=== PATIENT | male | born 1950 | race Caucasian/White ===

== ENCOUNTER 2024-05-03 08:54 | Outpatient (OUT) | payer MEDICARE, SELFPAY ==
--- NOTE | 2024-05-03 09:00 | CA_ITS ---
Patient Name: TYLER SANDY MR#: [id number] : 1950 Exam Date: 05/03/2024 Ordering Doctor: DR DONNA HOOKS M.D. ECHOCARDIOGRAM REPORT PROCEDURE: CA ECHO DOPPLER COMPLETE INDICATIONS: Mitral valve regurgitation COMPARISON: None. DESCRIPTION: COMPLETE ECHOCARDIOGRAM Real-time transthoracic echocardiography with 2D, M-mode, spectral and color flow Doppler performed. QUALITY: Technical quality was good. LEFT VENTRICLE: Normal chamber size. Mild concentric left ventricular hypertrophy. LV EF: Global left ventricular systolic function is hyperdynamic. Calculated left ventricular ejection fraction is 68% DIASTOLIC: Normal diastolic function. ATRIAL SEPTUM: Inadequately seen. LEFT ATRIUM: Normal chamber size. RIGHT ATRIUM: Normal chamber size. RIGHT VENTRICLE: Normal chamber size. Normal right ventricular systolic function. TRICUSPID VALVE: Normal mobility and thickness. No stenosis with trivial regurgitation. No evidence of pulmonary hypertension. RVSP 28mmHg MITRAL VALVE: Normal mobility and thickness. No evidence of mitral valve stenosis. There is no mitral annular calcification. Trivial mitral regurgitation. AORTIC VALVE: Normal trileaflet appearance. No visible sclerosis. Normal leaflet mobility. No evidence of aortic valve stenosis. No aortic regurgitation. AORTIC ROOT: Normal diameter and appearance. PULMONIC VALVE: Normal thickness and mobility. No stenosis. Trivial regurgitation. PERICARDIUM: No evidence of pericardial effusion. IVC: Collapses with inspirations. Normal size. CONCLUSION: 1. Global left ventricular systolic function is hyperdynamic; visually estimated ejection fraction 65 to 70% 2. Mildly increased left ventricular wall thickness 3. Normal right ventricular size and systolic function 4. Normal diastolic function 5. No significant valvular abnormalities Adult Echocardiography Procedure Report Left Ventricle LVEDD (3.7 - 5.6 cm): 4.15 cm LVESD (2.2 - 4.0 cm): 2.89 cm LVIVS thickness (0.6 - 1.2 cm): 1.31 cm LVPW thickness (0.5 - 1.0 cm): 1.13 cm e': 0.14 m/s E - e': 4.57 LVOT Max Gradient: 5.41 mm[Hg] LVOT Area (cm2): 1.16 m/s Peak Velocity (LVOT): 1.16 m/s Mean Velocity (LVOT): 0.69 m/s LVOT Diameter 2.03 cm Left Ventricular Ejection Fraction: 68.42 % Left Atrium LA Volume Index (2D A2C): 37.68 ml/m2 Left Atrium Systolic Dimension: 3.90 cm Mitral Valve MV E to A Ratio: 0.85 MV Max Gradient: MV Mean Gradient: Mitral Valve A-Wave Peak Velocity: 0.76 m/s Mitral Valve E-Wave Peak Velocity: 0.65 m/s Cardiovascular Orifice Area: Right Ventricle RV Internal Diastolic Dimension: 3.66 cm Aorta AO Root Diam: 3.31 cm Ascending Ao Diam: 2.71 cm Aortic Valve AoV Area (Peak Joseph): 3.15 cm2, 3.15 cm2 AoV Area (VTI): 3.00 cm2, 3.00 cm2 Deceleration Hernando: Pressure Half-Time: Peak Velocity(Antegrade Flow): 1.19 m/s Peak Gradient(Antegrade Flow): 5.68 mm[Hg] Mean Velocity(Antegrade Flow): 0.79 m/s Mean Gradient(Antegrade Flow): 2.96 mm[Hg] Velocity Time Integral: 29.25 cm Tricuspid Valve Peak Velocity (Regurgitant Flow): 2.26 m/s, 2.49 m/s, 2.41 m/s Peak Velocity: Pulmonic Valve Mean Gradient: 2.65 mm[Hg], 2.58 mm[Hg] Mean Velocity: 0.75 m/s, 0.75 m/s Peak Velocity: 1.14 m/s Peak Gradient: 5.31 mm[Hg], 5.02 mm[Hg] Right Atrium Right Atrium Systolic Pressure: 45.89 ml, 45.89 ml Dictated by: Donna Hooks M.D. on 05/03/2024 at 13:31 Approved by: Donna Hooks M.D. on 05/03/2024 at 13:41
== END 2024-05-03 08:55 | disposition home or self-care (01) ==
LOC: CARD 08:58
PROVIDERS: PCP Internal Medicine; Visit Provider Internal Medicine Interventional Cardiology
DX: I34.0 Nonrheumatic mitral (valve) insufficiency (principal)
CPT/HCPCS: 93306

== ENCOUNTER 2025-04-12 10:30 | Outpatient (OUT) | payer MEDICARE, SELFPAY ==
--- OUTSIDE RECORDS SUMMARY | 2025-04-12 10:37 | XMS_ITS | CCD ---
Author Organization [facility] Care Team Providers Care Pcu Rn Name Role Phone UNKNOWN, PHYSICIAN Referring Unavailable UNKNOWN, PHYSICIAN Primary Care Unavailable TRENA QUINTANA Admitting Unavailable JOSELO RAYMUNDO Attending Unavailable [place] Procedure Practitioner Unavailab nancy HOOKS EHAB A Surgeon Unavailable [place] Procedure Practitioner Unavailab SUMIT [place] Surgeon Unavailable [place] Procedure Practitioner Unavailab nancy RAYMUNDO JOSELO Surgeon Unavailable LAURA, DR CORDOVA Admitting Unavailable LAURA, DR CORDOVA Attending Unavailable LAURA, DR CORDOVA Primary Care Unavailable LAURA, DR CORDOVA Consulting Unavailable BUFFALO, DR JADE Rider Consulting Unavailable Kojo Rodriguez MD Primary Care Provider [phone] Kojo Rodriguez MD Unavailable Kojo Rodriguez MD Primary Care Provider [phone] TRENA HORVATH Admitting Unavailable TRENA HORVATH Attending Unavailable KOJO RODRIGUEZ Primary Care Unavailable TRENA HORVATH Admitting Unavailable TRENA HORVATH Attending Unavailable KOJO RODRIGUEZ Primary Care Unavailable KOJO RODRIGUEZ Attending Unavailable KOJO RODRIGUEZ Attending Unavailable KOJO RODRIGUEZ Attending Unavailable KOJO RODRIGUEZ Attending Unavailable KOJO RODRIGUEZ Attending Unavailable CALVIN ACOSTA Attending Unavailable KOJO RODRIGUEZ Referring Unavailable FLAVIO HOOKS Attending Unavailable Allergies Allergy Classification Reported Allergen(s) Allergy Type Date of Onset Reaction(s) Facility (9 sources) atorvastatin; Translations: [ATORVASTATIN] Drug Allergy 04-06-2024 [facility] Medications Current Medications Medication Drug Class(es) Dates Sig (Normalized) Sig (Original) calcium chloride 0.0014 meq/ml / potassium chloride 0.004 meq/ml / sodium chloride 0.103 meq/ml / sodium lactate 0.028 meq/ml injectable solution (2 sources) Start: 01-30-2025 IntraVENous, at 100 mL/hr, CONTINUOUS, Starting on Thu01/30/25 at 0915, Pre-op (day of surgery) Start: 12-26-2024 IntraVENous, a t 100 mL/hr, CONTINUOUS, Starting on Thu12/26/24 at 0815, Pre-op (day of surgery) empagliflozin 25 mg oral tablet (11 sources) Sodium-Glucose Cotransporter 2 Inhibitor Start: 03-02-2024 End: 03-02-2025 take 1 tablet by mouth once daily empagliflozin (Jardiance) 25 MG Indications: Type 2 diabetes mellitus with other circulatory complications (CMS/HCC) Take 1 tablet (25 mg) by mouth Daily 30 tablet 11 03/02/2024 03/02/2025 Active ezetimibe 10 mg oral tablet (4 sources) Dietary Cholesterol Absorption Inhibitor Start: 12-14-2024 End: 06-12-2025 take 1 tablet by mouth once daily ezetimibe (Zetia) 10 MG tablet Indications: Combined hyperlipidemia (CMS/HCC) , Statin intolerance Take 1 tablet (10 mg) by mouth Daily 30 tablet 5 12/14/2024 06/12/2025 Active lisinopril 20 mg oral tablet (11 sources) Angiotensin Converting Enzyme Inhibitor Start: 10-30-2023 End: 09-13-2025 take 1 tablet by mouth once daily lisinopril 20 MG tablet Indications: Benign essential HTN (CMS/HCC) Take 1 tablet (20 mg) by mouth Daily 30 tablet 11 09/13/2024 09/13/2025 Active metFORMIN hydrochloride 1000 mg oral tablet (13 sources) Biguanide Start: 12-14-2024 take 1 tablet by mouth in the morning metFORMIN (Glucophage) 1000 MG tablet Indications: Type 2 diabetes mellitus with other circulatory complications (CMS/HCC) Take 1 tablet (1,000 mg) by mouth in the morning and 1 tablet (1,000 mg) in the evening. Take with meals. 180 tablet 3 12/14/2024 Active Start: 12-14-2024 take 1 tablet by mirtha th in the morning metFORMIN (Glucophage) 1000 MG tablet Indications: Type 2 diabetes mellitus with other circulatory complications (CMS/HCC) Take 1 tablet (1,000 mg) by mouth in the morning and 1 tablet (1,000 mg) in the evening. Take with meals. 180 tablet 3 12/14/2024 Active Start: 06-13-2024 End: 12-14-2024 take 1 tablet by mouth in the morning metFORMIN (Glucophage) 1000 MG tablet Indications: Type 2 diabetes mellitus with other circulatory complications (CMS/HCC) Take 1 tablet (1,000 mg) by mouth in the morning and 1 tablet (1,000 mg) in the evening. Take with meals. 180 tablet 09/13/2024 12/14/2024 Discontinued (Reorder) 24 hr metoprolol succinate 25 mg extended release oral tablet (11 sources) beta-Adrenergic Carolyn Start: 04-22-2023 take 1 tablet by mouth every twenty-four hours in the morning metoprolol succinate XL (Toprol-XL) 25 MG 24 hr tablet Take 1 tablet by mouth in the morning. 04/22/2023 Active take 1 tablet by mouth once yunior y metoprolol succinate (TOPROL XL) 25 MG extended release tablet Take 1 tablet by mouth daily Suspended naloxone 0.4 mg in 10 mL sodium chloride syringe (2 sources) Start: 01-30-2025 IntraVENous, P RN, Opioid Reversal, Starting on Thu01/30/25 at 1107, PRN if respiratory rate is less than 6/min and patient is difficult to arouse then notify physician STAT. Mix 9 mL of sodium chloride 0.9% with 0.4 mg (1 mL) of naloxone (NARCAN) in 10 mL syringe. (Note: dilution is 0.04 mg/mL) Give 0.08 mg (2 mL of special dilution), slow IV push, repeat up to 0.4 mg (10 mL) or until patient is responsive to physical stimulation and respiratory rate is equal to or greater than 6 breaths/min. Continue to observe, if no response within 3 minutes of administration of 0.4 mg (10 mL) total, repeat dose (0.4 mg as administered previously). Concentration 0.04 mg/mL, PACU only Start: 12-26-2024 IntraVENous, P RN, Opioid Reversal, Starting on Thu12/26/24 at 0935, PRN if respiratory rate is less than 6/min and patient is difficult to arouse then notify physician STAT. Mix 9 mL of sodium chloride 0.9% with 0.4 mg (1 mL) of naloxone (NARCAN) in 10 mL syringe. (Note: dilution is 0.04 mg/mL) Give 0.08 mg (2 mL of special dilution), slow IV push, repeat up to 0.4 mg (10 mL) or until patient is responsive to physical stimulation and respiratory rate is equal to or greater than 6 breaths/min. Continue to observe, if no response within 3 minutes of administration of 0.4 mg (10 mL) total, repeat dose (0.4 mg as administered previously). Concentration 0.04 mg/mL, PACU only Completed/Discontinued Medications Medication Drug Class(es) Dates Sig (Normalized) Sig (Original) aspirin 81 mg delayed release oral tablet (11 sources) Platelet Aggregation Inhibitor, Nonsteroidal Anti-inflammatory Drug take 1 tablet by mouth once daily aspirin 81 MG EC tablet Take 1 tablet by mouth daily Suspended cetirizine hydrochloride 10 mg oral tablet (11 sources) Histamine-1 Receptor Antagonist take 1 tablet by mouth once daily cetirizine (ZYRTEC) 10 MG tablet Take 1 tablet by mouth daily Suspended Misc Natural Products (GLUCOSAMINE CHOND CMP ADVANCED PO) (2 sources) Misc Natural Products (GLUCOSAMINE CHOND CMP ADVANCED PO) Take by mouth Suspended Misc Natural Pro ducts (GLUCOSAMINE CHOND CMP ADVANCED PO) Take by mouth Active Multiple Vitamins-Minerals (THERAPEUTIC MULTIVITAMIN-MINERALS) tablet (2 sources) take 1 tablet by mouth once daily Multiple Vitamins-Minerals (THERAPEUTIC MULTIVITAMIN-MINERALS) tablet Take 1 tablet by mouth daily Suspended take 1 tablet by mouth once yunior y Multiple Vitamins-Minerals (THERAPEUTIC MULTIVITAMIN-MINERALS) tablet Take 1 tablet by mouth daily Active omeprazole 20 mg delayed release oral capsule (11 sources) Proton Pump Inhibitor take 1 capsule by mouth once daily omeprazole (PRILOSEC) 20 MG delayed release capsule Take 1 capsule by mouth daily Suspended take 1 tablet by mouth in the mo rning omeprazole OTC (PriLOSEC OTC) 20 MG EC tablet Take 1 tablet by mouth in the morning. Active phenylephrine hydrochloride 25 mg/ml ophthalmic solution (2 sources) alpha-1 Adrenergic Agonist Start: 01-30-2025 1 drop, Left Eye, SE E ADMIN INSTRUCTIONS, Starting on Thu01/30/25 at 0846, Until Discontinued, To operative eye(s) for 3-5 doses every 5 minutes, starting 30 minutes prior to surgery until dilated, RPh - enter number of doses based on parameters defined by the physician in the admin. comments., Pre-op (day of surgery) Start: 12-26-2024 1 drop, Right Eye, SEE ADMIN INSTRUCTIONS, Starting on Thu12/26/24 at 0747, Until Discontinued, To operative eye(s) for 3-5 doses every 5 minutes, starting 30 minutes prior to surgery, [facility] - enter number of doses based on parameters defined by the physician in the admin. comments., Pre-op (day of surgery) proparacaine hydrochloride 5 mg/ml ophthalmic solution (2 sources) Local Anesthetic Start: 01-30-2025 1 drop, Left Eye, SEE ADMIN INSTRUCTIONS, Starting on Thu01/30/25 at 0846, Until Discontinued, Into the operative eye(s) every 5 minutes for PRN doses starting 30 minutes prior to surgery., Pre-op (day of surgery) Start: 12-26-2024 1 drop, Right Eye, SEE ADMIN INSTRUCTIONS, Starting on Thu12/26/24 at 0747, Until Discontinued, Into the operative eye(s) every 5 minutes for PRN doses starting 30 minutes prior to surgery., Pre-op (day of surgery) rosuvastatin calcium 20 mg oral tablet (6 sources) HMG-CoA Reductase Inhibitor Start: 10-30-2023 End: 10-29-2024 take 1 tablet by mouth in the morning rosuvastatin (Crestor) 20 MG tablet Indications: Coronary artery disease involving iliamna coronary artery of iliamna heart without angina pectoris (CMS/HCC) Take 1 tablet (20 mg) by mouth in the morning. 30 tablet 11 10/30/2023 10/18/2024 Discontinued Saw Tunas, Serenoa repens, (SAW PALMETTO PO) (2 sources) Saw Tunas, Serenoa repens, (SAW PALMETTO PO) Take by mouth Suspended Saw Tunas, Se renoa repens, (SAW PALMETTO PO) Take by mouth Active 5 ml sodium chloride 9 mg/ml injection (20 sources) Start: 01-30-2025 Start: 01-30-2025 Start: 01-30-2025 IntraVENous, a t 5-250 mL/hr, PRN, if patient receiving piggyback infusions and maintenance fluids are not ordered, Starting on Thu01/30/25 at 1107, For piggyback infusion, administer at same rate as piggyback for a total of 25 mL. Enter 25 mL into dose field and piggyback rate into rate field of order. If piggyback is infusing at a rate less than 100 mL/hr, enter 25 mL into dose field and 100 mL/hr into rate field of order., PACU only Start: 01-30-2025 5-40 mL, Intra VENous, EVERY 12 HOURS SCHEDULED (2 times per day), First dose on Thu01/30/25 at 1130, Until Discontinued, For Line Patency: Peripheral IV = 5 mL; Midline or Central Line = 10 mL/lumen. If following IV push medication, administer flush at same rate as the IV push. Flush volume is determined by type of infusion therapy being given. For non-viscous solutions use: Peripheral IV = 5 mL Midline or Central Line = 10 mL/lumen For viscous solutions (i.e. blood components, parenteral nutrition, contrast media, or after obtaining blood sample) use: Peripheral IV = 10 mL Midline or Central Line = 20 mL/lumen, PACU only Start: 01-30-2025 5-40 mL, Intra VENous, PRN, Starting on Thu01/30/25 at 1107, Until Discontinued, Line Care, After every IV line use, For Line Patency: Peripheral IV = 5 mL; Midline or Central Line = 10 mL/lumen. If following IV push medication, administer flush at same rate as the IV push. Flush volume is determined by type of infusion therapy being given. For non-viscous solutions use: Peripheral IV = 5 mL Midline or Central Line = 10 mL/lumen For viscous solutions (i.e. blood components, parenteral nutrition, contrast media, or after obtaining blood sample) use: Peripheral IV = 10 mL Midline or Central Line = 20 mL/lumen, PACU only Start: 12-26-2024 5-40 mL, Intra VENous, EVERY 12 HOURS SCHEDULED (2 times per day), First dose on Thu12/26/24 at 1000, Until Discontinued, For Line Patency: Peripheral IV = 5 mL; Midline or Central Line = 10 mL/lumen. If following IV push medication, administer flush at same rate as the IV push. Flush volume is determined by type of infusion therapy being given. For non-viscous solutions use: Peripheral IV = 5 mL Midline or Central Line = 10 mL/lumen For viscous solutions (i.e. blood components, parenteral nutrition, contrast media, or after obtaining blood sample) use: Peripheral IV = 10 mL Midline or Central Line = 20 mL/lumen, PACU only Start: 12-26-2024 Start: 12-26-2024 Start: 12-26-2024 Start: 12-26-2024 5-40 mL, Intra VENous, EVERY 12 HOURS SCHEDULED (2 times per day), First dose on Thu12/26/24 at 0900, Until Discontinued, For Line Patency: Peripheral IV = 5 mL; Midline or Central Line = 10 mL/lumen. If following IV push medication, administer flush at same rate as the IV push. Flush volume is determined by type of infusion therapy being given. For non-viscous solutions use: Peripheral IV = 5 mL Midline or Central Line = 10 mL/lumen For viscous solutions (i.e. blood components, parenteral nutrition, contrast media, or after obtaining blood sample) use: Peripheral IV = 10 mL Midline or Central Line = 20 mL/lumen, Pre-op (day of surgery) Start: 12-26-2024 IntraVENous, a t 5-250 mL/hr, PRN, if patient receiving piggyback infusions and maintenance fluids are not ordered, Starting on Thu12/26/24 at 0935, For piggyback infusion, administer at same rate as piggyback for a total of 25 mL. Enter 25 mL into dose field and piggyback rate into rate field of order. If piggyback is infusing at a rate less than 100 mL/hr, enter 25 mL into dose field and 100 mL/hr into rate field of order., PACU only Start: 12-26-2024 5-40 mL, Intra VENous, PRN, Starting on Thu12/26/24 at 0935, Until Discontinued, Line Care, After every IV line use, For Line Patency: Peripheral IV = 5 mL; Midline or Central Line = 10 mL/lumen. If following IV push medication, administer flush at same rate as the IV push. Flush volume is determined by type of infusion therapy being given. For non-viscous solutions use: Peripheral IV = 5 mL Midline or Central Line = 10 mL/lumen For viscous solutions (i.e. blood components, parenteral nutrition, contrast media, or after obtaining blood sample) use: Peripheral IV = 10 mL Midline or Central Line = 20 mL/lumen, PACU only tetracaine hydrochloride 5 mg/ml ophthalmic solution (2 sources) Lissa Local Anesthetic Start: 01-30-2025 1 drop, Left Eye, SE E ADMIN INSTRUCTIONS, Starting on Thu01/30/25 at 0846, Until Discontinued, Into the operative eye(s) every 5 minutes for PRN doses starting 30 minutes prior to surgery., Pre-op (day of surgery) Start: 12-26-2024 1 drop, Right Eye, SEE ADMIN INSTRUCTIONS, Starting on Thu12/26/24 at 0747, Until Discontinued, Into the operative eye(s) every 5 minutes for PRN doses starting 30 minutes prior to surgery., Pre-op (day of surgery) tropicamide 10 mg/ml ophthalmic solution (2 sources) Anticholinergic Start: 01-30-2025 1 drop, Left E ye, SEE ADMIN INSTRUCTIONS, Starting on Thu01/30/25 at 0846, Until Discontinued, To operative eye(s) for 3-5 doses every 5 minutes, starting 30 minutes prior to surgery until dilated, RPh - enter number of doses based on parameters defined by the physician in the admin. comments., Pre-op (day of surgery) Start: 12-26-2024 1 drop, Right Eye, SEE ADMIN INSTRUCTIONS, Starting on Thu12/26/24 at 0747, Until Discontinued, To operative eye(s) for 3-5 doses every 5 minutes, starting 30 minutes prior to surgery, RPh - enter number of doses based on parameters defined by the physician in the admin. comments., Pre-op (day of surgery) Problems Active Problems Problem Classification Problem Date Documented Date Episodic/Chronic Cardiac dysrhythmias (2 sources) Paroxysmal atrial fibrillation; Translations: [Paroxysmal atrial fibrillation] 12-14-2024 Chronic Cataract (7 sources) Senile combined form cataract of right eye; Translations: [Combined forms of age-related cataract, right eye] Onset: 12-25-2024 Resolved: 01-30-2025 12-26-2024 Chronic Coronary atherosclerosis and other heart disease (20 sources) Coronary arteriosclerosis; Translations: [Atherosclerotic heart disease of iliam[place] coronary artery without angina pectoris] Onset: 04-12-2021 Resolved: 12-02-2023 10-30-2023 Chronic Diabetes mellitus with complications (15 sources) Type 2 diabetes mellitus; Translations: [Type 2 diabetes mellitus with other circulatory complications] Onset: 10-30-2023 10-30-2023 Chronic Diabetes mellitus without complication (11 sources) Type 2 diabetes mellitus without complication; Translations: [Type 2 diabetes mellitus without complications] Onset: 04-22-2023 Resolved: 12-02-2023 12-02-2023 Chronic Disorders of lipid metabolism (14 sources) Mixed hyperlipidemia; Translations: [Mixed hyperlipidemia] Onset: 10-30-2023 09-01-2024 Chronic Diverticulosis and diverticulitis (9 sources) Diverticula of intestine; Translations: [Diverticulosis of large intestine without perforation or abscess without bleeding] Onset: 10-30-2023 10-30-2023 Chronic Esophageal disorders (9 sources) Gastroesophageal reflux disease without esophagitis; Translations: [Gastro-esophageal reflux disease without esophagitis] Onset: 10-30-2023 10-30-2023 Chronic Essential hypertension (11 sources) Benign essential hypertension; Translations: [Essential (primary) hypertension] Onset: 04-22-2023 10-30-2023 Chronic Heart valve disorders (2 sources) Nonrheumatic mitral (valve) insufficiency; Translations: [Nonrheumatic mitral (valve) insufficiency] Onset: 04-05-2025 Chronic Osteoarthritis (18 sources) Osteoarthritis of right hip joint; Translations: [Unilateral primary osteoarthritis, right hip] Onset: 10-30-2023 10-30-2023 Chronic Other connective tissue disease (2 sources) Muscle pain; Translations: [Myalgia, unspecified site] 09-01-2024 Episodic Other male genital disorders (9 sources) Secondary erectile dysfunction; Translations: [Male erectile dysfunction, unspecified] Onset: 10-30-2023 10-30-2023 Chronic Other male genital disorders (2 sources) Male erectile dysfunction, unspecified; Translations: [Impotence of organic origin] 12-14-2024 Chronic Other nutritional; endocrine; and metabolic disorders (1 source) Cholesterol level - finding; Translations: [Lipoprotein deficiency] Onset: 10-30-2023 10-30-2023 Chronic Other nutritional; endocrine; and metabolic disorders (9 sources) Obese class I; Translations: [Obesity (BMI 30.0-34.9)] Onset: 10-30-2023 10-30-2023 Chronic Other screening for suspected conditions (not mental disorders or infectious disease) (4 sources) Encounter for screening for cardiovascular disorders; Translations: [ENC FOR SCREENING FOR CV DISORDERS] Onset: 01-07-2023 Episodic Other skin disorders (2 sources) Open comedone; Translations: [Acne vulgaris] 10-18-2024 Episodic Other upper respiratory disease (9 sources) Seasonal allergic rhinitis; Translations: [Other seasonal allergic rhinitis] Onset: 10-30-2023 10-30-2023 Chronic Residual codes; unclassified (1 source) Personal history of other specified conditions; Translations: [PERSONAL HISTORY OTH SPEC CONDITION] Onset: 01-12-2023 Episodic Residual codes; unclassified (4 sources) Other specified health status; Translations: [Other drug allergy] Onset: 12-14-2024 12-14-2024 Episodic Spondylosis; intervertebral disc disorders; other back problems (9 sources) Lumbosacral spondylosis without myelopathy; Translations: [Spondylosis without myelopathy or radiculopathy, lumbosacral region] Onset: 10-30-2023 10-30-2023 Chronic Past or Other Problems Problem Classification Problem Date Documented Da te Episodic/Chronic Cardiac dysrhythmias (9 sources) ECG: sinus bradycardia; Translations: [Bradycardia, unspecified] Onset: 04-22-2023 10-30-2023 Episodic Neoplasms of unspecified nature or uncertain behavior (9 sources) Neoplasm of uncertain behavior of skin; Translations: [Neoplasm of uncertain behavior of skin] Onset: 10-30-2023 10-30-2023 Episodic Other non-epithelial cancer of skin (11 sources) Squamous cell carcinoma of scalp; Translations: [Squamous cell carcinoma of skin of scalp and neck] Onset: 10-30-2023 10-30-2023 Episodic Results Test Name Value Interpretation Reference Range Facility Office Visiton 04-05-2025 Follow-up visit [id number] Ama Villegas 1950 M Date Provider Department Center 04/05/2025 [id number], EHAB CARD [facility] Family History Family history unknown: Yes Family Status - Relation Status Age at Mother Father Level of Service:30[address] [place] OFFICE/OUTPATIENT ESTABLISHED MOD MDM 30 MIN Normal [facility] ALBUMIN, RANDOM URINE W/CREA Deana 02-14-2025 ALBUMIN, URINE 0.4 mg/dL Normal See Note: [facility] Comment on above: Result Comment: Refe rence Range: Reference Range Not established Performed By: #### [id number], [id number] #### [facility] [address], [address] [place] [address] Engineering Team Supervisor: Scout Boudreaux MD ALBUMIN/CREATININE RATIO, RANDOM URINE 8 mg/g creat Normal <30 [facility] Comment on above: Result Comment: The ADA defines abnormalities in albumin excretion as follows: Albuminuria Category Result (mg/g creatinine) Normal to Mildly increased <30 Moderately increased 30-299 Severely increased > OR = 300 The ADA recommends that at least two of three specimens collected within a 3-6 month period be abnormal before considering a patient to be within a diagnostic category. Performed By: #### [id number], [id number] #### [facility] [address], [address] [place] [address] Engineering Team Supervisor: Scout Boudreaux MD Creatinine (U) [Mass/Vol] 53 mg/dL Normal 20-320 [facility] Comment on above: Performed By: #### [id number], [id number] #### [facility] [address], [address] [place] [address] Engineering Team Supervisor: Scout Boudreaux MD PSA, TOTALon 02-14-2025 PSA, TOTAL 0.30 ng/mL Normal < OR = 4.00 [facility] Comment on above: Result Comment: The total PSA value from this assay system is standardized against the WHO standard. The test result will be approximately 20% lower when compared to the equimolar-standardized total PSA ([place]). Comparison of serial PSA results should be interpreted with this fact in mind. This test was performed using the Siemens chemiluminescent method. Values obtained from different assay methods cannot be used interchangeably. PSA levels, regardless of value, should not be interpreted as absolute evidence of the presence or absence of disease. Performed By: #### [id number], [id number] #### [facility] [address], [address] [place] [address] Engineering Team Supervisor: Scout Boudreaux MD LIPID PANEL, STANDARDon 01-21 Cholesterol [Mass/Vol] 138 mg/dL Normal <200 [facility] Comment on above: Order Comment: FASTI NG:YES FASTING: YES Performed By: #### [id number] #### [facility] [address], [address] [place] [address] Engineering Team Supervisor: Scout Boudreaux MD Cholesterol in HDL [Mass/Vol] 45 mg/dL Normal > OR = 40 [facility] Comment on above: Order Comment: FASTI NG:YES FASTING: YES Performed By: #### [id number] #### [facility] [address], [address] [place] [address] Engineering Team Supervisor: Scout Boudreaux MD Cholesterol in LDL [Mass/Vol] 60 mg/dL Normal [facility] Comment on above: Order Comment: FASTI NG:YES FASTING: YES Result Comment: Refe rence range: <100 Desirable range <100 mg/dL for primary prevention; <70 mg/dL for patients with CHD or diabetic patients with > or = 2 CHD risk factors. LDL-C is now calculated using the Nimisha calculation, which is a validated novel method providing better accuracy than the Friedewald equation in the estimation of LDL-C. Alcides SS et al. HELLEN. 2013;310(19): 4469-5823 (http://education.ConceptoMed/faq/URR907) Performed By: #### 7 [id number] #### [facility] [address], [address] [place] [address] Engineering Team Supervisor: Scout Boudreaux MD Cholesterol.total/C holesterol in HDL [Mass ratio] 3.1 {ratio} Normal <5.0 [facility] Comment on above: Order Comment: FASTI NG:YES FASTING: YES Performed By: #### 7 [id number] #### [facility] [address], [address] [place] [address] Engineering Team Supervisor: Scout Boudreaux MD NON HDL CHOLESTEROL 93 mg/dL (calc) Normal <130 [facility] Comment on above: Order Comment: FASTI NG:YES FASTING: YES Result Comment: For patients with diabetes plus 1 major ASCVD risk factor, treating to a non-HDL-C goal of <100 mg/dL (LDL-C of <70 mg/dL) is considered a therapeutic option. Performed By: #### 7 [id number] #### [facility] [address], [address] [place] [address] Engineering Team Supervisor: Scout Boudreaux MD Triglyceride [Mass/Vol] 278 mg/dL High <150 [facility] Comment on above: Order Comment: FASTI NG:YES FASTING: YES Result Comment: If a non-fasting specimen was collected, consider repeat triglyceride testing on a fasting specimen if clinically indicated. Arnie et al. J. of Clin. Lipidol. 2015;9:129-169. Performed By: #### 7 600 #### [facility] [place] [address] Engineering Team Supervisor: Scout Boudreaux MD [facility] METABOLIC [facility] 12-15-2024 Albumin [Mass/Vol] 4.7 g/dL Normal 3.6-5.1 [facility] Comment on above: Order Comment: FASTI NG:NO FASTING: NO Performed By: #### 4 96, 67095 #### [facility] [place] [address] Engineering Team Supervisor: Scout Boudreaux MD Albumin/Globulin [Mass ratio] 1.6 {ratio} Normal 1.0-2.5 [facility] Comment on above: Order Comment: FASTI NG:NO FASTING: NO Performed By: #### 4 96, 66756 #### [facility] [place] [address] Engineering Team Supervisor: Scout Boudreaux MD ALP [Catalytic activity/Vol] 90 U/L Normal 35-144 [facility] Comment on above: Order Comment: FASTI NG:NO FASTING: NO Performed By: #### 4 96, [id number] #### [facility] [place] [address] Engineering Team Supervisor: Scout Boudreaux MD ALT [Catalytic activity/Vol] 22 U/L Normal 9-46 [facility] Comment on above: Order Comment: FASTI NG:NO FASTING: NO Performed By: #### 4 96, 79893 #### [facility] [place] [address] Engineering Team Supervisor: Scout Boudreaux MD AST [Catalytic activity/Vol] 22 U/L Normal 10-35 [facility] Comment on above: Order Comment: FASTI NG:NO FASTING: NO Performed By: #### 4 96, 03679 #### [facility] [address], [address] [place] [address] Engineering Team Supervisor: Scout Boudreaux MD Bilirubin [Mass/Vol] 0.5 mg/dL Normal 0.2-1.2 [facility] Comment on above: Order Comment: FASTI NG:NO FASTING: NO Performed By: #### 4 96, 14475 #### [facility] [address], [address] [place] [address] Engineering Team Supervisor: Scout Boudreaux MD BUN/CREATININE RATIO SEE NOTE: Normal 6- [facility] Comment on above: Order Comment: FASTI NG:NO FASTING: NO Result Comment: Not Reported: BUN and Creatinine are within reference range. Performed By: #### 4 96, 41635 #### [facility] [address], [address] [place] [address] Engineering Team Supervisor: Scout Boudreaux MD Calcium [Mass/Vol] 9.7 mg/dL Normal 8.6-10.3 [facility] Comment on above: Order Comment: FASTI NG:NO FASTING: NO Performed By: #### 4 96, 39122 #### [facility] [address], [address] [place] [address] Engineering Team Supervisor: Scout Boudreaux MD Chloride [Moles/Vol] 104 mmol/L Normal 98-110 [facility] Comment on above: Order Comment: FASTI NG:NO FASTING: NO Performed By: #### 4 96, 18438 #### [facility] [address], [address] [place] [address] Engineering Team Supervisor: Scout Boudreaux MD CO2 [Moles/Vol] 28 mmol/L Normal 20-32 [facility] Comment on above: Order Comment: FASTI NG:NO FASTING: NO Performed By: #### 4 96, 96143 #### [facility] [address], [address] [place] [address] Engineering Team Supervisor: Scout Boudreaux MD Creatinine [Mass/Vol] 0.75 mg/dL Normal 0.70-1.28 [facility] Comment on above: Order Comment: FASTI NG:NO FASTING: NO Performed By: #### 4 96, 52488 #### [facility] [address], [address] [place] [address] Engineering Team Supervisor: Scout Boudreaux MD GFR/1.73 sq M.predicted among non-blacks MDRD (S/P/Bld) [Vol rate/Area] 95 mL/min/{1.73_m2} Normal > OR = 60 [facility] Comment on above: Order Comment: FASTI NG:NO FASTING: NO Performed By: #### 4 96, 79880 #### [facility] [place] [address] Engineering Team Supervisor: Scout Boudreaux MD Globulin (S) [Mass/Vol] 3.0 g/dL Normal 1.9-3.7 [facility] Comment on above: Order Comment: FASTI NG:NO FASTING: NO Performed By: #### 4 96, 42777 #### [facility] [place] [address] Engineering Team Supervisor: Scout Boudreaux MD Glucose [Mass/Vol] 140 mg/dL High 65-139 [facility] Comment on above: Order Comment: FASTI NG:NO FASTING: NO Result Comment: Non-fasting reference interval For someone without known diabetes, a glucose value >125 mg/dL indicates that they may have diabetes and this should be confirmed with a follow-up test. Performed By: #### 4 , 01321 #### [facility] [address], [address] [place] [address] Engineering Team Supervisor: Scout Boudreaux MD Potassium [Moles/Vol] 4.4 mmol/L Normal 3.5-5.3 [facility] Comment on above: Order Comment: FASTI NG:NO FASTING: NO Performed By: #### 4 , 43710 #### [facility] [place] [address] Engineering Team Supervisor: Scout Boudreaux MD Protein [Mass/Vol] 7.7 g/dL Normal 6.1-8.1 [facility] Comment on above: Order Comment: FASTI NG:NO FASTING: NO Performed By: #### 4 96, 76126 #### [facility] [address], [address] [place] [address] Engineering Team Supervisor: Scout Boudreaux MD Sodium [Moles/Vol] 141 mmol/L Normal 135-146 [facility] Comment on above: Order Comment: FASTI NG:NO FASTING: NO Performed By: #### 4 96, 42829 #### [facility] [address], [address] [place] [address] Engineering Team Supervisor: Scout Boudreaux MD Urea nitrogen [Mass/Vol] 17 mg/dL Normal 7-25 [facility] Comment on above: Order Comment: FASTI NG:NO FASTING: NO Performed By: #### 4 96, 38458 #### [facility] [address], [address] [place] [address] Engineering Team Supervisor: Scout Boudreaux MD HEMOGLOBIN A1con 12-15-2024 HEMOGLOBIN A1c 6.8 % of total Hgb High <5.7 [facility] Comment on above: Result Comment: For someone without known diabetes, a hemoglobin A1c value of 6.5% or greater indicates that they may have diabetes and this should be confirmed with a follow-up test. For someone with known diabetes, a value <7% indicates that their diabetes is well controlled and a value greater than or equal to 7% indicates suboptimal control. A1c targets should be individualized based on duration of diabetes, age, comorbid conditions, and other considerations. Currently, no consensus exists regarding use of hemoglobin A1c for diagnosis of diabetes for children. Performed By: #### 4 96, 41593 #### [facility] [address], [address] [place] [address] Engineering Team Supervisor: Scout Boudreaux MD Laboratory - Hematology and Cell countson 12-14-2024 HbA1c (Bld) [Mass fraction] 6.7 % [facility] [employer] No Panel Informationon 12-14 [facility] [employer] e Laboratory - Hematology and Cell countson 09-01-2024 HbA1c (Bld) [Mass fraction] 7.0 % [employer] No Panel Informationon 09-01 [employer] US ABD AORTA SCREENINGon US ABD AORTA SCREENING EXAMINATION: US ABD AORTA SCREENING HISTORY: Screening for cardiovascular system disease COMPARISON: No relevant comparison available. TECHNIQUE: Ultrasound examination of the retroperitoneal area was performed, with a focused evaluation of the abdominal aorta. FINDINGS: Proximal aorta: 2.8 x 2.4 cm Mid aorta: 2.3 x 2.3 cm Distal aorta: 2.3 x 2.2 cm Right common iliac artery: 1.4 x 1.5 cm Left common iliac artery: 1.5 x 1.3 cm Normal color and Doppler flow. Mild to moderate atherosclerosis IMPRESSION: No abdominal aortic aneurysm Electronically authenticated by: JADE CASTANON Date: 2023-01-07 09:26 Normal [facility] BASIC METABOLIC PANELon - Calcium [Mass/Vol] 10.3 mg/dL Normal 8.6-10.[address] [facility] Comment on above: Order Comment: No: D o not add to previous draw Performed By: #### 0 0071 #### [facility] [address] [place] [address], [facility] Chloride [Moles/Vol] 96 mmol/L Low 98-107 [facility] Comment on above: Order Comment: No: D o not add to previous draw Performed By: #### 0 0071 #### [facility] [address] [place] [address], [place] CO2 [Moles/Vol] 26 mmol/L Normal 21-31 [facility] Comment on above: Order Comment: No: D o not add to previous draw Performed By: #### 0 0071 #### [facility] [address] [place] [address], [place] Creatinine [Mass/Vol] 0.95 mg/dL Normal 0.70-1.30 [facility] Comment on above: Order Comment: No: D o not add to previous draw Performed By: #### 0 0071 #### [facility] [address] [place] [address], [place] GFR/1.73 sq M predicted among blacks MDRD (S/P/Bld) [Vol rate/Area] mL/min/{1.73_m2} Normal >60 [facility] Comment on above: Order Comment: No: D o not add to previous draw Performed By: #### 0 0071 #### [facility] [address] [place] [address], [place] GFR/1.73 sq M predicted among non-blacks MDRD (S/P/Bld) [Vol rate/Area] mL/min/{1.73_m2} Normal >60 [facility] Comment on above: Order Comment: No: D o not add to previous draw Performed By: #### 0 0071 #### [facility] [address] [place] [address], [place] Glucose [Mass/Vol] 213 mg/dL High 70-100 [facility] Comment on above: Order Comment: No: D o not add to previous draw Performed By: #### 0 0071 #### [facility] [address] [place] [address], [place] Potassium [Moles/Vol] 4.1 mmol/L Normal 3.5-5.1 [facility] Comment on above: Order Comment: No: D o not add to previous draw Performed By: #### 0 0071 #### [facility] [address] [place] [address], [place] Sodium [Moles/Vol] 133 mmol/L Low 136-145 [facility] Comment on above: Order Comment: No: D o not add to previous draw Performed By: #### 0 0071 #### [facility] [address] [place] [address], [place] Urea nitrogen [Mass/Vol] 28 mg/dL High 7-25 [facility] Comment on above: Order Comment: No: D o not add to previous draw Performed By: #### 0 0071 #### [facility] [address] [place] [address], [facility] CBC COMPLETE BLOOD COUNTon 12-12-2018 Erythrocyte distribution width (RBC) [Ratio] 12.1 % Normal 11.5-15.0 [facility] Comment on above: Order Comment: No: D o not add to previous draw Performed By: #### 0 0071 #### [facility] [address] [place] [id number], [facility] Hematocrit (Bld) [Volume fraction] 37.1 % Low 39.0-50.0 The [facility] Comment on above: Order Comment: No: D o not add to previous draw Performed By: #### 0 0071 #### [facility] [address] [place] [address], [facility] Hemoglobin (Bld) [Mass/Vol] 12.7 g/dL Low 13.0-17.0 [facility] Comment on above: Order Comment: No: D o not add to previous draw Performed By: #### 0 0071 #### [facility] [address] [place] [address], [facility] MCH (RBC) [Entitic mass] 30.6 pg Normal 27.0-33.0 The [facility] Comment on above: Order Comment: No: D o not add to previous draw Performed By: #### 0 0071 #### [facility] [address] [place] [address], [facility] MCHC (RBC) [Mass/Vol] 34.2 g/dL Normal 32.0-35.0 The [facility] Comment on above: Order Comment: No: D o not add to previous draw Performed By: #### 0 0071 #### [facility] [address] [place] [id number], [facility] MCV (RBC) [Entitic vol] 89.4 fL Normal 82.0-98.0 The [facility] Comment on above: Order Comment: No: D o not add to previous draw Performed By: #### 0 0071 #### [facility] [address] [facility] [place] [address], [facility] Nucleated RBC/100 WBC (Bld) [Ratio] 0 % Normal 0-0 [facility] Comment on above: Order Comment: No: D o not add to previous draw Performed By: #### 0 0071 #### [facility] [address] [place] [address], [facility] PLAT CNT 362 10*3/uL Normal 150-400 The [facility] Comment on above: Order Comment: No: D o not add to previous draw Performed By: #### 0 0071 #### [facility] [address] [place] [address], [facility] RBC (Bld) [#/Vol] 4.15 10*6/uL Low 4.20-5.70 The [facility] Comment on above: Order Comment: No: D o not add to previous draw Performed By: #### 0 0071 #### [facility] [address] [place] [address], [facility] WBC (Bld) [#/Vol] 13.09 10*3/uL High 4.00-10.60 The [facility] Comment on above: Order Comment: No: D o not add to previous draw Performed By: #### 0 0071 #### [facility] [address] [place] [address], [facility] MAGNESIUM BLOODon 10-12-2019 Magnesium [Mass/Vol] 2.0 mg/dL Normal 1.9-2.7 The [facility] Comment on above: Order Comment: No: D o not add to previous draw Performed By: #### 0 0071 #### [facility] [address] [place] [address], [facility] MODIFIED BARIUM SWALLOWon MODIFIED BARIUM SWALLOW [facility] Department of Radiology [address] [place] [address] [phone] ======== Patient Name: TYLER VILLEGAS : 1950 Sex: M Age: Race: White Pt. Location: [id number] Patient Status: I Ordered Date: 10/12/2019 7:55:00 AM Completed Date: 10/12/2019 11:01 AM Requesting Provider: EMMA GABRIEL Attending Provider: TRENA QUINTANA Report Copy To: Signs & Symptoms: Dysphagia History: See Comments Comments: R/O Aspiration, NO:Pt. less than 19 Exam: MODIFIED BARIUM SWALLOW ======== MODIFIED BARIUM SWALLOW 10/12/2019 11:01 AM EST SIGNS AND SYMPTOMS: Dysphagia TECHNOLOGIST COMMENTS: Modified barium swallow - 1.03 minutes of fluoro time. Dysphagia QUESTION FOR THE RADIOLOGIST: R/O Aspiration, NO:Pt. less than 19 CONTRAST: Contrast: UGI (thin) Barium Sulfate Powder for suspension, 6 ounce, Oral COMPARISON: none FINDINGS: Modified barium swallow was performed in conjunction with speech pathology utilizing puree, honey, nectar and thin liquids. The oral and pharyngeal phases of swallowing were delayed. Aspiration occurred with nectar thick and thin liquids. IMPRESSION: Aspiration with nectar thick and thin liquids. The patient should be able to tolerate a regular diet with nectar thick liquids in small amounts. Electronically signed by:Leonel Daigle. Transcribed by: [email or web address], User Resident: Electronically Signed by: LEONEL DAIGLE @ 10/12/2019 11:40 AM Normal [facility] Comment on above: Order Comment: R/O A spiration, NO:Pt. less than 19 POC GLUCOSE LABon 10-12-2019 Glucose [Mass/Vol] 204 mg/dL High 70-100 The [facility] Comment on above: Performed By: #### 0 0071 #### [facility] [address] [facility] [place] [address], [facility] Glucose [Mass/Vol] 282 mg/dL High 70-100 The [facility] Comment on above: Performed By: #### 0 0071 #### [facility] [address] [facility] [place] [address], [facility] Glucose [Mass/Vol] 254 mg/dL High 70-100 [facility] Comment on above: Performed By: #### 0 0071 #### [address] [address], [facility] PORTABLE CHEST 1 VIEWon 09-24 PORTABLE CHEST 1 VIEW [facility] Department of Radiology [address] [place] [phone] ======== Patient Name: TYLER VILLEGAS : 1950 Sex: M Age: Race: White Pt. Location: [id number] Patient Status: I Ordered Date: 10/12/2019 5:00:00 AM Completed Date: 10/12/2019 06:51 AM Requesting Provider: EMMA GABRIEL Attending Provider: TRENA QUINTANA Report Copy To: Signs & Symptoms: Post CABG History: See Comments Comments: R/O Pneumothorax Exam: PORTABLE CHEST 1 VIEW ======== PORTABLE CHEST 1 VIEW 10/12/2019 6:51 AM EST SIGNS AND SYMPTOMS: Post CABG TECHNOLOGIST COMMENTS: R/o pneumothorax per ordering physician. Chest tube removed. QUESTION FOR THE RADIOLOGIST: R/O Pneumothorax PROTOCOL: AP(PA) view was obtained. COMPARISON: October 11 FINDINGS: No pneumothorax. Heart is not enlarged. Appendage clip again noted. Sternal wires are intact. Cannot exclude small left effusion. Minor atelectasis left base unchanged. IMPRESSION: No evidence of pneumothorax. Persistent atelectasis and postoperative change left lung base. Electronically signed by:Jamie Marshall. Transcribed by: [email or web address], User Resident: Electronically Signed by: JAMIE MARSHALL @ 10/12/2019 09:35 AM Normal [facility] Comment on above: Order Comment: R/O P neumothorax BASIC METABOLIC PANELon - Calcium [Mass/Vol] 9.8 mg/dL Normal 8.6-10.[address] [facility] Comment on above: Order Comment: No: D o not add to previous draw Performed By: #### 0 0071 #### [facility] [address] [facility] [place] [address], [facility] Chloride [Moles/Vol] 96 mmol/L Low 98-107 [facility] Comment on above: Order Comment: No: D o not add to previous draw Performed By: #### 0 0071 #### [facility] [address] [place] [id number], [place] CO2 [Moles/Vol] 30 mmol/L Normal 21-31 The [facility] Comment on above: Order Comment: No: D o not add to previous draw Performed By: #### 0 0071 #### [facility] [address] [place] [id number], [place] Creatinine [Mass/Vol] 0.83 mg/dL Normal 0.70-1.30 The [facility] Comment on above: Order Comment: No: D o not add to previous draw Performed By: #### 0 0071 #### [facility] [address] [place] [address], [place] GFR/1.73 sq M predicted among blacks MDRD (S/P/Bld) [Vol rate/Area] mL/min/{1.73_m2} Normal >60 The [facility] Comment on above: Order Comment: No: D o not add to previous draw Performed By: #### 0 0071 #### [facility] [address] [place] [address], [place] GFR/1.73 sq M predicted among non-blacks MDRD (S/P/Bld) [Vol rate/Area] mL/min/{1.73_m2} Normal >60 The [facility] Comment on above: Order Comment: No: D o not add to previous draw Performed By: #### 0 0071 #### [facility] [address] [place] [address], [place] Glucose [Mass/Vol] 176 mg/dL High 70-100 The [facility] Comment on above: Order Comment: No: D o not add to previous draw Performed By: #### 0 0071 #### [facility] [address] [place] [address], [place] Potassium [Moles/Vol] 3.8 mmol/L Normal 3.5-5.1 The [facility] Comment on above: Order Comment: No: D o not add to previous draw Performed By: #### 0 0071 #### [facility] [address] [place] [address], [place] Sodium [Moles/Vol] 135 mmol/L Low 136-145 The [facility] Comment on above: Order Comment: No: D o not add to previous draw Performed By: #### 0 0071 #### [facility] [address] [place] [address], [place] Urea nitrogen [Mass/Vol] 20 mg/dL Normal 7-25 The [facility] Comment on above: Order Comment: No: D o not add to previous draw Performed By: #### 0 0071 #### [facility] [address] [place] [address], [facility] CBC COMPLETE BLOOD COUNTon 12-11-2018 Erythrocyte distribution width (RBC) [Ratio] 11.9 % Normal 11.5-15.0 The [facility] Comment on above: Order Comment: No: D o not add to previous draw Performed By: #### 0 0071 #### [facility] [address] [place] [id number], [facility] Hematocrit (Bld) [Volume fraction] 33.3 % Low 39.0-50.0 The [facility] Comment on above: Order Comment: No: D o not add to previous draw Performed By: #### 0 0071 #### [facility] [address] [place] [address], [facility] Hemoglobin (Bld) [Mass/Vol] 11.4 g/dL Low 13.0-17.0 The [facility] Comment on above: Order Comment: No: D o not add to previous draw Performed By: #### 0 0071 #### [facility] [address] [place] [address], [facility] MCH (RBC) [Entitic mass] 30.6 pg Normal 27.0-33.0 The [facility] Comment on above: Order Comment: No: D o not add to previous draw Performed By: #### 0 0071 #### [facility] [address] [place] [address], [facility] MCHC (RBC) [Mass/Vol] 34.2 g/dL Normal 32.0-35.0 [facility] Comment on above: Order Comment: No: D o not add to previous draw Performed By: #### 0 0071 #### [facility] [address] [place] [id number], [facility] MCV (RBC) [Entitic vol] 89.3 fL Normal 82.0-98.0 [facility] Comment on above: Order Comment: No: D o not add to previous draw Performed By: #### 0 0071 #### [facility] [address] [place] [address], [facility] Nucleated RBC/100 WBC (Bld) [Ratio] 0 % Normal 0-0 [facility] Comment on above: Order Comment: No: D o not add to previous draw Performed By: #### 0 0071 #### [facility] [address] [place] [address], [facility] PLAT CNT 261 10*3/uL Normal 150-400 The [facility] Comment on above: Order Comment: No: D o not add to previous draw Performed By: #### 0 0071 #### [facility] [address] [place] [address], [facility] RBC (Bld) [#/Vol] 3.73 10*6/uL Low 4.20-5.70 The [facility] Comment on above: Order Comment: No: D o not add to previous draw Performed By: #### 0 0071 #### [facility] [address] [facility] [place] [address], [facility] WBC (Bld) [#/Vol] 9.35 10*3/uL Normal 4.00-10.60 The [facility] Comment on above: Order Comment: No: D o not add to previous draw Performed By: #### 0 0071 #### [facility] [address] [place] [address], [facility] LIVER BATTERYon 10-11-2019 Albumin [Mass/Vol] 4.1 g/dL Normal 3.5-5.7 The [facility] Comment on above: Performed By: #### 0 0071 #### [facility] [address] [place] [id number], [facility] ALKALINE PHOSPH 61 IU/L Normal 34-104 [facility] Comment on above: Performed By: #### 0 0071 #### [facility] [address] [place] [address], [facility] ALT [Catalytic activity/Vol] 22 U/L Normal 7-52 The [facility] Comment on above: Performed By: #### 0 0071 #### [facility] [address] [place] [address], [place] AST [Catalytic activity/Vol] 24 U/L Normal 13-39 [facility] Comment on above: Performed By: #### 0 0071 #### [facility] [address] [place] [address], [facility] Bilirubin [Mass/Vol] 0.8 mg/dL Normal 0.3-1.0 [facility] Comment on above: Performed By: #### 0 0071 #### [facility] [address] [place] [id number], [facility] Bilirubin.direct [Mass/Vol] 0.2 mg/dL Normal 0.0-0.2 [facility] Comment on above: Performed By: #### 0 0071 #### [facility] [address] [place] [id number], [facility] Protein [Mass/Vol] 6.9 g/dL Normal 6.0-8.3 [facility] Comment on above: Performed By: #### 0 0071 #### [facility] [address] [place] [address], [facility] POC GLUCOSE LABon 10-11-2019 Glucose [Mass/Vol] 161 mg/dL High 70-100 [facility] Comment on above: Performed By: #### 0 0071 #### [facility] [address] [place] [address], [place] Glucose [Mass/Vol] 148 mg/dL High 70-100 [facility] Comment on above: Performed By: #### 0 0071 #### [facility] [address] [facility] [address], [facility] Glucose [Mass/Vol] 204 mg/dL High 70-100 [facility] Comment on above: Performed By: #### 0 0071 #### [facility] [address] [facility] [place] [address], [facility] Glucose [Mass/Vol] 216 mg/dL High 70-100 [facility] Comment on above: Performed By: #### 0 0071 #### [facility] [address] [facility] [place] [address], [facility] PORTABLE CHEST 1 VIEWon 09-23 PORTABLE CHEST 1 VIEW [facility] Department of Radiology [address] [place] [phone] ======== Patient Name: TYLER VILLEGAS : 1950 Sex: M Age: Race: White Pt. Location: [id number] Patient Status: I Ordered Date: 10/11/2019 7:50:00 AM Completed Date: 10/11/2019 08:07 AM Requesting Provider: EMMA GABRIEL Attending Provider: TRENA QUINTANA Report Copy To: Signs & Symptoms: Post CABG History: See Comments Comments: R/O Pneumothorax Exam: PORTABLE CHEST 1 VIEW ======== PORTABLE CHEST 1 VIEW 10/11/2019 8:07 AM EST SIGNS AND SYMPTOMS: Post CABG TECHNOLOGIST COMMENTS: s/p CABG 10/06/19 check progress QUESTION FOR THE RADIOLOGIST: R/O Pneumothorax PROTOCOL: AP(PA) view was obtained. COMPARISON: Prior study from the day before. FINDINGS: Frontal view of the chest again revealed mild cardiomegaly with prominent aortic knob similar to prior study. There is prominent left cardiophrenic fat pad and improvement in left retrocardiac atelectasis. Lungs and right costophrenic recess are clear. There is blunting of the left costophrenic recess suggesting small effusion which appears decreased since prior study. Left atrial appendage metallic clip in place as well as sternotomy wires, unchanged. Azygous lobe and fissure are again seen. Bony skeleton appears unchanged. IMPRESSION: No evidence of pneumothorax. Postoperative changes similar to prior study with improvement in bilateral atelectatic changes and possible small left pleural effusion. Electronically signed by:Elissa Solis. Transcribed by: [email or web address], User Resident: Electronically Signed by: ELISSA SOLIS @ 10/11/2019 08:49 AM Normal [facility] Comment on above: Order Comment: R/O P neumothorax BASIC METABOLIC PANELon 11- Calcium [Mass/Vol] 9.0 mg/dL Normal 8.6-10.[address] [facility] Comment on above: Order Comment: No: D o not add to previous draw Performed By: #### 0 0071 #### [facility] [address] [place] [address], [facility] Chloride [Moles/Vol] 100 mmol/L Normal 98-107 [facility] Comment on above: Order Comment: No: D o not add to previous draw Performed By: #### 0 0071 #### [facility] [address] [place] [address], [place] CO2 [Moles/Vol] 28 mmol/L Normal 21-31 The [facility] Comment on above: Order Comment: No: D o not add to previous draw Performed By: #### 0 0071 #### [facility] [address] [place] [id number], [facility] Creatinine [Mass/Vol] 0.73 mg/dL Normal 0.70-1.30 [facility] Comment on above: Order Comment: No: D o not add to previous draw Performed By: #### 0 0071 #### [facility] [address] [place] [address], [place] GFR/1.73 sq M predicted among blacks MDRD (S/P/Bld) [Vol rate/Area] mL/min/{1.73_m2} Normal >60 [facility] Comment on above: Order Comment: No: D o not add to previous draw Performed By: #### 0 0071 #### [facility] [address] [place] [id number], [facility] GFR/1.73 sq M predicted among non-blacks MDRD (S/P/Bld) [Vol rate/Area] mL/min/{1.73_m2} Normal >60 [facility] Comment on above: Order Comment: No: D o not add to previous draw Performed By: #### 0 0071 #### [facility] [address] [place] [address], [facility] Glucose [Mass/Vol] 177 mg/dL High 70-100 [facility] Comment on above: Order Comment: No: D o not add to previous draw Performed By: #### 0 0071 #### [facility] [address] [place] [address], [place] Potassium [Moles/Vol] 3.5 mmol/L Normal 3.5-5.1 [facility] Comment on above: Order Comment: No: D o not add to previous draw Performed By: #### 0 0071 #### [facility] [address] [place] [address], [place] Sodium [Moles/Vol] 135 mmol/L Low 136-145 [facility] Comment on above: Order Comment: No: D o not add to previous draw Performed By: #### 0 0071 #### [facility] [address] [place] [address], [facility] Urea nitrogen [Mass/Vol] 17 mg/dL Normal 7-25 [facility] Comment on above: Order Comment: No: D o not add to previous draw Performed By: #### 0 0071 #### [facility] [address] [place] [address], [facility] CBC COMPLETE BLOOD COUNTon 12-10-2018 Erythrocyte distribution width (RBC) [Ratio] 12.1 % Normal 11.5-15.0 [facility] Comment on above: Order Comment: No: D o not add to previous draw Performed By: #### 0 0071 #### [facility] [address] [place] [address], [facility] Hematocrit (Bld) [Volume fraction] 31.4 % Low 39.0-50.0 [facility] Comment on above: Order Comment: No: D o not add to previous draw Performed By: #### 0 0071 #### [facility] [address] [place] [address], [facility] Hemoglobin (Bld) [Mass/Vol] 10.6 g/dL Low 13.0-17.0 [facility] Comment on above: Order Comment: No: D o not add to previous draw Performed By: #### 0 0071 #### [facility] [address] [place] [address], [facility] MCH (RBC) [Entitic mass] 30.5 pg Normal 27.0-33.0 [facility] Comment on above: Order Comment: No: D o not add to previous draw Performed By: #### 0 0071 #### [facility] [address] [place] [address], [facility] MCHC (RBC) [Mass/Vol] 33.8 g/dL Normal 32.0-35.0 [facility] Comment on above: Order Comment: No: D o not add to previous draw Performed By: #### 0 0071 #### [facility] [address] [facility] [place] [address], [facility] MCV (RBC) [Entitic vol] 90.2 fL Normal 82.0-98.0 [facility] Comment on above: Order Comment: No: D o not add to previous draw Performed By: #### 0 0071 #### [facility] [address] [place] [address], [facility] Nucleated RBC/100 WBC (Bld) [Ratio] 0 % Normal 0-0 [facility] Comment on above: Order Comment: No: D o not add to previous draw Performed By: #### 0 0071 #### [facility] [address] [place] [address], [facility] PLAT CNT 200 10*3/uL Normal 150-400 [facility] Comment on above: Order Comment: No: D o not add to previous draw Performed By: #### 0 0071 #### [facility] [address] [place] [address], [facility] RBC (Bld) [#/Vol] 3.48 10*6/uL Low 4.20-5.70 The [facility] Comment on above: Order Comment: No: D o not add to previous draw Performed By: #### 0 0071 #### [facility] [address] [facility] [place] [address], [facility] WBC (Bld) [#/Vol] 8.81 10*3/uL Normal 4.00-10.60 [facility] Comment on above: Order Comment: No: D o not add to previous draw Performed By: #### 0 0071 #### [facility] [address] [place] [address], [facility] MAGNESIUM BLOODon 10-10-2019 Magnesium [Mass/Vol] 1.7 mg/dL Low 1.9-2.7 [facility] Comment on above: Order Comment: No: D o not add to previous draw Performed By: #### 0 0071 #### [facility] [address] [place] [address], [facility] POC GLUCOSE LABon 10-10-2019 Glucose [Mass/Vol] 200 mg/dL High 70-100 [facility] Comment on above: Performed By: #### 0 0071 #### [facility] [address] [facility] [place] [address], [place] Glucose [Mass/Vol] 158 mg/dL High 70-100 [facility] Comment on above: Performed By: #### 0 0071 #### [facility] [address] [facility] [place] [address], [place] Glucose [Mass/Vol] 228 mg/dL High 70-100 [facility] Comment on above: Performed By: #### 0 0071 #### [facility] [address] [facility] [place] [address], [place] Glucose [Mass/Vol] 208 mg/dL High 70-100 [facility] Comment on above: Performed By: #### 0 0071 #### [facility] [address] [facility] [place] [address], [facility] PORTABLE CHEST 1 VIEWon 09-23 PORTABLE CHEST 1 VIEW [facility] Department of Radiology [address] [place] [phone] ======== Patient Name: TYLER VILLEGAS : 1950 Sex: M Age: Race: White Pt. Location: [id number] Patient Status: I Ordered Date: 10/10/2019 5:00:00 AM Completed Date: 10/10/2019 05:58 AM Requesting Provider: DWAYNE MURRY Attending Provider: TRENA QUINTANA Report Copy To: Signs & Symptoms: Pneumo Thorax History: See Comments Comments: R/O Pneumothorax Exam: PORTABLE CHEST 1 VIEW ======== PORTABLE CHEST 1 VIEW 10/10/2019 5:58 AM EST SIGNS AND SYMPTOMS: Pneumo Thorax TECHNOLOGIST COMMENTS: CABG QUESTION FOR THE RADIOLOGIST: R/O Pneumothorax PROTOCOL: AP(PA) view was obtained. COMPARISON: October 09 FINDINGS: Heart remains enlarged sternal wires intact. Atrial clip is unchanged in position. No vascular congestion. Persistent minor atelectasis right and left midlung. Left lingular atelectasis. Tiny left apical pneumothorax. IMPRESSION: Tiny left apical pneumothorax has developed since the previous study. Persistent lingular atelectasis. Chronic cardiomegaly. Electronically signed by:Jamie Marshall. Transcribed by: [email or web address], User Resident: Electronically Signed by: JAMIE MARSHALL @ 10/10/2019 07:33 AM Normal [facility] Comment on above: Order Comment: R/O P neumothorax BASIC METABOLIC PANELon 09-23 Calcium [Mass/Vol] 8.9 mg/dL Normal 8.6-10.[address] [facility] Comment on above: Order Comment: No: D o not add to previous draw Performed By: #### 0 0071 #### [facility] [address] [place] [address], [place] Chloride [Moles/Vol] 100 mmol/L Normal 98-107 [facility] Comment on above: Order Comment: No: D o not add to previous draw Performed By: #### 0 0071 #### [facility] [address] [place] [address], [place] CO2 [Moles/Vol] 27 mmol/L Normal 21-31 The [facility] Comment on above: Order Comment: No: D o not add to previous draw Performed By: #### 0 0071 #### [facility] [address] [place] [address], [facility] Creatinine [Mass/Vol] 0.70 mg/dL Normal 0.70-1.30 [facility] Comment on above: Order Comment: No: D o not add to previous draw Performed By: #### 0 0071 #### [facility] [address] [place] [address], [facility] GFR/1.73 sq M predicted among blacks MDRD (S/P/Bld) [Vol rate/Area] mL/min/{1.73_m2} Normal >60 [facility] Comment on above: Order Comment: No: D o not add to previous draw Performed By: #### 0 0071 #### [facility] [address] [place] [address], [facility] GFR/1.73 sq M predicted among non-blacks MDRD (S/P/Bld) [Vol rate/Area] mL/min/{1.73_m2} Normal >60 [facility] Comment on above: Order Comment: No: D o not add to previous draw Performed By: #### 0 0071 #### [facility] [address] [place] [address], [place] Glucose [Mass/Vol] 201 mg/dL High 70-[address] [facility] Comment on above: Order Comment: No: D o not add to previous draw Performed By: #### 0 0071 #### [facility] [address] [place] [address], [place] Potassium [Moles/Vol] 3.9 mmol/L Normal 3.5-5.1 [facility] Comment on above: Order Comment: No: D o not add to previous draw Performed By: #### 0 0071 #### [facility] [address] Sodium [Moles/Vol] 134 mmol/L Low 136-145 The [facility] Comment on above: Order Comment: No: D o not add to previous draw Performed By: #### 0 0071 #### [facility] [address] [facility]. [address] Urea nitrogen [Mass/Vol] 15 mg/dL Normal 7-25 [facility] Comment on above: Order Comment: No: D o not add to previous draw Performed By: #### 0 0071 #### [facility] [address] CBC W/DIFFon 10-09-2019 ABS BASOPHILS 0.0 10*3/uL Normal 0.0-0.2 The [facility] Comment on above: Order Comment: No: D o not add to previous draw Performed By: #### 5 6101, [id number] #### [facility] [address] ABS IMM GRANS 0.1 10*3/uL Normal 0.0-0.2 The [facility] Comment on above: Order Comment: No: D o not add to previous draw Performed By: #### 5 610, 10053 #### [facility] [address] [facility]. [address] ABS NEUTROPHILS 7.3 10*3/uL Normal 1.6-7.6 The [facility] Comment on above: Order Comment: No: D o not add to previous draw Performed By: #### 5 610, 91244 #### [facility] [address] [facility] [place] [address], [facility] Basophils/100 WBC (Bld) 0.4 % Normal 0.0-1.0 [facility] Comment on above: Order Comment: No: D o not add to previous draw Performed By: #### 5 610, 87622 #### [facility] [address] Eosinophils (Bld) [#/Vol] 0.1 10*3/uL Normal 0.0-0.5 [facility] Comment on above: Order Comment: No: D o not add to previous draw Performed By: #### 5 6100, 54307 #### [facility] [address] [place] [address], [facility] Eosinophils/100 WBC (Bld) 0.8 % Normal 0.0-6.0 [facility] Comment on above: Order Comment: No: D o not add to previous draw Performed By: #### 5 6100, [id number] #### [facility] [address] [facility] Erythrocyte distribution width (RBC) [Ratio] 12.1 % Normal 11.5-15.0 [facility] Comment on above: Order Comment: No: D o not add to previous draw Performed By: #### 5 6100, 83051 #### [facility] [address] [facility] [address], [facility] Hematocrit (Bld) [Volume fraction] 29.7 % Low 39.0-50.0 [facility] Comment on above: Order Comment: No: D o not add to previous draw Performed By: #### 5 6100, 58719 #### [facility] [address] [place] [address], [facility] Hemoglobin (Bld) [Mass/Vol] 10.0 g/dL Low 13.0-17.0 [facility] Comment on above: Order Comment: No: D o not add to previous draw Performed By: #### 5 6100, 64464 #### [facility] [address] [place] [address], [facility] IMMATURE GRANS 0.5 % Normal 0.0-1.0 The [facility] Comment on above: Order Comment: No: D o not add to previous draw Performed By: #### 5 6100, 53952 #### [facility] [address] [place] [id number], [facility] Lymphocytes (Bld) [#/Vol] 1.2 10*3/uL Normal 1.2-4.0 [facility] Comment on above: Order Comment: No: D o not add to previous draw Performed By: #### 5 6100, 40930 #### [facility] [address] [place] [id number], [facility] Lymphocytes/100 WBC (Bld) 12.7 % Low 20.0-45.0 [facility] Comment on above: Order Comment: No: D o not add to previous draw Performed By: #### 5 6100, 14605 #### [facility] [address] [place] [address], [facility] MCH (RBC) [Entitic mass] 30.9 pg Normal 27.0-33.0 [facility] Comment on above: Order Comment: No: D o not add to previous draw Performed By: #### 5 6100, 02636 #### [facility] [address] [place] [address], [facility] MCHC (RBC) [Mass/Vol] 33.7 g/dL Normal 32.0-35.0 [facility] Comment on above: Order Comment: No: D o not add to previous draw Performed By: #### 5 6100, 30149 #### [facility] [address] [place] [address], [facility] MCV (RBC) [Entitic vol] 91.7 fL Normal 82.0-98.0 [facility] Comment on above: Order Comment: No: D o not add to previous draw Performed By: #### 5 610, 89440 #### [facility] [address] [place] [id number], [facility] Monocytes (Bld) [#/Vol] 0.9 10*3/uL Normal 0.1-1.0 [facility] Comment on above: Order Comment: No: D o not add to previous draw Performed By: #### 5 6100, 59992 #### [facility] [address] [place] [address], [place] MONOS 9.4 % Normal 5.0-12.0 [facility] Comment on above: Order Comment: No: D o not add to previous draw Performed By: #### 5 6100, 45822 #### [facility] [address] [place] [id number], [place] Neutrophils/100 WBC (Bld) 76.2 % High 40.0-72.0 [facility] Comment on above: Order Comment: No: D o not add to previous draw Performed By: #### 5 6100, 02010 #### [facility] [address] [place] [address], [place] Nucleated RBC/100 WBC (Bld) [Ratio] 0 % Normal 0-0 [facility] Comment on above: Order Comment: No: D o not add to previous draw Performed By: #### 5 6100, 54169 #### [facility] [address] [place] [id number], [place] PLAT CNT 140 10*3/uL Low 150-400 The [facility] Comment on above: Order Comment: No: D o not add to previous draw Performed By: #### 5 6100, 86790 #### [facility] [address] [place] [id number], [place] RBC (Bld) [#/Vol] 3.24 10*6/uL Low 4.20-5.70 The [facility] Comment on above: Order Comment: No: D o not add to previous draw Performed By: #### 5 610, 72331 #### [facility] [address] [place] [address], [place] WBC (Bld) [#/Vol] 9.63 10*3/uL Normal 4.00-10.60 The [facility] Comment on above: Order Comment: No: D o not add to previous draw Performed By: #### 5 6101, 56811 #### [facility] [address] [place] [address], [place] MAGNESIUM BLOODon 10-09-2019 Magnesium [Mass/Vol] 1.7 mg/dL Low 1.9-2.7 [facility] Comment on above: Order Comment: No: D o not add to previous draw Performed By: #### 5 6101, 22403 #### [facility] [address] [place] [address], [place] POC GLUCOSE LABon 10-09-2019 Glucose [Mass/Vol] 203 mg/dL High 70-100 The [facility] Comment on above: Performed By: #### 0 0071 #### [facility] [address] [place] [address], [place] Glucose [Mass/Vol] 132 mg/dL High 70-100 The [facility] Comment on above: Performed By: #### 0 0071 #### [facility] [address] [place] [address], [place] Glucose [Mass/Vol] 193 mg/dL High 70-100 [facility] Comment on above: Performed By: #### 0 0071 #### [facility] [address] [place] [address], [place] Glucose [Mass/Vol] 202 mg/dL High 70-100 [facility] Comment on above: Performed By: #### 0 0071 #### [facility] [address] [place] [address], [place] Glucose [Mass/Vol] 204 mg/dL High 70-100 [facility] Comment on above: Performed By: #### 0 0071 #### [facility] [address] [place] [address], [place] PORTABLE CHEST 1 VIEWon 09-23 PORTABLE CHEST 1 VIEW [facility] Department of Radiology [address] [place] [phone] ======== Patient Name: TYLER VILLEGAS : 1950 Sex: M Age: Race: White Pt. 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 QUESTION FOR THE RADIOLOGIST: R/O Pneumothorax PROTOCOL: AP(PA) view was obtained. COMPARISON: October 08, 2019 FINDINGS: Trachea is midline. Cardiac mediastinal silhouette is within normal limits. Postoperative changes mediastinum and sternotomy wires and left atrial appendage clip. Removal of mediastinal drain. Left basilar chest tube is in place. Redemonstration of bilateral midlung atelectasis. Fluid in the azygos fissure. IMPRESSION: Unchanged postoperative appearance of the chest. Left basilar chest tube in place with left basilar atelectasis versus trace pleural effusion. Bilateral midlung atelectasis. Approved by:Elzbieta Rbuy on 10/09/2019 7:05 AM EST. Maurice Rosenthal, have reviewed the images and report and concur with these findings. Electronically signed by:Maurice Leung. Transcribed by: [email or web address], User Resident: ELZBIETA MOLINA Electronically Signed by: MAURICE LEUNG @ 10/09/2019 02:24 PM I personally read this/these film(s) with this resident Normal [facility] Comment on above: Order Comment: R/O P neumothorax BASIC METABOLIC PANELon 09-23 Calcium [Mass/Vol] 8.6 mg/dL Normal 8.6-10.[address] [facility] Comment on above: Order Comment: No: D o not add to previous draw Performed By: #### 5 6101, [id number] #### [facility] [address] [place] [id number], [facility] Chloride [Moles/Vol] 102 mmol/L Normal 98-107 [facility] Comment on above: Order Comment: No: D o not add to previous draw Performed By: #### 5 6101, 35911 #### [facility] [address] [place] [address], [place] CO2 [Moles/Vol] 28 mmol/L Normal 21-31 The [facility] [place] Comment on above: Order Comment: No: D o not add to previous draw Performed By: #### 5 6101, 91137 #### [facility] [address] [place] [address], [place] Creatinine [Mass/Vol] 0.60 mg/dL Low 0.70-1.30 [facility] Comment on above: Order Comment: No: D o not add to previous draw Performed By: #### 5 6101, 96025 #### [facility] [address] [place] [address], [place] GFR/1.73 sq M predicted among blacks MDRD (S/P/Bld) [Vol rate/Area] mL/min/{1.73_m2} Normal >60 [facility] Comment on above: Order Comment: No: D o not add to previous draw Performed By: #### 5 610, 09633 #### [facility] [address] [place] [address], [facility] GFR/1.73 sq M predicted among non-blacks MDRD (S/P/Bld) [Vol rate/Area] mL/min/{1.73_m2} Normal >60 [facility] Comment on above: Order Comment: No: D o not add to previous draw Performed By: #### 5 610, 72892 #### [facility] [address] [place] [address], [facility] Glucose [Mass/Vol] 101 mg/dL High 70-100 The [facility] Comment on above: Order Comment: No: D o not add to previous draw Performed By: #### 5 610, 96478 #### [facility] [address] [place] [address], [facility] Potassium [Moles/Vol] 3.7 mmol/L Normal 3.5-5.1 [facility] Comment on above: Order Comment: No: D o not add to previous draw Performed By: #### 5 610, 84453 #### [facility] [address] [place] [address], [facility] Sodium [Moles/Vol] 135 mmol/L Low 136-145 The [facility] Comment on above: Order Comment: No: D o not add to previous draw Performed By: #### 5 610, 66545 #### [facility] [address] [place] [address], [place] Urea nitrogen [Mass/Vol] 9 mg/dL Normal 7-25 [facility] Comment on above: Order Comment: No: D o not add to previous draw Performed By: #### 5 610, 99733 #### [facility] [address] [place] [address], [place] CBC W/DIFFon 10-08-2019 ABS BASOPHILS 0.0 10*3/uL Normal 0.0-0.2 The [facility] Comment on above: Order Comment: No: D o not add to previous draw Performed By: #### 5 610, 95008 #### [facility] [address] [place] [address], [facility] ABS IMM GRANS 0.1 10*3/uL Normal 0.0-0.2 The [facility] Comment on above: Order Comment: No: D o not add to previous draw Performed By: #### 5 610, 75396 #### [facility] [address] [place] [address], [facility] ABS NEUTROPHILS 8.2 10*3/uL High 1.6-7.6 The [facility] Comment on above: Order Comment: No: D o not add to previous draw Performed By: #### 5 6100, 33183 #### [facility] [address] [place] [address], [facility] Basophils/100 WBC (Bld) 0.3 % Normal 0.0-1.0 [facility] Comment on above: Order Comment: No: D o not add to previous draw Performed By: #### 5 6100, 75339 #### [facility] [address] [facility] [facility] [address], [facility] Eosinophils (Bld) [#/Vol] 0.1 10*3/uL Normal 0.0-0.5 [facility] Comment on above: Order Comment: No: D o not add to previous draw Performed By: #### 5 610, 85768 #### [facility] [address] [place] [address], [facility] Eosinophils/100 WBC (Bld) 0.6 % Normal 0.0-6.0 [facility] Comment on above: Order Comment: No: D o not add to previous draw Performed By: #### 5 610, 16535 #### [facility] [address] [place] [id number] [place] [address] Erythrocyte distribution width (RBC) [Ratio] 12.3 % Normal 11.5-15.0 [facility] Comment on above: Order Comment: No: D o not add to previous draw Performed By: #### 5 6100, 85689 #### [facility] [address] [place] [address], [facility] Hematocrit (Bld) [Volume fraction] 29.1 % Low 39.0-50.0 [facility] Comment on above: Order Comment: No: D o not add to previous draw Performed By: #### 5 6100, 27591 #### [facility] [address] [place] [address], [facility] Hemoglobin (Bld) [Mass/Vol] 9.7 g/dL Low 13.0-17.0 [facility] Comment on above: Order Comment: No: D o not add to previous draw Performed By: #### 5 6100, 05506 #### [facility] [address] [place] [address], [place] IMM PLATELET FRAC 4.6 % Normal 0.8-6.3 The [facility] Comment on above: Order Comment: No: D o not add to previous draw Performed By: #### 5 6100, 91167 #### [facility] [address] [place] [address], [facility] IMMATURE GRANS 0.5 % Normal 0.0-1.0 The [facility] Comment on above: Order Comment: No: D o not add to previous draw Performed By: #### 5 6100, 27303 #### [facility] [address] [place] [id number], [facility] Lymphocytes (Bld) [#/Vol] 1.8 10*3/uL Normal 1.2-4.0 [facility] Comment on above: Order Comment: No: D o not add to previous draw Performed By: #### 5 6100, 24547 #### [facility] [address] Lymphocytes/100 WBC (Bld) 16.1 % Low 20.0-45.0 [facility] Comment on above: Order Comment: No: D o not add to previous draw Performed By: #### 5 6100, 55920 #### [facility] [address] [place] [id number], [facility] MCH (RBC) [Entitic mass] 31.1 pg Normal 27.0-33.0 [facility] Comment on above: Order Comment: No: D o not add to previous draw Performed By: #### 5 6100, 10493 #### [facility] [address] [place] [address], [facility] MCHC (RBC) [Mass/Vol] 33.3 g/dL Normal 32.0-35.0 [facility] Comment on above: Order Comment: No: D o not add to previous draw Performed By: #### 5 6100, 82846 #### [facility] [address] [place] [address], [facility] MCV (RBC) [Entitic vol] 93.3 fL Normal 82.0-98.0 [facility] Comment on above: Order Comment: No: D o not add to previous draw Performed By: #### 5 6100, 98568 #### [facility] [address] [place] [address], [facility] Monocytes (Bld) [#/Vol] 1.2 10*3/uL High 0.1-1.0 [facility] Comment on above: Order Comment: No: D o not add to previous draw Performed By: #### 5 6100, 21609 #### [facility] [address] [place] [id number], [facility] MONOS 10.4 % Normal 5.0-12.0 [facility] Comment on above: Order Comment: No: D o not add to previous draw Performed By: #### 5 6100, 28552 #### [facility] [address] [place] [address], [facility] Neutrophils/100 WBC (Bld) 72.1 % High 40.0-72.0 [facility] Comment on above: Order Comment: No: D o not add to previous draw Performed By: #### 5 610, 99837 #### [facility] [address] [place] [address], [facility] Nucleated RBC/100 WBC (Bld) [Ratio] 0 % Normal 0-0 [facility] Comment on above: Order Comment: No: D o not add to previous draw Performed By: #### 5 610, 25763 #### [facility] [address] [place] [id number], [facility] PLAT CNT 119 10*3/uL Low 150-400 The [facility] Comment on above: Order Comment: No: D o not add to previous draw Performed By: #### 5 6100, 39764 #### [facility] [address] [place] [address], [facility] RBC (Bld) [#/Vol] 3.12 10*6/uL Low 4.20-5.70 The [facility] Comment on above: Order Comment: No: D o not add to previous draw Performed By: #### 5 610, 85269 #### [facility] [address] [place] [id number], [facility] WBC (Bld) [#/Vol] 11.40 10*3/uL High 4.00-10.60 [facility] Comment on above: Order Comment: No: D o not add to previous draw Performed By: #### 5 6101, 61763 #### [facility] [address] [place] [id number], [place] MAGNESIUM BLOODon 10-08-2019 Magnesium [Mass/Vol] 1.6 mg/dL Low 1.9-2.7 [facility] Comment on above: Order Comment: No: D o not add to previous draw Performed By: #### 5 610, 15365 #### [facility] [address] [place] [address], [place] POC GLUCOSE LABon 10-08-2019 Glucose [Mass/Vol] 165 mg/dL High 70-100 [facility] Comment on above: Performed By: #### 5 610, 56499 #### [facility] [address] [place] [address], [place] Glucose [Mass/Vol] 186 mg/dL High 70-100 [facility] Comment on above: Performed By: #### 5 610, 80347 #### [facility] [address] [place] [address], [place] Glucose [Mass/Vol] 144 mg/dL High 70-100 [facility] Comment on above: Performed By: #### 5 610, 52049 #### [facility] [address] [place] [address], [place] Glucose [Mass/Vol] 102 mg/dL High 70-100 [facility] Comment on above: Performed By: #### 5 610, 81453 #### [facility] [address] [place] [address], [place] Glucose [Mass/Vol] 107 mg/dL High 70-100 [facility] Comment on above: Performed By: #### 8 6002 #### [facility] [address] [place] [address], [place] Glucose [Mass/Vol] 99 mg/dL Normal 70-100 [facility] Comment on above: Performed By: #### 8 6002 #### [facility] [address] [place] [address], [place] Glucose [Mass/Vol] 94 mg/dL Normal 70-100 [facility] Comment on above: Performed By: #### 8 6002 #### [address] [place], [place] [address] [place] [address] PORTABLE CHEST 1 VIEWon 09-23 PORTABLE CHEST 1 VIEW [facility] Department of Radiology [address] [place] [id number] ======== Patient Name: TYLER VILLEGAS : 1950 Sex: M Age: Race: White Pt. Location: [id number] Patient Status: I Ordered Date: 10/08/2019 5:00:00 AM Completed Date: 10/08/2019 07:15 AM Requesting Provider: DWAYNE MURRY Attending Provider: TRENA QUINTANA Report Copy To: Signs & Symptoms: Post OP History: See Comments Comments: R/O Pneumothorax Exam: PORTABLE CHEST 1 VIEW ======== PORTABLE CHEST 1 VIEW 10/08/2019 7:15 AM EST SIGNS AND SYMPTOMS: Post OP TECHNOLOGIST COMMENTS: R/O pneumothorax per ordering physician. 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 QUESTION FOR THE RADIOLOGIST: R/O Pneumothorax PROTOCOL: AP(PA) view was obtained. COMPARISON: October 07, 2019. FINDINGS: Interval removal of the [place]-Cy catheter. The mediastinal drains are unchanged in position. The cardiomediastinal silhouette is unchanged. Trachea is midline. There is central pulmonary vascular congestion. There is left basilar airspace opacity and small pleural effusion, slightly increased. No pneumothorax. Atriclip and sternotomy wires are unchanged. Incidental note of a azygos fissure and lobe. IMPRESSION: 1. Stable pulmonary vascular congestion. 2. Slightly increased left basilar airspace disease likely atelectasis and small pleural effusion. 3. No pneumothorax. Approved by:Beau Lara on 10/08/2019 7:38 AM EST. I, Maurice Leung, have reviewed the images and report and concur with these findings. Electronically signed by:Maurice Leung. Transcribed by: [email or web address], User Resident: BEAU LARA Electronically Signed by: MAURICE LEUNG @ 10/08/2019 11:17 AM I personally read this/these film(s) with this resident Normal The [facility] Comment on above: Order Comment: R/O P neumothorax APTTon 10-07-2019 aPTT Coag (Bld) [Time] 28.5 s Normal 25.0-35.0 [facility] Comment on above: Order Comment: post op day 1No: Do not add to previous draw Result Comment: ALL RESULTS MUST BE INTERPRETED WITH RESPECT TO BLOOD DRAWING ARTIFACT OR DILUTION ERROR OF ANTICOAGULANT AT THE TIME OF SAMPLING. THE APTT SHOULD NOT BE USED TO MONITOR UNFRACTIONATED HEPARIN THERAPY, THIS LABORATORY NO LONGER HAS AN ESTABLISHED THERAPEUTIC RANGE BASED ON THE APTT. IT IS RECOMMENDED THAT THE [facility] - HEPARIN ASSAY (ANTI-XA ACTIVITY) BE USED FOR THIS PURPOSE. Performed By: #### 6 2586 #### [facility] [address] ARTERIAL BLOOD GAS WITH ICAo n 10-07-2019 BASE EXCESS 1 mmol/L Normal -2-3 The [facility] Comment on above: Performed By: #### 3 0477 #### [facility] [address] [place] [address], [facility] [employer] NASAL CANNULA Normal The [facility] Comment on above: Performed By: #### 3 0477 #### [facility] [address] [place] [address], [facility] HCO3 (Bld) [Moles/Vol] 25 mmol/L Normal 21-28 The [facility] Comment on above: Performed By: #### 3 0477 #### [facility] [address] [place] [address], [place] IONIZED CALCIUM 1.14 mmol/L Normal 1.13-1.[address] [facility] Comment on above: Performed By: #### 3 0477 #### [facility] [address] [place] [address], [place] LPM 4.0 LPM Normal [facility] Comment on above: Performed By: #### 3 0477 #### [facility] [address] [place] [address], [place] Oxygen (Bld) [Partial pressure] 80 mm[Hg] Low 83-108 The [facility] Comment on above: Performed By: #### 3 0477 #### [facility] [address] [place] [address], [place] Oxygen saturation in Blood 96.0 % Normal 94.0-97.0 [facility] Comment on above: Performed By: #### 3 0477 #### [facility] [address] [place] [address], [place] PCO2 40 mmHg Normal 35-45 [facility] Comment on above: Performed By: #### 3 0477 #### [facility] [address] [place] [address], [place] pH (Bld) 7.41 [pH] Normal 7.35-7.45 [facility] Comment on above: Performed By: #### 3 0477 #### [facility] [address] [place] [address], [place] BASIC METABOLIC PANELon 11 Calcium [Mass/Vol] 8.2 mg/dL Low 8.6-10.[address] [facility] Comment on above: Order Comment: post op day 1No: Do not add to previous draw Performed By: #### 6 2586 #### [facility] [address] [place] [address], [place] Chloride [Moles/Vol] 107 mmol/L Normal 98-107 [facility] Comment on above: Order Comment: post op day 1No: Do not add to previous draw Performed By: #### 6 2586 #### [facility] [address] [place] [address], [place] CO2 [Moles/Vol] 24 mmol/L Normal 21-31 The [facility] Comment on above: Order Comment: post op day 1No: Do not add to previous draw Performed By: #### 6 2586 #### [facility] [address] [place] [address], [place] Creatinine [Mass/Vol] 0.61 mg/dL Low 0.70-1.30 [facility] Comment on above: Order Comment: post op day 1No: Do not add to previous draw Performed By: #### 6 2586 #### [facility] [address] [place] [address], [place] GFR/1.73 sq M predicted among blacks MDRD (S/P/Bld) [Vol rate/Area] mL/min/{1.73_m2} Normal >60 [facility] Comment on above: Order Comment: post op day 1No: Do not add to previous draw Performed By: #### 6 2586 #### [facility] [address] [place] [address], [place] GFR/1.73 sq M predicted among non-blacks MDRD (S/P/Bld) [Vol rate/Area] mL/min/{1.73_m2} Normal >60 [facility] Comment on above: Order Comment: post op day 1No: Do not add to previous draw Performed By: #### 6 2586 #### [facility] [address] [place] [address], [place] Glucose [Mass/Vol] 125 mg/dL High 70-[address] [facility] Comment on above: Order Comment: post op day 1No: Do not add to previous draw Performed By: #### 6 2586 #### [facility] [address] [place] [address], [place] Potassium [Moles/Vol] 4.1 mmol/L Normal 3.5-5.1 [facility] Comment on above: Order Comment: post op day 1No: Do not add to previous draw Performed By: #### 6 2586 #### [facility] [address] [place] [address], [place] Sodium [Moles/Vol] 137 mmol/L Normal 136-145 The [facility] Comment on above: Order Comment: post op day 1No: Do not add to previous draw Performed By: #### 6 2586 #### [facility] [address] [place] [address], [place] Urea nitrogen [Mass/Vol] 11 mg/dL Normal 7-25 [facility] Comment on above: Order Comment: post op day 1No: Do not add to previous draw Performed By: #### 6 2586 #### [facility] [address] [place] [address], [place] CBC COMPLETE BLOOD COUNTon 12-07-2018 Erythrocyte distribution width (RBC) [Ratio] 12.3 % Normal 11.5-15.0 [facility] Comment on above: Order Comment: post op day 1No: Do not add to previous draw Performed By: #### 6 2586 #### [facility] [address] [place] [address], [place] Hematocrit (Bld) [Volume fraction] 27.3 % Low 39.0-50.0 [facility] Comment on above: Order Comment: post op day 1No: Do not add to previous draw Performed By: #### 6 2586 #### [facility] [address] [place] [address], [place] Hemoglobin (Bld) [Mass/Vol] 9.2 g/dL Low 13.0-17.0 [facility] Comment on above: Order Comment: post op day 1No: Do not add to previous draw Performed By: #### 6 2586 #### [facility] [address] [place] [address], [facility] IMM PLATELET FRAC 5.0 % Normal 0.8-6.3 The [facility] Comment on above: Order Comment: post op day 1No: Do not add to previous draw Performed By: #### 6 2586 #### [facility] [address] [place] [address], [facility] MCH (RBC) [Entitic mass] 30.8 pg Normal 27.0-33.0 [facility] Comment on above: Order Comment: post op day 1No: Do not add to previous draw Performed By: #### 6 2586 #### [facility] [address] [place] [id number], [facility] MCHC (RBC) [Mass/Vol] 33.7 g/dL Normal 32.0-35.0 [facility] Comment on above: Order Comment: post op day 1No: Do not add to previous draw Performed By: #### 6 2586 #### [facility] [address] [place] [id number], [facility] MCV (RBC) [Entitic vol] 91.3 fL Normal 82.0-98.0 [facility] Comment on above: Order Comment: post op day 1No: Do not add to previous draw Performed By: #### 6 2586 #### [facility] [address] [address], [facility] Nucleated RBC/100 WBC (Bld) [Ratio] 0 % Normal 0-0 [facility] Comment on above: Order Comment: post op day 1No: Do not add to previous draw Performed By: #### 6 2586 #### [facility] [address] [place] [id number], [facility] PLAT CNT 116 10*3/uL Low 150-400 The [facility] Comment on above: Order Comment: post op day 1No: Do not add to previous draw Performed By: #### 6 2586 #### [facility] [address] [place] [address], [facility] RBC (Bld) [#/Vol] 2.99 10*6/uL Low 4.20-5.70 The [facility] Comment on above: Order Comment: post op day 1No: Do not add to previous draw Performed By: #### 6 2586 #### [facility] [address] [place] [address], [facility] WBC (Bld) [#/Vol] 9.93 10*3/uL Normal 4.00-10.60 [facility] Comment on above: Order Comment: post op day 1No: Do not add to previous draw Performed By: #### 6 2586 #### [facility] [address] [place] [address], [facility] COOXIMETRYon 10-07-2019 COHB 2 % Normal [facility] Comment on above: Performed By: #### 3 0477 #### [facility] [address] [place] [address], [facility] METHB 1 % Normal [facility] Comment on above: Performed By: #### 3 0477 #### [facility] [address] [place] [address], [facility] Oxygen saturation in Blood 63.8 % Low 65.0-75.0 [facility] Comment on above: Performed By: #### 3 0477 #### [facility] [address] [place] [address], [facility] THB 9.2 g/dL Normal [facility] Comment on above: Performed By: #### 3 0477 #### [facility] [address] [place] [address], [facility] MAGNESIUM BLOODon 10-07-2019 Magnesium [Mass/Vol] 1.8 mg/dL Low 1.9-2.7 [facility] Comment on above: Order Comment: post op day 1No: Do not add to previous draw Performed By: #### 6 2586 #### [facility] [address] Operative Reporton 9 Operative Report MR#: [id number] I [facility] Pt. Name: Tyler Villegas Room #: [id number] Discharge Date: Birthdate: 1950 OPERATIVE REPORT DATE OF SURGERY: 10/06/2019 SURGEON: Joselo Raymundo MD PREOPERATIVE DIAGNOSIS: Left main coronary artery disease. POSTOPERATIVE DIAGNOSIS: Left main coronary artery disease. OPERATION: 1. Coronary artery bypass grafting x2 LOPEZ to LAD, saphenous vein graft to obtuse marginal 1 branch. 2. Exclusion of left atrial appendage with 35 mm AtriClip device. 3. Endoscopic vein harvesting of the left greater saphenous vein. 4. Extra complexity because of the addition of left atrial appendage exclusion because of episodic atrial fibrillation. ASSISTANTS: 1. Emma Gabriel PA-C. 2. Jono. ANESTHESIA: General with endotracheal intubation. ANESTHESIOLOGIST: Dr. Lara. CPB TIME: 78 min XCL TIME: 60 min INDICATIONS: This is a 69-year-old male, who was admitted yesterday after having failed a stress test and found to have a very tight left main coronary artery disease and aortic balloon pump was placed and the patient was urgently taken to the operating room. Intraoperative, the patient was noted to have an episode of atrial fibrillation. Therefore, exclusion of left atrial appendage was performed to decrease the risk of stroke. PROCEDURE IN DETAIL: The patient brought to the operating room and prepped and draped in the routine fashion. ANA LILIA was done, showed ventricular function about 50%. There was a little sluggishness of the anteroseptal wall. No significant valvular lesions were noted. Left greater saphenous vein was harvested endoscopically. The chest was entered through median sternotomy. Left internal mammary artery was harvested under direct vision using pedicle technique. The patient was heparinized. The internal mammary artery was divided and prepared for later use. Pericardium was opened and ascending aorta and right atrium were cannulated in the usual fashion. Antegrade cardioplegia catheter was placed in the ascending aorta. Cardiopulmonary bypass was initiated and cross-clamp was applied. Cold blood antegrade cardioplegia was given every 15-20 minutes or whenever myocardial temperature was 20 degrees. Lateral surface of the heart was exposed. Obtuse marginal 1 branch was identified. No other branches could be found and on the lateral wall, all the inferior wall, the posterior descending artery was miniscule even on cardiac catheterization. An arteriotomy was made and this was a 2.5 mm vessel. Vein graft anastomosed in end-to-side fashion using 7-0 Prolene running stitch. Upon completion of this anastomosis, the vein graft was anastomosed to the ascending aorta using 6-0 Prolene running stitch. Upon completion of this anastomosis, there was excellent flow through the graft. Then, attention was focused to the LAD. It was severely calcified in its entire portion except for a very small segment and the very distal 1/3 of the of its course where an arteriotomy was made. The LOPEZ was anastomosed in end-to-side fashion using 8-0 Prolene running stitch. Because of the atrial fibrillation, there was noted at the start of the case, left atrial appendage was excluded with a 35 mm AtriClip device deployed to the base of the appendage. Finally, the LOPEZ was anastomosed and down the LAD. Bulldog clamp was released. Blood flow was resumed through the graft. Cross-clamp was released. Aortic root vent was turned on. The patient was placed in a Trendelenburg position before removing the cross-clamp. Ventricular and atrial pacing wires were placed. AV pacing was begun at 60 beats per minute very soon thereafter. The patient's sinus rhythm was adequate and pacemaker was stopped. Ventilation was begun. Hemostasis was secured. Transit time flow measurements were done, which showed a pulsatility index of 2 to 3, and blood flow measuring 98 to 100 mL/minute in the vein graft and about 25 mL/minute in the LOPEZ to LAD. Intra-aortic balloon pump, which had been stopped after initiation of cardiopulmonary bypass was resumed. The patient was weaned off cardiopulmonary bypass. Venous cannula was removed. Protamine was given. Transit time flow measurements were repeated to confirm the patency of the graft after completion of protamine administration, aortic cannula was removed. Hemostasis was secured. Two chest tubes were placed in mediastinum and left chest. The right chest had also been opened and the tip of the mediastinal chest tube was positioned in the right chest. The chest was closed with the sternal cable, #1 Vicryl, 2-0 Vicryl and 4-0 Monocryl stitches. The patient tolerated the procedure well, was taken to the ICU in a stable, but critical condition. Electronically Signed by: Joselo Raymundo MD 10/17/2019 08:56 A Joselo Raymundo MD Date Dict: 10/06/2019/01:51 P/Joselo Raymundo MD Date Trans: 10/06/2019 11:42 P/jarrett [id number] Normal [facility] POC GLUCOSE LABon 10-07-2019 Glucose [Mass/Vol] 122 mg/dL High 70-100 The [facility] Comment on above: Performed By: #### 8 6002 #### [facility] [address] [place] [address], [place] Glucose [Mass/Vol] 120 mg/dL High 70-100 [facility] Comment on above: Performed By: #### 8 6002 #### [facility] [address] [place] [address], [place] Glucose [Mass/Vol] 129 mg/dL High 70-100 [facility] Comment on above: Performed By: #### 8 6002 #### [facility] [address] [place] [address], [place] Glucose [Mass/Vol] 80 mg/dL Normal 70-100 [facility] Comment on above: Performed By: #### 8 6002 #### [facility] [address] [place] [address], [place] Glucose [Mass/Vol] 105 mg/dL High 70-100 [facility] Comment on above: Performed By: #### 8 6002 #### [facility] [address] [place] [address], [place] Glucose [Mass/Vol] 102 mg/dL High 70-100 [facility] Comment on above: Performed By: #### 3 0477 #### [facility] [address] [place] [address], [place] Glucose [Mass/Vol] 125 mg/dL High 70-100 [facility] Comment on above: Performed By: #### 3 0477 #### [facility] [address] [place] [address], [place] Glucose [Mass/Vol] 124 mg/dL High 70-100 [facility] Comment on above: Performed By: #### 3 0477 #### [facility] [address] [place] [address], [place] Glucose [Mass/Vol] 137 mg/dL High 70-100 [facility] Comment on above: Performed By: #### 3 0477 #### [facility] [address] [place] [address], [place] Glucose [Mass/Vol] 130 mg/dL High 70-100 [facility] Comment on above: Performed By: #### 3 0477 #### [facility] [address] [place] [address], [place] Glucose [Mass/Vol] 136 mg/dL High 70-100 [facility] Comment on above: Performed By: #### 3 0477 #### [facility] [address] [place] [address], [place] Glucose [Mass/Vol] 115 mg/dL High 70-100 [facility] Comment on above: Performed By: #### 3 0477 #### [facility] [address] [place] [address], [place] Glucose [Mass/Vol] 116 mg/dL High 70-100 [facility] [place] [facility] Comment on above: Performed By: #### 3 0477 #### [facility] [address] [facility] [place] [address], [place] Glucose [Mass/Vol] 113 mg/dL High 70-100 [facility] Comment on above: Performed By: #### 6 2586 #### [facility] [address] [facility] [place] [address], [place] Glucose [Mass/Vol] 110 mg/dL High 70-100 [facility] Comment on above: Performed By: #### 6 2586 #### [facility] [address] [facility] [place] [address], [place] Glucose [Mass/Vol] 95 mg/dL Normal 70-100 [facility] Comment on above: Performed By: #### 6 2586 #### [facility] [address] [facility] [place] [address], [place] Glucose [Mass/Vol] 103 mg/dL High 70-100 [facility] Comment on above: Performed By: #### 6 2586 #### [facility] [address] [facility] [place] [address], [place] Glucose [Mass/Vol] 123 mg/dL High 70-100 [facility] Comment on above: Performed By: #### 6 2586 #### [facility] [address] [facility] [place] [address], [place] Glucose [Mass/Vol] 132 mg/dL High 70-100 [facility] Comment on above: Performed By: #### 4 6413, 80750, 03554, 32178 #### [facility] [address] [facility] [place] [address], [place] PORTABLE CHEST 1 VIEWon 09-23 PORTABLE CHEST 1 VIEW [facility] Department of Radiology [address] [place] [address] [id number] ======== Patient Name: TYLER VILLEGAS : 1950 Sex: M Age: Race: White Pt. Location: [id number] Patient Status: I Ordered Date: 10/07/2019 7:00:00 AM Completed Date: 10/07/2019 06:34 AM Requesting Provider: EMMA GABRIEL Attending Provider: TRENA QUINTANA Report Copy To: Signs & Symptoms: Post CABG History: See Comments Comments: Check Chest Tube Position Exam: PORTABLE CHEST 1 VIEW ======== PORTABLE CHEST 1 VIEW 10/07/2019 6:34 AM EST SIGNS AND SYMPTOMS: Post CABG TECHNOLOGIST COMMENTS: Post op CABG 10/06/19. Check chest tube positions per ordering physician. QUESTION FOR THE RADIOLOGIST: Check Chest Tube Position PROTOCOL: AP(PA) view was obtained. COMPARISON: 10/06/2019 FINDINGS: Trachea is midline cardiomediastinal silhouette is unchanged. Right [place]-Cy catheter in unchanged position. Pulmonary vascular congestion. No focal consolidation. Mediastinal chest tube in unchanged position. Left chest tube slightly repositioned at the left costophrenic sulcus. No pneumothorax or subdiaphragmatic free air. Atrial clip and sternotomy wires intact. IMPRESSION: * Left chest tube slightly repositioned at the left costophrenic sulcus. * Bibasilar airspace disease likely atelectasis versus pneumonia. * Pulmonary venous congestion and small left effusion. Approved by:Vikki Shepard on 10/07/2019 8:05 AM EST. I, Elissa Solis, have reviewed the images and report and concur with these findings. Electronically signed by:Elissa Solis. Transcribed by: [email or web address], User Resident: [email or web address] Electronically Signed by: ELISSA SOLIS @ 10/07/2019 09:43 PM I personally read this/these film(s) with this resident Normal [facility] Comment on above: Order Comment: Check Chest Tube Position PROTHROMBIN TIMEon 9 INR Coag (PPP) [Relative time] 1.31 {INR} High 0.91-1.16 [facility] Comment on above: Order Comment: post op day 1No: Do not add to previous draw Result Comment: ACCC P RECOMMENDED INR FOR WARFARIN THERAPY ------ ------- CONDITION INR PROPHYLAXIS OF VENOUS THROMBOSIS 2-3 (HIGH-RISK SURGERY) TREATMENT OF VENOUS THROMBOSIS 2-3 TREATMENT OF PULMONARY EMBOLISM 2-3 PREVENTION OF SYSTEMIC EMBOLISM: 2-3 ACUTE MYOCARDIAL INFARCTION TISSUE HEART VALVES VALVULAR HEART DISEASE ATRIAL FIBRILLATION RECURRENT SYSTEMIC EMBOLISM MECHANICAL HEART VALVE 2.5-3.5 FROM: ORAL ANTICOAGULANTS. MECHANISM OF ACTION, CLINICAL EFFECTIVENESS, AND OPTIMAL THERAPEUTIC RANGE. CHEST 1995;108:231S-246S. Performed By: #### 6 2586 #### [facility] [address] [facility]. [address] PT Coag (PPP) [Time] 16.4 s High 12.3-14.8 [facility] Comment on above: Order Comment: post op day 1No: Do not add to previous draw Result Comment: ALL RESULTS MUST BE INTERPRETED WITH RESPECT TO BLOOD DRAWING ARTIFACT OR DILUTION ERROR OF ANTICOAGULANT AT THE TIME OF SAMPLING. Performed By: #### 6 2586 #### [facility] [address] [place] [address], [place] ACTIVATED CLOTTING TIMEon ACTIVATED CLOTTING TIME 121 sec Normal 82-152 [facility] Comment on above: Performed By: #### 4 6413, 55993, 37367, 84640 #### [facility] [address] [place] [address], [place] ACTIVATED CLOTTING TIME 104 sec Normal 82-152 [facility] Comment on above: Performed By: #### 4 6413, 05501, 07482, 19254 #### [facility] [address] [place] [address], [place] ACTIVATED CLOTTING TIME 449 sec High 82-152 [facility] Comment on above: Performed By: #### 4 6413, 59487, 00109, 77149 #### [facility] [address] [place] [address], [place] ACTIVATED CLOTTING TIME 560 sec High 82-152 [facility] Comment on above: Performed By: #### 4 6413, 71228, 86394, 47095 #### [facility] [address] [place] [address], [place] ACTIVATED CLOTTING TIME 479 sec High 82-152 [facility] Comment on above: Performed By: #### 4 6413, 09535, 51496, 27012 #### [facility] [address] [place] [address], [place] ACTIVATED CLOTTING TIME 508 sec High 82-152 [facility] Comment on above: Performed By: #### 4 6413, 33111, 75141, 54961 #### [facility] [address] [place] [address], [place] ACTIVATED CLOTTING TIME 138 sec Normal 82-152 [facility] Comment on above: Performed By: #### 4 6413, 09454, 64019, 03575 #### [facility] [address] [place] APTTon 10-06-2019 aPTT Coag (Bld) [Time] 31.8 s Normal 25.0-35.0 [facility] Comment on above: Order Comment: Yes: Add to Previous draw if able Result Comment: ALL RESULTS MUST BE INTERPRETED WITH RESPECT TO BLOOD DRAWING ARTIFACT OR DILUTION ERROR OF ANTICOAGULANT AT THE TIME OF SAMPLING. THE APTT SHOULD NOT BE USED TO MONITOR UNFRACTIONATED HEPARIN THERAPY, THIS LABORATORY NO LONGER HAS AN ESTABLISHED THERAPEUTIC RANGE BASED ON THE APTT. IT IS RECOMMENDED THAT THE UFH - HEPARIN ASSAY (ANTI-XA ACTIVITY) BE USED FOR THIS PURPOSE. Performed By: #### 4 6413, 63258, 62299, 60517 #### [facility] [address] aPTT Coag (Bld) [Time] 28.8 s Normal 25.0-35.0 [facility] Comment on above: Result Comment: ALL RESULTS MUST BE INTERPRETED WITH RESPECT TO BLOOD DRAWING ARTIFACT OR DILUTION ERROR OF ANTICOAGULANT AT THE TIME OF SAMPLING. THE APTT SHOULD NOT BE USED TO MONITOR UNFRACTIONATED HEPARIN THERAPY, THIS LABORATORY NO LONGER HAS AN ESTABLISHED THERAPEUTIC RANGE BASED ON THE APTT. IT IS RECOMMENDED THAT THE UFH - HEPARIN ASSAY (ANTI-XA ACTIVITY) BE USED FOR THIS PURPOSE. Performed By: #### 4 6413, 73255, 52568, 28301 #### [facility] [address] [place] [address], [facility] ARTERIAL BLOOD GAS WITH ICAo n 10-06-2019 BASE EXCESS 0 mmol/L Normal -2-3 [facility] Comment on above: Performed By: #### 4 6413, 84782, 40030, 59013 #### [facility] [address] [place] [address], [facility] DELIVERY SYSTEMS MV Normal [facility] Comment on above: Performed By: #### 4 6413, 85369, 72628, 30137 #### [facility] [address] [place] [address], [facility] FIO2 40 % Normal [facility] Comment on above: Performed By: #### 4 6413, 03444, 54629, 42764 #### [facility] [address] [place] [address], [place] HCO3 (Bld) [Moles/Vol] 25 mmol/L Normal 21-28 [facility] Comment on above: Performed By: #### 4 6413, 98134, 40555, 45614 #### [facility] [address] [place] [address], [place] IONIZED CALCIUM 1.15 mmol/L Normal 1.13-1.32 The [facility] Comment on above: Performed By: #### 4 6413, 99150, 17253, 81090 #### [facility] [address] [place] [address], [place] MIN VOLUME 7.6 Normal [facility] Comment on above: Performed By: #### 4 6413, 77267, 60895, 95100 #### [facility] [address] [place] [address], [place] MODALITY CPAP Normal [facility] Comment on above: Performed By: #### 4 6413, 70477, 77327, 83817 #### [facility] [address] [place] [address], [place] Oxygen (Bld) [Partial pressure] 126 mm[Hg] Critically high 83-108 [facility] Comment on above: Performed By: #### 4 6413, 92069, 00937, 37624 #### [facility] [address] [place] [address], [place] Oxygen saturation in Blood 97.1 % High 94.0-97.0 [facility] Comment on above: Performed By: #### 4 6413, 94871, 70676, 28140 #### [facility] [address] [place] [address], [place] PCO2 42 mmHg Normal 35-45 [facility] Comment on above: Performed By: #### 4 6413, 90086, 90236, 78809 #### [facility] [address] [place] [address], [facility] PEEP 8.0 CMH20 Normal [facility] Comment on above: Performed By: #### 4 6413, 14590, 86809, 34586 #### [facility] [address] [place] [address], [facility] pH (Bld) 7.38 [pH] Normal 7.35-7.45 [facility] Comment on above: Performed By: #### 4 6413, 95443, 91132, 80827 #### [facility] [address] [place] [address], [facility] PRESSURE SUPPORT 5 Normal [facility] Comment on above: Performed By: #### 4 6413, 35816, 51128, 06653 #### [facility] [address] [place], [place] [address] [place] [address] BASE EXCESS -5 mmol/L Low -2-3 The [facility] Comment on above: Order Comment: No: D o not add to previous draw Performed By: #### 4 6413, 21913, 29619, 61198 #### [facility] [address] [place] [address], [facility] DELIVERY SYSTEMS MV Normal [facility] Comment on above: Order Comment: No: D o not add to previous draw Performed By: #### 4 6413, 75523, 70228, 40126 #### [facility] [address] [place] [address], [facility] FIO2 60 % Normal [facility] Comment on above: Order Comment: No: D o not add to previous draw Performed By: #### 4 6413, 13350, 94761, 99735 #### [facility] [address] [place] [address], [facility] HCO3 (Bld) [Moles/Vol] 23 mmol/L Normal 21-28 [facility] Comment on above: Order Comment: No: D o not add to previous draw Performed By: #### 4 6413, 51112, 15606, 66157 #### [facility] [address] [place] [address], [place] IONIZED CALCIUM 1.19 mmol/L Normal 1.13-1.32 [facility] Comment on above: Order Comment: No: D o not add to previous draw Performed By: #### 4 6413, 05687, 24728, 08940 #### [facility] [address] [place] [address], [place] MIN VOLUME 8.5 Normal [facility] Comment on above: Order Comment: No: D o not add to previous draw Performed By: #### 4 6413, 34768, 53157, 37570 #### [facility] [address] [place] [address], [place] MODALITY SIMV Normal [facility] Comment on above: Order Comment: No: D o not add to previous draw Performed By: #### 4 6413, 67786, 17964, 18606 #### [facility] [address] [place] [address], [place] Oxygen (Bld) [Partial pressure] 163 mm[Hg] Critically high 83-108 The [facility] Comment on above: Order Comment: No: D o not add to previous draw Performed By: #### 4 6413, 85136, 41942, 19157 #### [facility] [address] [place] [address], [place] Oxygen saturation in Blood 97.1 % High 94.0-97.0 [facility] Comment on above: Order Comment: No: D o not add to previous draw Performed By: #### 4 6413, 65397, 24798, 98380 #### [facility] [address] [place] [address], [place] PCO2 54 mmHg High 35-45 [facility] Comment on above: Order Comment: No: D o not add to previous draw Performed By: #### 4 6413, 20314, 77943, 18403 #### [facility] [address] [place] [address], [facility] PEEP 8.0 CMH20 Normal [facility] Comment on above: Order Comment: No: D o not add to previous draw Performed By: #### 4 6413, 76944, 53827, 63625 #### [facility] [address] [place] [address], [place] PF RATIO 271 mmHg Normal [facility] Comment on above: Order Comment: No: D o not add to previous draw Performed By: #### 4 6413, 35496, 70875, 16794 #### [facility] [address] [place] [address], [place] pH (Bld) 7.23 [pH] Critically low 7.35-7.45 The [facility] Comment on above: Order Comment: No: D o not add to previous draw Performed By: #### 4 6413, 77845, 44852, 44549 #### [facility] [address] [place] [address], [facility] PRESSURE SUPPORT 10 Normal [facility] Comment on above: Order Comment: No: D o not add to previous draw Performed By: #### 4 6413, 19512, 77040, 36156 #### [facility] [address] [place] [address], [place] TIDAL VOLUME (VT) CC 600 cc Normal [facility] Comment on above: Order Comment: No: D o not add to previous draw Performed By: #### 4 6413, 12275, 02140, 28871 #### [facility] [address] [place] [address], [place] BASIC METABOLIC PANELon 11-1 Calcium [Mass/Vol] 8.4 mg/dL Low 8.6-10.[address] [facility] Comment on above: Order Comment: Yes: Add to Previous draw if able Performed By: #### 4 6413, 78569, 91646, 81459 #### [facility] [address] [place] [address], [place] Chloride [Moles/Vol] 109 mmol/L High 98-107 [facility] Comment on above: Order Comment: Yes: Add to Previous draw if able Performed By: #### 4 6413, 82467, 60578, 85504 #### [facility] [facility] [address] [place] [address], [place] CO2 [Moles/Vol] 24 mmol/L Normal 21-31 The [facility] [place] Comment on above: Order Comment: Yes: Add to Previous draw if able Performed By: #### 4 6413, 72829, 57220, 17675 #### [facility] [address] [place] [address], [place] Creatinine [Mass/Vol] 0.72 mg/dL Normal 0.70-1.30 The [facility] Comment on above: Order Comment: Yes: Add to Previous draw if able Performed By: #### 4 6413, 22245, 50290, 93803 #### [facility] [address] [place] [address], [place] GFR/1.73 sq M predicted among blacks MDRD (S/P/Bld) [Vol rate/Area] mL/min/{1.73_m2} Normal >60 The [facility] Comment on above: Order Comment: Yes: Add to Previous draw if able Performed By: #### 4 6413, 57430, 53891, 89374 #### [facility] [address] [place] [address], [place] GFR/1.73 sq M predicted among non-blacks MDRD (S/P/Bld) [Vol rate/Area] mL/min/{1.73_m2} Normal >60 The [facility] Comment on above: Order Comment: Yes: Add to Previous draw if able Performed By: #### 4 6413, 56929, 73267, 69002 #### [facility] [address] [place] [address], [place] Glucose [Mass/Vol] 129 mg/dL High 70-100 The [facility] Comment on above: Order Comment: Yes: Add to Previous draw if able Performed By: #### 4 6413, 67963, 99344, 40001 #### [facility] [address] [place] [address], [place] Potassium [Moles/Vol] 4.2 mmol/L Normal 3.5-5.1 [facility] Comment on above: Order Comment: Yes: Add to Previous draw if able Performed By: #### 4 6413, 21199, 45566, 65313 #### [facility] [address] [place] [address], [place] Sodium [Moles/Vol] 140 mmol/L Normal 136-145 The [facility] Comment on above: Order Comment: Yes: Add to Previous draw if able Performed By: #### 4 6413, 18601, 97389, 45403 #### [facility] [address] [place] [address], [place] Urea nitrogen [Mass/Vol] 13 mg/dL Normal 7-25 The [facility] Comment on above: Order Comment: Yes: Add to Previous draw if able Performed By: #### 4 6413, 49613, 49242, 22426 #### [facility] [address] [place] [address], [place] Calcium [Mass/Vol] 8.5 mg/dL Low 8.6-10.3 The [facility] Comment on above: Performed By: #### 4 6413, 67190, 14873, 80372 #### [facility] [address] [place] [address], [place] Chloride [Moles/Vol] 110 mmol/L High 98-107 The [facility] Comment on above: Performed By: #### 4 6413, 77913, 61638, 09073 #### [facility] [address] [place] [address], [place] CO2 [Moles/Vol] 23 mmol/L Normal 21-31 [facility] Comment on above: Performed By: #### 4 6413, 56565, 93020, 50049 #### [facility] [address] [place] [address], [place] Creatinine [Mass/Vol] 0.83 mg/dL Normal 0.70-1.30 The [facility] Comment on above: Performed By: #### 4 6413, 62969, 54822, 73504 #### [facility] [address] [place] [address], [place] GFR/1.73 sq M predicted among blacks MDRD (S/P/Bld) [Vol rate/Area] mL/min/{1.73_m2} Normal >60 The [facility] Comment on above: Performed By: #### 4 6413, 45258, 87629, 13711 #### [facility] [address] [place] [address], [place] GFR/1.73 sq M predicted among non-blacks MDRD (S/P/Bld) [Vol rate/Area] mL/min/{1.73_m2} Normal >60 The [facility] Comment on above: Performed By: #### 4 6413, 11735, 39305, 29247 #### [facility] [address] [place] [address], [place] Glucose [Mass/Vol] 150 mg/dL High 70-[address] [facility] Comment on above: Performed By: #### 4 6413, 45434, 61343, 19742 #### [facility] [address] [place] [address], [place] Potassium [Moles/Vol] 4.7 mmol/L Normal 3.5-5.1 The [facility] Comment on above: Performed By: #### 4 6413, 96931, 99461, 08476 #### [facility] [address] [place] [address], [place] Sodium [Moles/Vol] 139 mmol/L Normal 136-145 The [facility] Comment on above: Performed By: #### 4 6413, 59810, 92056, 71263 #### [facility] [address] [place] [address], [place] Urea nitrogen [Mass/Vol] 16 mg/dL Normal 7-25 [facility] Comment on above: Performed By: #### 4 6413, 63211, 48939, 11840 #### [facility] [address] [place] [address], [place] CARDIAC MAGNESIUM BLOODon Magnesium [Mass/Vol] 2.0 mg/dL Normal 1.9-2.7 The [facility] Comment on above: Performed By: #### 4 6413, 77119, 09508, 94324 #### [facility] [address] [place] [address], [place] CBC COMPLETE BLOOD COUNTon 1 12-06-2018 Erythrocyte distribution width (RBC) [Ratio] 12.3 % Normal 11.5-15.0 The [facility] Comment on above: Order Comment: Yes: Add to Previous draw if able Performed By: #### 4 6413, 18605, 32277, 05070 #### [facility] [address] [place] [address], [place] Hematocrit (Bld) [Volume fraction] 28.2 % Low 39.0-50.0 The [facility] Comment on above: Order Comment: Yes: Add to Previous draw if able Performed By: #### 4 6413, 46051, 05777, 24439 #### [facility] [address] [place] [address], [place] Hemoglobin (Bld) [Mass/Vol] 9.6 g/dL Low 13.0-17.0 [facility] Comment on above: Order Comment: Yes: Add to Previous draw if able Performed By: #### 4 6413, 23771, 97930, 01188 #### [facility] [address] [place] [address], [facility] IMM PLATELET FRAC 4.9 % Normal 0.8-6.3 The [facility] Comment on above: Order Comment: Yes: Add to Previous draw if able Performed By: #### 4 6413, 90303, 04222, 06770 #### [facility] [address] [place] [id number], [facility] MCH (RBC) [Entitic mass] 30.9 pg Normal 27.0-33.0 The [facility] Comment on above: Order Comment: Yes: Add to Previous draw if able Performed By: #### 4 6413, 65232, 76820, 24647 #### [facility] [address] [place] [address], [facility] MCHC (RBC) [Mass/Vol] 34.0 g/dL Normal 32.0-35.0 The [facility] Comment on above: Order Comment: Yes: Add to Previous draw if able Performed By: #### 4 6413, 75833, 10790, 59180 #### [facility] [address] [place] [address], [facility] MCV (RBC) [Entitic vol] 90.7 fL Normal 82.0-98.0 The [facility] Comment on above: Order Comment: Yes: Add to Previous draw if able Performed By: #### 4 6413, 28004, 62737, 64414 #### [facility] [address] [place] [id number], [facility] Nucleated RBC/100 WBC (Bld) [Ratio] 0 % Normal 0-0 The [facility] Comment on above: Order Comment: Yes: Add to Previous draw if able Performed By: #### 4 6413, 01819, 98712, 85506 #### [facility] [address] [place] [address], [facility] PLAT CNT 124 10*3/uL Low 150-400 The [facility] Comment on above: Order Comment: Yes: Add to Previous draw if able Performed By: #### 4 6413, 02332, 96136, 26067 #### [facility] [address] [place] [address], [facility] RBC (Bld) [#/Vol] 3.11 10*6/uL Low 4.20-5.70 [facility] Comment on above: Order Comment: Yes: Add to Previous draw if able Performed By: #### 4 6413, 02279, 68127, 89826 #### [facility] [address] [place] [address], [facility] WBC (Bld) [#/Vol] 13.90 10*3/uL High 4.00-10.60 [facility] Comment on above: Order Comment: Yes: Add to Previous draw if able Performed By: #### 4 6413, 84594, 02793, 82952 #### [facility] [address] [place] [id number], [facility] Erythrocyte distribution width (RBC) [Ratio] 12.2 % Normal 11.5-15.0 [facility] Comment on above: Performed By: #### 4 6413, 49647, 20222, 96587 #### [facility] [address] [place] [address], [facility] Hematocrit (Bld) [Volume fraction] 31.3 % Low 39.0-50.0 The [facility] Comment on above: Performed By: #### 4 6413, 67519, 65979, 99061 #### [facility] [address] [place] [address], [facility] Hemoglobin (Bld) [Mass/Vol] 10.6 g/dL Low 13.0-17.0 The [facility] Comment on above: Performed By: #### 4 6413, 91744, 75245, 65067 #### [facility] [address] [place] [address], [facility] IMM PLATELET FRAC 5.2 % Normal 0.8-6.3 [facility] Comment on above: Performed By: #### 4 6413, 63971, 51983, 71258 #### [facility] [address] [place] [address], [facility] MCH (RBC) [Entitic mass] 30.7 pg Normal 27.0-33.0 The [facility] Comment on above: Performed By: #### 4 6413, 24211, 16448, 19645 #### [facility] [address] [facility]. [address] MCHC (RBC) [Mass/Vol] 33.9 g/dL Normal 32.0-35.0 [facility] Comment on above: Performed By: #### 4 6413, 36261, 23035, 71070 #### [facility] [address] [facility] [address], [facility] MCV (RBC) [Entitic vol] 90.7 fL Normal 82.0-98.0 [facility] Comment on above: Performed By: #### 4 6413, 38018, 41152, 25878 #### [facility] [address] [facility]. [address] Nucleated RBC/100 WBC (Bld) [Ratio] 0 % Normal 0-0 The [facility] Comment on above: Performed By: #### 4 6413, 53975, 57736, 22101 #### [facility] [address] [facility] [address], [facility] PLAT CNT 136 10*3/uL Low 150-400 The [facility] Comment on above: Performed By: #### 4 6413, 35272, 07758, 05771 #### [facility] [address] [facility] [address], [facility] RBC (Bld) [#/Vol] 3.45 10*6/uL Low 4.20-5.70 The [facility] Comment on above: Performed By: #### 4 6413, 01602, 31032, 22350 #### [facility] [address] [facility] [address], [facility] WBC (Bld) [#/Vol] 18.44 10*3/uL High 4.00-10.60 The [facility] Comment on above: Performed By: #### 4 6413, 89420, 26345, 00419 #### [facility] [address] [facility] [address], [facility] CBC W/DIFFon 10-06-2019 ABS BASOPHILS 0.0 10*3/uL Normal 0.0-0.2 The [facility] Comment on above: Order Comment: No: D o not add to previous draw Performed By: #### 0 0071 #### [facility] [address] [facility] [address] ABS IMM GRANS 0.1 10*3/uL Normal 0.0-0.2 The [facility] Comment on above: Order Comment: No: D o not add to previous draw Performed By: #### 0 0071 #### [facility] [address] [facility]. [address] ABS NEUTROPHILS 9.5 10*3/uL High 1.6-7.6 The [facility] Comment on above: Order Comment: No: D o not add to previous draw Performed By: #### 0 0071 #### [facility] [address] [facility] [place] [address], [facility] Basophils/100 WBC (Bld) 0.3 % Normal 0.0-1.0 The [facility] Comment on above: Order Comment: No: D o not add to previous draw Performed By: #### 0 0071 #### [facility] [address] [place] [address], [facility] Eosinophils (Bld) [#/Vol] 0.0 10*3/uL Normal 0.0-0.5 The [facility] Comment on above: Order Comment: No: D o not add to previous draw Performed By: #### 0 0071 #### [facility] [address] [place] [address], [facility] Eosinophils/100 WBC (Bld) 0.1 % Normal 0.0-6.0 The [facility] Comment on above: Order Comment: No: D o not add to previous draw Performed By: #### 0 0071 #### [facility] [address] [facility] [address], [facility] Erythrocyte distribution width (RBC) [Ratio] 12.1 % Normal 11.5-15.0 The [facility] Comment on above: Order Comment: No: D o not add to previous draw Performed By: #### 0 0071 #### [facility] [address] [place] [place] [address], [facility] Hematocrit (Bld) [Volume fraction] 40.9 % Normal 39.0-50.0 The [facility] Comment on above: Order Comment: No: D o not add to previous draw Performed By: #### 0 0071 #### [facility] [address] [facility] [address], [facility] Hemoglobin (Bld) [Mass/Vol] 13.9 g/dL Normal 13.0-17.0 The [facility] Comment on above: Order Comment: No: D o not add to previous draw Performed By: #### 0 0071 #### [facility] [address] [facility] [place] [address], [facility] IMMATURE GRANS 0.4 % Normal 0.0-1.0 The [facility] Comment on above: Order Comment: No: D o not add to previous draw Performed By: #### 0 0071 #### [facility] [address] Lymphocytes (Bld) [#/Vol] 1.3 10*3/uL Normal 1.2-4.0 The [facility] Comment on above: Order Comment: No: D o not add to previous draw Performed By: #### 0 0071 #### [facility] [address] [place] [address], [facility] Lymphocytes/100 WBC (Bld) 11.1 % Low 20.0-45.0 The [facility] Comment on above: Order Comment: No: D o not add to previous draw Performed By: #### 0 0071 #### [facility] [address] [place] [address], [facility] MCH (RBC) [Entitic mass] 30.4 pg Normal 27.0-33.0 The [facility] Comment on above: Order Comment: No: D o not add to previous draw Performed By: #### 0 0071 #### [facility] [address] [place] [address], [facility] MCHC (RBC) [Mass/Vol] 34.0 g/dL Normal 32.0-35.0 The [facility] Comment on above: Order Comment: No: D o not add to previous draw Performed By: #### 0 0071 #### [facility] [address] [place] [address], [facility] MCV (RBC) [Entitic vol] 89.5 fL Normal 82.0-98.0 The [facility] Comment on above: Order Comment: No: D o not add to previous draw Performed By: #### 0 0071 #### [facility] [address] [place] [address], [facility] Monocytes (Bld) [#/Vol] 0.6 10*3/uL Normal 0.1-1.0 The [facility] Comment on above: Order Comment: No: D o not add to previous draw Performed By: #### 0 0071 #### [facility] [address] [place] [address], [facility] MONOS 5.3 % Normal 5.0-12.0 The [facility] Comment on above: Order Comment: No: D o not add to previous draw Performed By: #### 0 0071 #### [facility] [address] [place] [address], [place] Neutrophils/100 WBC (Bld) 82.8 % High 40.0-72.0 The [facility] Comment on above: Order Comment: No: D o not add to previous draw Performed By: #### 0 0071 #### [facility] [address] [place] [address], [facility] Nucleated RBC/100 WBC (Bld) [Ratio] 0 % Normal 0-0 The [facility] Comment on above: Order Comment: No: D o not add to previous draw Performed By: #### 0 0071 #### [facility] [address] [place] [address], [place] PLAT CNT 187 10*3/uL Normal 150-400 The [facility] Comment on above: Order Comment: No: D o not add to previous draw Performed By: #### 0 0071 #### [facility] [address] [place] [id number], [facility] RBC (Bld) [#/Vol] 4.57 10*6/uL Normal 4.20-5.70 The [facility] Comment on above: Order Comment: No: D o not add to previous draw Performed By: #### 0 0071 #### [facility] [address] [place] [address], [place] WBC (Bld) [#/Vol] 11.50 10*3/uL High 4.00-10.60 The [facility] Comment on above: Order Comment: No: D o not add to previous draw Performed By: #### 0 0071 #### [facility] [address] [place] [address], [place] COMP METABOLIC PANELon 10-06 Albumin [Mass/Vol] 4.2 g/dL Normal 3.5-5.7 The [facility] Comment on above: Order Comment: No: D o not add to previous draw Performed By: #### 0 0071 #### [facility] [address] [place] [address], [place] ALKALINE PHOSPH 60 IU/L Normal 34-104 The [facility] [place] Comment on above: Order Comment: No: D o not add to previous draw Performed By: #### 0 0071 #### [facility] [address] [place] [address], [place] ALT [Catalytic activity/Vol] 22 U/L Normal 7-52 The [facility] Comment on above: Order Comment: No: D o not add to previous draw Performed By: #### 0 0071 #### [facility] [address] [place] [address], [place] AST [Catalytic activity/Vol] 19 U/L Normal 13-39 The [facility] Comment on above: Order Comment: No: D o not add to previous draw Performed By: #### 0 0071 #### [facility] [address] [place] [address], [place] Bilirubin [Mass/Vol] 0.6 mg/dL Normal 0.3-1.0 The [facility] Comment on above: Order Comment: No: D o not add to previous draw Performed By: #### 0 0071 #### [facility] [address] [place] [address], [place] Calcium [Mass/Vol] 9.4 mg/dL Normal 8.6-10.3 The [facility] Comment on above: Order Comment: No: D o not add to previous draw Performed By: #### 0 0071 #### [facility] [address] [place] [address], [place] Chloride [Moles/Vol] 101 mmol/L Normal 98-107 The [facility] Comment on above: Order Comment: No: D o not add to previous draw Performed By: #### 0 0071 #### [facility] [address] [place] [address], [place] CO2 [Moles/Vol] 25 mmol/L Normal 21-31 The [facility] [place] Comment on above: Order Comment: No: D o not add to previous draw Performed By: #### 0 0071 #### [facility] [address] [place] [address], [place] Creatinine [Mass/Vol] 0.92 mg/dL Normal 0.70-1.30 The [facility] Comment on above: Order Comment: No: D o not add to previous draw Performed By: #### 0 0071 #### [facility] [address] [place] [address], [place] GFR/1.73 sq M predicted among blacks MDRD (S/P/Bld) [Vol rate/Area] mL/min/{1.73_m2} Normal >60 The [facility] Comment on above: Order Comment: No: D o not add to previous draw Performed By: #### 0 0071 #### [facility] [address] [place] [address], [place] GFR/1.73 sq M predicted among non-blacks MDRD (S/P/Bld) [Vol rate/Area] mL/min/{1.73_m2} Normal >60 The [facility] Comment on above: Order Comment: No: D o not add to previous draw Performed By: #### 0 0071 #### [facility] [address] [place] [address], [place] Glucose [Mass/Vol] 192 mg/dL High 70-[address] [facility] Comment on above: Order Comment: No: D o not add to previous draw Performed By: #### 0 0071 #### [facility] [address] [place] [address], [place] Potassium [Moles/Vol] 4.2 mmol/L Normal 3.5-5.1 The [facility] Comment on above: Order Comment: No: D o not add to previous draw Performed By: #### 0 0071 #### [facility] [address] [place] [address], [place] Protein [Mass/Vol] 7.0 g/dL Normal 6.0-8.3 The [facility] Comment on above: Order Comment: No: D o not add to previous draw Performed By: #### 0 0071 #### [facility] [address] [place] [address], [place] Sodium [Moles/Vol] 136 mmol/L Normal 136-145 The [facility] Comment on above: Order Comment: No: D o not add to previous draw Performed By: #### 0 0071 #### [facility] [address] [place] [address], [facility] Urea nitrogen [Mass/Vol] 16 mg/dL Normal 7-25 The [facility] Comment on above: Order Comment: No: D o not add to previous draw Performed By: #### 0 0071 #### [facility] [address] [place] [id number], [facility] CPK-MB PROFILEon 10-06-2019 CK [Catalytic activity/Vol] 88 U/L Normal 30-223 The [facility] Comment on above: Performed By: #### 4 1313, 37455, 35594, 93614 #### [facility] [address] [place] [address], [place] CK.MB [Mass/Vol] 3.5 ng/mL Critically high 0.0-1.9 The [facility] Comment on above: Performed By: #### 4 8913, 96705, 47603, 41588 #### [facility] [address] [place] [address], [place] CK.MB [Mass/Vol] 3.1 ng/mL Normal 0.0-5.0 The [facility] Comment on above: Result Comment: IF T OTAL CK <200 U/L AND: 1. CKMB IS 5-10 NG/ML----BORDERLINE 2. CKMB IS >10 NG/ML----INDIC[place]IVE OF [place] OR IF TOTAL CK >200 U/L AND CKMB INDEX >1.9----[place] Performed By: #### 4 6413, 90856, 27450, 81136 #### [facility] [address] Cardiovascular Lab Reporton 10-06-2019 Cardiovascular Lab Report [facility] Patient Name: Bak[facility] MR #: [id number] Physician: Flavio Hooks, Department of M.D. Medicine Service Date: 10/05/2019 Division of Birthdate: 1950 Cardiology Room #: [id number] Adult Cardiovascular Services [facility] [facility] [address] [address] Cardiovascular Laboratory Report FINAL IMPRESSION: 1. Severe, calcific stenosis of the ostial and proximal left main coronary artery. 2. Severe disease of the left anterior descending coronary artery. 3. Severe disease of an obtuse marginal branch of the dominant left circumflex coronary artery. 4. Normal global left ventricular systolic function by noninvasive imaging. 5. Successful percutaneous placement of an intra-aortic balloon pump. RECOMMENDATIONS: 1. Routine precautions and management for intra-aortic balloon pump. 2. Consult Cardiothoracic Surgery for coronary artery bypass graft surgery. 3. Aggressive cardiovascular risk factor modification. 4. Optimization of medical management; aspirin, high-intensity statin therapy, beta-carolyn, +/- an angiotensin-converting enzyme inhibitor indicated. 5. The patient will be admitted to the Cardiology Service; further recommendations deferred to the inpatient services. PROCEDURES: Limited femoral angiography, bilateral selective coronary angiography, catheter placement in the abdominal aorta, abdominal aortography, percutaneous placement of an intra-aortic balloon pump. METHODS: After risks, benefits, and alternatives were explained, written informed consent was obtained. The patient was prepped and draped in usual sterile fashion over both groins. Using 1% lidocaine solution, local infiltration anesthesia was achieved. Using the modified Seldinger technique, access to the right common femoral artery was obtained utilizing the micropuncture kit. A 6-Czech 11 cm sheath was exchanged in without difficulty. Baseline femoral angiography was performed. Bilateral selective coronary angiography was performed using JL4 and JR4 catheters. After reviewing the images, it was elected to proceed with placement of an intra-aortic balloon pump given significant left main disease. A 6-Czech pigtail catheter was advanced and then positioned in the abdominal aorta. Abdominal aortography was performed using digital subtraction. After showing absence of aneurysmal or stenotic disease, the pigtail catheter was removed. The 6-Czech sheath was exchanged out for the balloon pump sheath. A 50 mL fiberoptic balloon pump was advanced in and positioned distal to the left subclavian and cranial to the renal arteries. The balloon pump was set on a one-to-one setting. It was secured in place. At this point, it was elected to conclude the procedure. Overall, the patient tolerated the procedure well. There were no overt complications. He was to be transferred to his hospital room in stable condition. FINDINGS: Hemodynamics: AO 138/84. LEFT VENTRICULOGRAPHY: This was not performed. Ejection fraction is normal by stress testing. CORONARY ARTERIES: Left main coronary artery. This arises from the left coronary cusp. It bifurcates into the left anterior descending and left circumflex coronary artery and shows an 85% to 90% ostial and proximal stenosis that is heavily calcified and eccentric in nature. There was pressure dampening on engagement. Left anterior descending coronary artery. This shows a 50% ostial stenosis, a mid segment 50% stenosis and a zus-ca-opzbrm 70% discrete stenosis. It is a wrap-around vessel supplying the inferoapex. There is diffuse plaque disease in the diagonal branches. Left circumflex coronary artery. This is a large dominant vessel giving rise to posterior descending and posterolateral branches. It gives rise to a large branching first obtuse marginal. The ostium of the upper branch shows a 60% to 70% stenosis. There is diffuse plaque distally. Right coronary artery. This is a small nondominant vessel. Abdominal aortography: This shows a single left renal artery and dual right renal arteries. There are brisk nephrograms bilaterally. There is no evidence of significant aneurysmal or stenotic segments. There is calcific plaque throughout the abdominal wall. Anatomy is suitable for a balloon pump. INDICATIONS: Angina, abnormal stress test. Electronically Signed by: Flavio Hooks M.D. 10/07/2019 02:50 P Flavio Hooks M.D. Date Dict: 10/05/2019/10:50 Elizabeth/Flavio Hooks M.D. Date Trans: 10/06/2019 09:07 A/jarrett [id number] Normal [facility] FIBRINOGENon 10-06-2019 FIBRINOGEN 199 mg/dL Normal 150-425 [facility] Comment on above: Performed By: #### 4 6413, 88920, 17216, 16802 #### [facility] [address] [place] [address], [facility] LACTATE BLOODon 10-06-2019 Lactate [Moles/Vol] 0.9 mmol/L Normal 0.5-2.2 [facility] Comment on above: Order Comment: Yes: Add to Previous draw if able Performed By: #### 4 6413, 35639, 21645, 83148 #### [facility] [address] [place] [address], [place] Lactate [Moles/Vol] 2.1 mmol/L Normal 0.5-2.2 [facility] Comment on above: Performed By: #### 4 6413, 23833, 08250, 88970 #### [facility] [address] [place] [address], [place] MAGNESIUM BLOODon 10-06-2019 Magnesium [Mass/Vol] 2.6 mg/dL Normal 1.9-2.7 [facility] Comment on above: Performed By: #### 4 6413, 94583, 49324, 95400 #### [facility] [address] [place] [address], [place] Magnesium [Mass/Vol] 1.6 mg/dL Low 1.9-2.7 [facility] Comment on above: Order Comment: No: D o not add to previous draw Performed By: #### 0 0071 #### [facility] [address] [place] [id number], [facility] MYOGLOBINon 10-06-2019 Myoglobin [Mass/Vol] 27 ng/mL Normal 0-90 [facility] Comment on above: Result Comment: A DO UBLING OF VALUES FROM SERIAL BLOOD COLLECTIONS (1 - 2 HOURS APART) IS MORE INDICATIVE OF A M.I. THAN THE ABSOLUTE VALUE. Performed By: #### 4 6413, 65947, 50279, 57717 #### [facility] [address] [place] [address], [facility] PERFUSION BLOOD PANELon 09-23 BASE EXCESS -4.0 mmol/L Low -2.0-3.0 [facility] Comment on above: Performed By: #### 4 6413, 81353, 05758, 07244 #### [facility] [address] [place] [address], [place] Glucose [Mass/Vol] 141 mg/dL High 70-[address] [facility] Comment on above: Performed By: #### 4 6413, 85822, 44774, 54555 #### [facility] [address] [place] [address], [place] Hematocrit (Bld) [Volume fraction] 30 % Low 38-51 [facility] Comment on above: Performed By: #### 4 6413, 69102, 45087, 78699 #### [facility] [address] [place] [address], [place] Hemoglobin (Bld) [Mass/Vol] 10.2 g/dL Low 12.0-17.0 [facility] Comment on above: Performed By: #### 4 6413, 06957, 30583, 98533 #### [facility] [address] [place] [address], [place] IONIZED CALCIUM 1.24 mmol/L Normal 1.12-1.[address] [facility] Comment on above: Performed By: #### 4 6413, 37534, 55918, 06886 #### [facility] [address] [place] [address], [place] Oxygen (Bld) [Partial pressure] 74.0 mm[Hg] Low 80.0-105.0 [facility] Comment on above: Performed By: #### 4 6413, 73951, 62676, 78250 #### [facility] [address] [place] [address], [place] PCO2 43.4 mmHg Normal 35.0-45.0 [facility] Comment on above: Performed By: #### 4 6413, 15739, 15829, 45869 #### [facility] [address] [place] [address], [place] pH (Bld) 7.31 [pH] Low 7.35-7.45 [facility] Comment on above: Performed By: #### 4 6413, 88602, 21456, 44778 #### [facility] [address] [place] [address], [place] Potassium [Moles/Vol] 4.1 mmol/L Normal 3.5-4.9 [facility] Comment on above: Performed By: #### 4 6413, 00696, 50023, 62994 #### [facility] [address] [place] [address], [place] Sodium [Moles/Vol] 143 mmol/L Normal 138-[address] [facility] Comment on above: Performed By: #### 4 6413, 48539, 06139, 84081 #### [facility] [address] [place] [address], [place] BASE EXCESS -1.0 mmol/L Normal -2.0-3.0 [facility] Comment on above: Performed By: #### 4 6413, 83454, 80581, 14120 #### [facility] [address] [place] [address], [place] Glucose [Mass/Vol] 157 mg/dL High 70-[address] [facility] Comment on above: Performed By: #### 4 6413, 37460, 37686, 83425 #### [facility] [address] [place] [address], [place] Hematocrit (Bld) [Volume fraction] 29 % Low 38-51 [facility] Comment on above: Performed By: #### 4 6413, 30279, 80965, 91358 #### [facility] [address] [place] [address], [facility] Hemoglobin (Bld) [Mass/Vol] 9.9 g/dL Low 12.0-17.0 [facility] Comment on above: Performed By: #### 4 6413, 67436, 94217, 18021 #### [facility] [address] [place] [address], [place] IONIZED CALCIUM 1.37 mmol/L High 1.12-1.[address] [facility] Comment on above: Performed By: #### 4 6413, 70798, 08302, 53774 #### [facility] [address] [place] [address], [place] Oxygen (Bld) [Partial pressure] 329.0 mm[Hg] High 80.0-105.0 [facility] Comment on above: Performed By: #### 4 6413, 67423, 51855, 03989 #### [facility] [address] [place] [address], [place] PCO2 45.4 mmHg High 35.0-45.0 [facility] Comment on above: Performed By: #### 4 6413, 10818, 00056, 17340 #### [facility] [address] [place] [address], [place] pH (Bld) 7.35 [pH] Normal 7.35-7.45 [facility] Comment on above: Performed By: #### 4 6413, 80556, 34645, 46239 #### [facility] [address] [place] [address], [place] Potassium [Moles/Vol] 4.8 mmol/L Normal 3.5-4.9 [facility] Comment on above: Performed By: #### 4 6413, 86224, 61255, 25577 #### [facility] [address] [place] [address], [place] Sodium [Moles/Vol] 140 mmol/L Normal 138-146 [facility] Comment on above: Performed By: #### 4 6413, 08741, 27264, 48379 #### [facility] [address] [place] [address], [place] BASE EXCESS -1.0 mmol/L Normal -2.0-3.0 [facility] Comment on above: Performed By: #### 4 6413, 33323, 78074, 37006 #### [facility] [address] [place] [address], [place] Glucose [Mass/Vol] 165 mg/dL High 70-105 [facility] Comment on above: Performed By: #### 4 6413, 46343, 21459, 61255 #### [facility] [address] [place] [address], [place] Hematocrit (Bld) [Volume fraction] 32 % Low 38-51 [facility] Comment on above: Performed By: #### 4 6413, 05594, 50942, 59377 #### [facility] [address] [place] [address], [place] Hemoglobin (Bld) [Mass/Vol] 10.9 g/dL Low 12.0-17.0 [facility] Comment on above: Performed By: #### 4 6413, 92045, 96616, 31393 #### [facility] [address] [place] [address], [place] IONIZED CALCIUM 1.14 mmol/L Normal 1.12-1.[address] [facility] Comment on above: Performed By: #### 4 6413, 45071, 74385, 45275 #### [facility] [address] [place] [address], [place] Oxygen (Bld) [Partial pressure] 165.0 mm[Hg] High 80.0-105.0 [facility] Comment on above: Performed By: #### 4 6413, 21542, 73152, 33279 #### [facility] [address] [place] [address], [place] PCO2 41.2 mmHg Normal 35.0-45.0 [facility] Comment on above: Performed By: #### 4 6413, 58536, 73000, 36050 #### [facility] [address] [place] [address], [place] pH (Bld) 7.38 [pH] Normal 7.35-7.45 [facility] Comment on above: Performed By: #### 4 6413, 56478, 64301, 68988 #### [facility] [address] [place] [address], [place] Potassium [Moles/Vol] 5.1 mmol/L High 3.5-4.9 [facility] Comment on above: Performed By: #### 4 6413, 47906, 42833, 26557 #### [facility] [address] [place] [address], [place] Sodium [Moles/Vol] 138 mmol/L Normal 138-[address] [facility] Comment on above: Performed By: #### 4 6413, 93106, 18837, 63648 #### [facility] [address] [place] [address], [place] BASE EXCESS 0.0 mmol/L Normal -2.0-3.0 [facility] Comment on above: Performed By: #### 4 6413, 00802, 22289, 30513 #### [facility] [address] [place] [address], [place] Glucose [Mass/Vol] 170 mg/dL High 70-[address] [facility] Comment on above: Performed By: #### 4 6413, 55487, 29589, 59836 #### [facility] [address] [place] [address], [place] Hematocrit (Bld) [Volume fraction] 31 % Low 38-51 [facility] Comment on above: Performed By: #### 4 6413, 55966, 86123, 18711 #### [facility] [address] [place] [address], [place] Hemoglobin (Bld) [Mass/Vol] 10.5 g/dL Low 12.0-17.0 [facility] Comment on above: Performed By: #### 4 6413, 81831, 32548, 82740 #### [facility] [address] [place] [address], [place] IONIZED CALCIUM 1.09 mmol/L Low 1.12-1.[address] [facility] Comment on above: Performed By: #### 4 6413, 61993, 02970, 71315 #### [facility] [address] [place] [address], [place] Oxygen (Bld) [Partial pressure] 231.0 mm[Hg] High 80.0-105.0 [facility] Comment on above: Performed By: #### 4 6413, 07777, 70717, 68836 #### [facility] [address] [place] [address], [place] PCO2 42.8 mmHg Normal 35.0-45.0 [facility] Comment on above: Performed By: #### 4 6413, 92315, 53894, 64735 #### [facility] [address] [place] [address], [facility] pH (Bld) 7.38 [pH] Normal 7.35-7.45 [facility] Comment on above: Performed By: #### 4 6413, 89439, 81895, 28352 #### [facility] [address] [place] [address], [place] Potassium [Moles/Vol] 4.9 mmol/L Normal 3.5-4.9 [facility] Comment on above: Performed By: #### 4 6413, 25121, 60066, 47485 #### [facility] [address] [place] [address], [place] Sodium [Moles/Vol] 137 mmol/L Low 138-146 [facility] Comment on above: Performed By: #### 4 6413, 32011, 64279, 76840 #### [facility] [address] [place] [address], [place] BASE EXCESS -2.0 mmol/L Normal -2.0-3.0 [facility] Comment on above: Performed By: #### 4 6413, 15969, 64037, 47864 #### [facility] [address] [place] [address], [place] Glucose [Mass/Vol] 189 mg/dL High 70-105 [facility] Comment on above: Performed By: #### 4 6413, 97325, 81429, 18879 #### [facility] [address] [place] [address], [place] Hematocrit (Bld) [Volume fraction] 36 % Low 38-51 [facility] Comment on above: Performed By: #### 4 6413, 58704, 26985, 98640 #### [facility] [address] [place] [address], [place] Hemoglobin (Bld) [Mass/Vol] 12.2 g/dL Normal 12.0-17.0 [facility] Comment on above: Performed By: #### 4 6413, 66236, 74426, 80171 #### [facility] [address] [place] [address], [place] IONIZED CALCIUM 1.20 mmol/L Normal 1.12-1.[address] [facility] Comment on above: Performed By: #### 4 6413, 72072, 00162, 25258 #### [facility] [address] [place] [address], [place] Oxygen (Bld) [Partial pressure] 107.0 mm[Hg] High 80.0-105.0 [facility] Comment on above: Performed By: #### 4 6413, 36099, 86185, 53841 #### [facility] [address] [place] [address], [place] PCO2 40.8 mmHg Normal 35.0-45.0 [facility] Comment on above: Performed By: #### 4 6413, 56791, 24174, 64259 #### [facility] [address] [place] [address], [place] pH (Bld) 7.37 [pH] Normal 7.35-7.45 [facility] Comment on above: Performed By: #### 4 6413, 00817, 85120, 98845 #### [facility] [address] [place] [address], [place] Potassium [Moles/Vol] 4.1 mmol/L Normal 3.5-4.9 [facility] Comment on above: Performed By: #### 4 6413, 12897, 40899, 64733 #### [facility] [address] [place] [address], [place] Sodium [Moles/Vol] 139 mmol/L Normal 138-[address] [facility] Comment on above: Performed By: #### 4 6413, 12518, 68016, 90235 #### [facility] [address] [place] [address], [facility] BASE EXCESS 1.0 mmol/L Normal -2.0-3.0 [facility] Comment on above: Performed By: #### 4 6413, 87088, 54559, 36779 #### [facility] [address] [place] [address], [place] Glucose [Mass/Vol] 227 mg/dL High 70-[address] [facility] Comment on above: Performed By: #### 4 6413, 89010, 66598, 28611 #### [facility] [address] [place] [address], [place] Hematocrit (Bld) [Volume fraction] 42 % Normal 38-51 [facility] Comment on above: Performed By: #### 4 6413, 79213, 00755, 46127 #### [facility] [address] [place] [address], [place] Hemoglobin (Bld) [Mass/Vol] 14.3 g/dL Normal 12.0-17.0 [facility] Comment on above: Performed By: #### 4 6413, 00641, 80279, 86448 #### [facility] [address] [place] [address], [place] IONIZED CALCIUM 1.22 mmol/L Normal 1.12-1.[address] [facility] Comment on above: Performed By: #### 4 6413, 11765, 34878, 97339 #### [facility] [address] [place] [address], [place] Oxygen (Bld) [Partial pressure] 453.0 mm[Hg] High 80.0-105.0 [facility] Comment on above: Performed By: #### 4 6413, 52811, 46947, 82774 #### [facility] [address] [place] [address], [place] PCO2 42.8 mmHg Normal 35.0-45.0 [facility] Comment on above: Performed By: #### 4 6413, 51602, 74925, 38764 #### [facility] [address] [place] [address], [place] pH (Bld) 7.40 [pH] Normal 7.35-7.45 [facility] Comment on above: Performed By: #### 4 6413, 81223, 18129, 94438 #### [facility] [address] [place] [address], [place] Potassium [Moles/Vol] 3.9 mmol/L Normal 3.5-4.9 [facility] Comment on above: Performed By: #### 4 6413, 69707, 00591, 61850 #### [facility] [address] [place] [address], [place] Sodium [Moles/Vol] 137 mmol/L Low 138-146 [facility] Comment on above: Performed By: #### 4 6413, 51114, 31518, 57924 #### [facility] [address] [place] [address], [place] PHOSPHORUS BLOODon 9 Phosphate [Mass/Vol] 3.6 mg/dL Normal 2.5-5.0 [facility] Comment on above: Order Comment: No: D o not add to previous draw Performed By: #### 0 0071 #### [facility] [address] [place] [address], [place] POC GLUCOSE LABon 10-06-2019 Glucose [Mass/Vol] 129 mg/dL High 70-100 [facility] Comment on above: Performed By: #### 4 6413, 03806, 95201, 34258 #### [facility] [address] [place] [address], [place] Glucose [Mass/Vol] 125 mg/dL High 70-100 [facility] Comment on above: Performed By: #### 4 6413, 37194, 79762, 10498 #### [facility] [address] [place] [address], [place] Glucose [Mass/Vol] 113 mg/dL High 70-100 [facility] Comment on above: Performed By: #### 4 6413, 49138, 07171, 30460 #### [facility] [address] [place] [address], [place] Glucose [Mass/Vol] 109 mg/dL High 70-100 [facility] Comment on above: Performed By: #### 4 6413, 53233, 70908, 06998 #### [facility] [address] [place] [address], [place] Glucose [Mass/Vol] 159 mg/dL High 70-100 [facility] Comment on above: Performed By: #### 4 6413, 31556, 93848, 30104 #### [facility] [address] [facility] [place] [address], [place] Glucose [Mass/Vol] 199 mg/dL High 70-100 [facility] Comment on above: Performed By: #### 4 6413, 13726, 36461, 79154 #### [facility] [address] [facility] [place] [address], [facility] PORTABLE CHEST 1 VIEWon 09-23 PORTABLE CHEST 1 VIEW [facility] Department of Radiology [address] [place] [address] ======== Patient Name: TYLER VILLEGAS : 1950 Sex: M Age: Race: White Pt. Location: [id number] Patient Status: I Ordered Date: 10/06/2019 1:35:00 PM Completed Date: 10/06/2019 02:22 PM Requesting Provider: EMMA GABRIEL Attending Provider: TRENA QUINTANA Report Copy To: Signs & Symptoms: Post CABG History: See Comments Comments: Check Chest Tube Position, ON ARRIVAL TO CVU Exam: PORTABLE CHEST 1 VIEW ======== PORTABLE CHEST 1 VIEW 10/06/2019 2:22 PM EST SIGNS AND SYMPTOMS: Post CABG TECHNOLOGIST COMMENTS: post cabg check chest tube position QUESTION FOR THE RADIOLOGIST: Check Chest Tube Position, ON ARRIVAL TO CVU PROTOCOL: AP(PA) view was obtained. COMPARISON: 10/06/2019 FINDINGS: ET tube and right IJ Redlake-Cy catheter in satisfactory position. Chest tube overlies mediastinum and left lung base. Left atrial appendage clip is identified. Cardiomediastinal silhouette is within normal limits. The lungs and costophrenic sulci are clear. No pneumothorax.Sternotom y wires are identified. IMPRESSION: Right-sided Redlake-Cy catheter, ET tube are in satisfactory position. Left atrial appendage clip is identified. Mediastinal and left lung base chest tubes. No acute process. Intra-aortic balloon pump is no longer identified. Approved by:Silas Bundy on 10/06/2019 2:31 PM EST. I, Elissa Solis, have reviewed the images and report and concur with these findings. Electronically signed by:Elissa Solis. Transcribed by: [email or web address], User Resident: SILAS [email or web address] Electronically Signed by: ELISSA SOLIS @ 10/06/2019 10:48 PM I personally read this/these film(s) with this resident Normal [facility] Comment on above: Order Comment: Yes: Add to Previous draw if able PORTABLE CHEST 1 VIEW [facility] Department of Radiology [address] [place] [address] ======== Patient Name: TYLER VILLEGAS : 1950 Sex: M Age: Race: White Pt. Location: [place] [address] Patient Status: I Ordered Date: 10/06/2019 5:40:00 AM Completed Date: 10/06/2019 06:26 AM Requesting Provider: SANDOR VEGA Attending Provider: TRENA QUINTANA Report Copy To: Signs & Symptoms: CABG History: See Comments Comments: R/O Lesion Exam: PORTABLE CHEST 1 VIEW ======== PORTABLE CHEST 1 VIEW 10/06/2019 6:26 AM EST SIGNS AND SYMPTOMS: CABG TECHNOLOGIST COMMENTS: pre-op CABG hx diabetic, balloon pump QUESTION FOR THE RADIOLOGIST: R/O Lesion PROTOCOL: AP(PA) view was obtained. COMPARISON: None FINDINGS: The trachea is midline. Cardiac mediastinal silhouette is within normal limits. No pleural effusion, pneumothorax or subdiaphragmatic free air. Right hilar fullness may represent overlapping pulmonary vasculature. Marker for aortic balloon pump projects just inferior to the aortic arch. IMPRESSION: No acute cardiopulmonary abnormality. Aortic balloon pump in position. Approved by:Elzbieta Ruby on 10/06/2019 6:30 AM EST. I, Leonel Daigle, have reviewed the images and report and concur with these findings. Electronically signed by:Leonel Daigle. Transcribed by: [email or web address], User Resident: ELZBIETA MOLINA Electronically Signed by: LEONEL DAIGLE @ 10/06/2019 07:04 AM I personally read this/these film(s) with this resident Normal [facility] Comment on above: Order Comment: R/O L esion PROTHROMBIN TIMEon 9 INR Coag (PPP) [Relative time] 1.33 {INR} High 0.91-1.16 [facility] Comment on above: Order Comment: Yes: Add to Previous draw if able Result Comment: [facility] P RECOMMENDED INR FOR WARFARIN THERAPY ------ ------- CONDITION INR PROPHYLAXIS OF VENOUS THROMBOSIS 2-3 (HIGH-RISK SURGERY) TREATMENT OF VENOUS THROMBOSIS 2-3 TREATMENT OF PULMONARY EMBOLISM 2-3 PREVENTION OF SYSTEMIC EMBOLISM: 2-3 ACUTE MYOCARDIAL INFARCTION TISSUE HEART VALVES VALVULAR HEART DISEASE ATRIAL FIBRILLATION RECURRENT SYSTEMIC EMBOLISM MECHANICAL HEART VALVE 2.5-3.5 FROM: ORAL ANTICOAGULANTS. MECHANISM OF ACTION, CLINICAL EFFECTIVENESS, AND OPTIMAL THERAPEUTIC RANGE. CHEST 1995;108:231S-246S. Performed By: #### 4 6413, 08379, 80316, 49592 #### [facility] [address] PT Coag (PPP) [Time] 16.6 s High 12.3-14.8 [facility] Comment on above: Order Comment: Yes: Add to Previous draw if able Result Comment: ALL RESULTS MUST BE INTERPRETED WITH RESPECT TO BLOOD DRAWING ARTIFACT OR DILUTION ERROR OF ANTICOAGULANT AT THE TIME OF SAMPLING. Performed By: #### 4 6413, 57962, 62403, 60805 #### [facility] [address] [place] [address], [facility] INR Coag (PPP) [Relative time] 1.30 {INR} High 0.91-1.16 [facility] Comment on above: Result Comment: [facility] P RECOMMENDED INR FOR WARFARIN THERAPY ------ ------- CONDITION INR PROPHYLAXIS OF VENOUS THROMBOSIS 2-3 (HIGH-RISK SURGERY) TREATMENT OF VENOUS THROMBOSIS 2-3 TREATMENT OF PULMONARY EMBOLISM 2-3 PREVENTION OF SYSTEMIC EMBOLISM: 2-3 ACUTE MYOCARDIAL INFARCTION TISSUE HEART VALVES VALVULAR HEART DISEASE ATRIAL FIBRILLATION RECURRENT SYSTEMIC EMBOLISM MECHANICAL HEART VALVE 2.5-3.5 FROM: ORAL ANTICOAGULANTS. MECHANISM OF ACTION, CLINICAL EFFECTIVENESS, AND OPTIMAL THERAPEUTIC RANGE. CHEST 1995;108:231S-246S. Performed By: #### 4 8313, 87434, 98945, 08324 #### [facility] [address] [facility] [place] [address], [facility] PT Coag (PPP) [Time] 16.3 s High 12.3-14.8 [facility] Comment on above: Result Comment: ALL RESULTS MUST BE INTERPRETED WITH RESPECT TO BLOOD DRAWING ARTIFACT OR DILUTION ERROR OF ANTICOAGULANT AT THE TIME OF SAMPLING. Performed By: #### 4 6913, 70615, 49595, 76419 #### [facility] [address] [place] [address], [facility] INR Coag (PPP) [Relative time] 1.11 {INR} Normal 0.91-1.16 [facility] Comment on above: Result Comment: [facility] P RECOMMENDED INR FOR WARFARIN THERAPY ------ ------- CONDITION INR PROPHYLAXIS OF VENOUS THROMBOSIS 2-3 (HIGH-RISK SURGERY) TREATMENT OF VENOUS THROMBOSIS 2-3 TREATMENT OF PULMONARY EMBOLISM 2-3 PREVENTION OF SYSTEMIC EMBOLISM: 2-3 ACUTE MYOCARDIAL INFARCTION TISSUE HEART VALVES VALVULAR HEART DISEASE ATRIAL FIBRILLATION RECURRENT SYSTEMIC EMBOLISM MECHANICAL HEART VALVE 2.5-3.5 FROM: ORAL ANTICOAGULANTS. MECHANISM OF ACTION, CLINICAL EFFECTIVENESS, AND OPTIMAL THERAPEUTIC RANGE. CHEST 1995;108:231S-246S. Performed By: #### 0 0071 #### [facility] [address] [facility]. [address] PT Coag (PPP) [Time] 14.3 s Normal 12.3-14.8 [facility] Comment on above: Result Comment: ALL RESULTS MUST BE INTERPRETED WITH RESPECT TO BLOOD DRAWING ARTIFACT OR DILUTION ERROR OF ANTICOAGULANT AT THE TIME OF SAMPLING. Performed By: #### 0 0071 #### [facility] [address] TROPONIN-Ion 10-06-2019 Troponin I.cardiac [Mass/Vol] 0.00 ng/mL Normal 0.00-0.04 [facility] Comment on above: Result Comment: REFE RENCE RANGES: 0.00 - 0.14 ng/ml NEGATIVE 0.15 - 0.25 ng/ml INDETERMINATE > 0.25 ng/ml INDICATIVE OF AN M.I. Performed By: #### 4 9613, 50733, 92472, 47248 #### [facility] [address] UFH HEPARIN ASSAYon 10-06-20 19 UNFRACTIONATED HEPARIN 0.33 IU/mL Normal 0.30-0.70 [facility] Comment on above: Result Comment: Chioma roxaban and Apixaban will interfere with the anti Xa assay used to monitor UFH and LMWH. Performed By: #### 0 0071 #### [facility] [address] UNFRACTIONATED HEPARIN 0.23 IU/mL Low 0.30-0.70 [facility] Comment on above: Result Comment: Chioma roxaban and Apixaban will interfere with the anti Xa assay used to monitor UFH and LMWH. Performed By: #### 0 0071 #### [facility] [address] [facility]. [address] APTTon 10-05-2019 aPTT Coag (Bld) [Time] 41.6 s High 25.0-35.0 [facility] Comment on above: Result Comment: ALL RESULTS MUST BE INTERPRETED WITH RESPECT TO BLOOD DRAWING ARTIFACT OR DILUTION ERROR OF ANTICOAGULANT AT THE TIME OF SAMPLING. THE APTT SHOULD NOT BE USED TO MONITOR UNFRACTIONATED HEPARIN THERAPY, THIS LABORATORY NO LONGER HAS AN ESTABLISHED THERAPEUTIC RANGE BASED ON THE APTT. IT IS RECOMMENDED THAT THE UFH - HEPARIN ASSAY (ANTI-XA ACTIVITY) BE USED FOR THIS PURPOSE. Performed By: #### 0 0071 #### [facility] [address] BASIC METABOLIC PANELon 09-23 Calcium [Mass/Vol] 9.6 mg/dL Normal 8.6-10.[address] [facility] Comment on above: Performed By: #### 0 0071 #### [facility] [address] [place] [address], [facility] Chloride [Moles/Vol] 99 mmol/L Normal 98-107 [facility] Comment on above: Performed By: #### 0 0071 #### [facility] [address] [place] [address], [facility] CO2 [Moles/Vol] 28 mmol/L Normal 21-31 [facility] Comment on above: Performed By: #### 0 0071 #### [facility] [address] [place] [address], [place] Creatinine [Mass/Vol] 0.88 mg/dL Normal 0.70-1.30 [facility] Comment on above: Performed By: #### 0 0071 #### [facility] [address] [place] [address], [place] GFR/1.73 sq M predicted among blacks MDRD (S/P/Bld) [Vol rate/Area] mL/min/{1.73_m2} Normal >60 [facility] Comment on above: Performed By: #### 0 0071 #### [facility] [address] [place] [address], [place] GFR/1.73 sq M predicted among non-blacks MDRD (S/P/Bld) [Vol rate/Area] mL/min/{1.73_m2} Normal >60 [facility] Comment on above: Performed By: #### 0 0071 #### [facility] [address] [place] [address], [place] Glucose [Mass/Vol] 170 mg/dL High 70-100 [facility] Comment on above: Performed By: #### 0 0071 #### [facility] [address] [place] [address], [place] Potassium [Moles/Vol] 3.7 mmol/L Normal 3.5-5.1 [facility] Comment on above: Performed By: #### 0 0071 #### [facility] [address] [place] [address], [place] Sodium [Moles/Vol] 138 mmol/L Normal 136-145 [facility] Comment on above: Performed By: #### 0 0071 #### [facility] [address] [place] [address], [place] Urea nitrogen [Mass/Vol] 15 mg/dL Normal 7-25 [facility] Comment on above: Performed By: #### 0 0071 #### [facility] [address] CBC COMPLETE BLOOD COUNTon 12-05-2018 Erythrocyte distribution width (RBC) [Ratio] 12.1 % Normal 11.5-15.0 [facility] Comment on above: Performed By: #### 5 0608 #### [facility] [address] [place] [place] [address], [facility] Hematocrit (Bld) [Volume fraction] 46.7 % Normal 39.0-50.0 [facility] Comment on above: Performed By: #### 5 0608 #### [facility] [address] [facility] [address], [facility] Hemoglobin (Bld) [Mass/Vol] 16.1 g/dL Normal 13.0-17.0 [facility] Comment on above: Performed By: #### 5 0608 #### [facility] [address] [facility] [address], [facility] MCH (RBC) [Entitic mass] 30.7 pg Normal 27.0-33.0 [facility] Comment on above: Performed By: #### 5 0608 #### [facility] [address] [place] [place] [address], [facility] MCHC (RBC) [Mass/Vol] 34.5 g/dL Normal 32.0-35.0 [facility] Comment on above: Performed By: #### 5 0608 #### [facility] [address] [place] [place] [address], [facility] MCV (RBC) [Entitic vol] 89.1 fL Normal 82.0-98.0 [facility] Comment on above: Performed By: #### 5 0608 #### [facility] [address] [place] [id number], [facility] Nucleated RBC/100 WBC (Bld) [Ratio] 0 % Normal 0-0 [facility] Comment on above: Performed By: #### 5 0608 #### [facility] [address] [place] [address], [facility] PLAT CNT 239 10*3/uL Normal 150-400 [facility] Comment on above: Performed By: #### 5 0608 #### [facility] [address] [place] [address], [facility] RBC (Bld) [#/Vol] 5.24 10*6/uL Normal 4.20-5.70 [facility] Comment on above: Performed By: #### 5 0608 #### [facility] [address] [facility] [address], [facility] WBC (Bld) [#/Vol] 8.90 10*3/uL Normal 4.00-10.60 [facility] Comment on above: Performed By: #### 5 0608 #### [facility] [address] [facility] [address] HEMOGLOBIN A1Con 10-05-2019 HbA1c (Bld) [Mass fraction] 6.6 % High 4.0-6.0 [facility] Comment on above: Order Comment: Yes: Add to Previous draw if able Performed By: #### 0 0071 #### [facility] [address] [facility] [address] HbA1c (Bld) [Mass fraction] 143 mg/dL High 70-126 [facility] Comment on above: Order Comment: Yes: Add to Previous draw if able Performed By: #### 0 0071 #### [facility] [address] [facility]. [address] LIPID PROFILEon 10-05-2019 Cholesterol [Mass/Vol] 170 mg/dL Normal 120-200 [facility] Comment on above: Order Comment: Yes: Add to Previous draw if able Result Comment: CHOL ESTEROL REFERENCE RANGE: 20 YEARS AND OLDER CARDIOVASCULAR RISK Less than 200 mg/dl Low Risk 200 to 239 mg/dl Borderline Risk 240 mg/dl and greater High Risk Performed By: #### 4 6413, 18785, 14115, 62885 #### [facility] [address] [place] [address], [place] Cholesterol in HDL [Mass/Vol] 45 mg/dL Normal 23-92 [facility] Comment on above: Order Comment: Yes: Add to Previous draw if able Result Comment: Slig ht variation in normal range could be due to gender and/or age. HDL CHOLESTEROL REFERENCE RANGE: 20 years and older Cardiovascular Risk > or =60 mg/dL Desirable 40 TO 59 mg/dL Low Risk <40 mg/dL High Risk Performed By: #### 4 6413, 99485, 77748, 75694 #### [facility] [address] [place] [address], [place] Cholesterol in LDL [Mass/Vol] 107 mg/dL Normal 0-130 [facility] Comment on above: Order Comment: Yes: Add to Previous draw if able Result Comment: LDL IS A CALCULATION LDL IS ONLY VALID IF THE TRIG IS LESS THAN 400. Performed By: #### 4 6413, 16185, 56841, 67431 #### [facility] [address] [place] [address], [place] Cholesterol.total/C holesterol in HDL [Mass ratio] 3.8 {ratio} Normal 0.0-4.5 [facility] Comment on above: Order Comment: Yes: Add to Previous draw if able Performed By: #### 4 6413, 02621, 67298, 54326 #### [facility] [address] [place] [address], [place] NON-HDL CHOLESTEROL 125 mg/dL Normal The [facility] Comment on above: Order Comment: Yes: Add to Previous draw if able Performed By: #### 4 6413, 37324, 73524, 66569 #### [facility] [address] [place] [address], [place] Triglyceride [Mass/Vol] 92 mg/dL Normal 40-149 [facility] Comment on above: Order Comment: Yes: Add to Previous draw if able Result Comment: TRIG LYCERIDE REFERENCE RANGE: 20 YEARS AND OLDER CARDIOVASCULAR RISK LESS THAN 150 mg/dl LOW RISK 150 TO 199 mg/dl BORDERLINE RISK 200 mg/dl AND GREATER HIGH RISK Performed By: #### 4 6413, 77433, 99162, 93894 #### [facility] [address] VLDL CHOL 18 mg/dL Normal 0-40 [facility] Comment on above: Order Comment: Yes: Add to Previous draw if able Performed By: #### 4 6413, 54255, 77867, 55209 #### [facility] [address] MAGNESIUM BLOODon 10-05-2019 Magnesium [Mass/Vol] 1.8 mg/dL Low 1.9-2.7 [facility] Comment on above: Order Comment: No: D o not add to previous draw Performed By: #### 4 6413, 61755, 64825, 46671 #### [facility] [address] [place] [address], [facility] PHOSPHORUS BLOODon 9 Phosphate [Mass/Vol] 3.5 mg/dL Normal 2.5-5.0 [facility] Comment on above: Order Comment: No: D o not add to previous draw Performed By: #### 4 6413, 88393, 71414, 54045 #### [facility] [address] PROTHROMBIN TIMEon 9 INR Coag (PPP) [Relative time] 1.06 {INR} Normal 0.91-1.16 [facility] Comment on above: Result Comment: [facility] P RECOMMENDED INR FOR WARFARIN THERAPY ------ ------- CONDITION INR PROPHYLAXIS OF VENOUS THROMBOSIS 2-3 (HIGH-RISK SURGERY) TREATMENT OF VENOUS THROMBOSIS 2-3 TREATMENT OF PULMONARY EMBOLISM 2-3 PREVENTION OF SYSTEMIC EMBOLISM: 2-3 ACUTE MYOCARDIAL INFARCTION TISSUE HEART VALVES VALVULAR HEART DISEASE ATRIAL FIBRILLATION RECURRENT SYSTEMIC EMBOLISM MECHANICAL HEART VALVE 2.5-3.5 FROM: ORAL ANTICOAGULANTS. MECHANISM OF ACTION, CLINICAL EFFECTIVENESS, AND OPTIMAL THERAPEUTIC RANGE. CHEST 1995;108:231S-246S. Performed By: #### 5 6101, 11252 #### [facility] [address] PT Coag (PPP) [Time] 13.8 s Normal 12.3-14.8 [facility] Comment on above: Result Comment: ALL RESULTS MUST BE INTERPRETED WITH RESPECT TO BLOOD DRAWING ARTIFACT OR DILUTION ERROR OF ANTICOAGULANT AT THE TIME OF SAMPLING. Performed By: #### 5 6101, [id number] #### [facility] [address] RBC'S 2 UNITSon 10-05-2019 CROSSMATCH INTERP 1 COMP Normal [facility] Comment on above: Performed By: #### 8 6002 #### [facility] [address] [facility] [address] CROSSMATCH INTERP 2 COMP Normal [facility] Comment on above: Performed By: #### 8 6002 #### [facility] [address] PRODUCT CODE 1 E0336 Normal The [facility] Comment on above: Performed By: #### 8 6002 #### [facility] [address] [place] [id number], [facility] PRODUCT CODE 2 E0336 Normal [facility] Comment on above: Performed By: #### 8 6002 #### [facility] [address] [place] [address], [place] PRODUCT STATUS 1 RE Normal The [facility] Comment on above: Result Comment: Resu lt changed by IF on 10/06/2019 08:49. The previous value was XM. Result changed by IF on 10/06/2019 13:54. The previous value was IS. Result changed by IF on 10/09/2019 06:38. The previous value was XM. Performed By: #### 8 6002 #### [facility] [address] [place] [address], [place] PRODUCT STATUS 2 RE Normal The [facility] Comment on above: Result Comment: Resu lt changed by IF on 10/06/2019 08:49. The previous value was XM. Result changed by IF on 10/06/2019 13:54. The previous value was IS. Result changed by IF on 10/09/2019 06:38. The previous value was XM. Performed By: #### 8 6002 #### [facility] [address] [place] [address], [place] UNIT ABO 1 B Normal [facility] Comment on above: Performed By: #### 8 6002 #### [facility] [address] [place] [address], [place] UNIT ABO 2 B Normal [facility] Comment on above: Performed By: #### 8 6002 #### [facility] [address] [place] [address], [place] UNIT ID 1 [id number] Normal The [facility] Comment on above: Performed By: #### 8 6002 #### [facility] [address] [place] [address], [place] UNIT ID 2 [id number] Normal [facility] Comment on above: Performed By: #### 8 6002 #### [facility] [address] [place] [address], [facility] UNIT RH 1 Positive Normal [facility] Comment on above: Performed By: #### 8 6002 #### [facility] [address] [place] [address], [facility] UNIT RH 2 Positive Normal [facility] Comment on above: Performed By: #### 8 6002 #### [facility] [address] TSH3 WITH REFLEXon 9 TSH 3RD GENERATION 1.72 uIU/mL Normal 0.34-5.60 [facility] Comment on above: Order Comment: Yes: Add to Previous draw if able Performed By: #### 4 6413, 75117, 53921, 19171 #### [facility] [address] TYPE AND SCREENon 10-05-2019 ABO INTERPRETATION B Normal The [facility] Comment on above: Performed By: #### 6 2586 #### [facility] [address] [facility] [address] RH INTERPRETATION Positive Normal The [facility] Comment on above: Performed By: #### 6 2586 #### [facility] [address] UFH HEPARIN ASSAYon 10-05-20 19 UNFRACTIONATED HEPARIN 0.14 IU/mL Critically low 0.30-0.70 [facility] Comment on above: Result Comment: Chioma roxaban and Apixaban will interfere with the anti Xa assay used to monitor UFH and LMWH. Results called. Accurately read back by MATT DESOUZA RN [id number] Performed By: #### 3 0477 #### [facility] [address] Vital Signs Date Time Vital Sign Value Performing Clinician Facility 01-30-2025 11:30-0400 Diastolic blood pressure 60 mm[Hg] Trena Horvath DO Work Phone: [facility] [employer] 01-30-2025 11:30-0400 Heart rate 59 /min Trena Horvath DO Work Phone: [facility] [employer] 01-30-2025 11:30-0400 Respiratory rate 16 /min Trean Horvath DO Work Phone: [facility] [employer] 01-30-2025 11:30-0400 SaO2% (BldA) [Mass fraction] 96 % Trena Horvath DO Work Phone: [facility] [employer] 01-30-2025 11:30-0400 Systolic blood pressure 118 mm[Hg] Trena Horvath DO Work Phone: [facility] [employer] 01-30-2025 11:00-0400 Body temperature 97.39 [degF] Trena Horvath DO Work Phone: [facility] [employer] 01-30-2025 08:56-0400 Body height 170.2 cm Trena Horvath DO Work Phone: [facility] [employer] 01-30-2025 08:56-0400 Body mass index (BMI) [Ratio] 30.76 kg/m2 Trenaurvashi Horvath DO Work Phone: [facility] [employer] 01-30-2025 08:56-0400 Body weight 89.09 kg Trena Horvath DO Work Phone: [facility] [employer] 12-26-2024 09:35-0500 Diastolic blood pressure 58 mm[Hg] Trena Horvath DO Work Phone: [facility] [employer] 12-26-2024 09:35-0500 Heart rate 58 /min Trena Horvath DO Work Phone: [facility] [employer] 12-26-2024 09:35-0500 Respiratory rate 15 /min Trena Horvath DO Work Phone: [facility] [employer] 12-26-2024 09:35-0500 SaO2% (BldA) [Mass fraction] 97 % Trena Horvath DO Work Phone: [facility] 12-26-2024 09:35-0500 Systolic blood pressure 118 mm[Hg] [facility] 12-26-2024 09:23-0500 Body temperature 98.1 [degF] Trena [facility]vath DO Work Phone[email or web address] [employer] 12-26-2024 07:55-0500 Body height 170.2 cm Trena Horvath DO [facility] 12-26-2024 07:55-0500 Body mass index (BMI) [Ratio] 29.19 kg/m2 Trena Horvath DO Work [facility] 12-26-2024 07:55-0500 Body weight 84.55 kg Trena Horvath DO [facility] 12-14-2024 10:14-0500 Body height 169.5 cm Kojo Rodriguez MD Work Phone: [facility] 12-14-2024 10:14-0500 Body mass index (BMI) [Ratio] 31.24 kg/m2 Kojo Rodriguez MD Work Phone: [facility] 12-14-2024 10:14-0500 Body weight 89.81 kg Kojo Rodriguez MD Work Phone: [facility] 12-14-2024 10:14-0500 Diastolic blood pressure 76 mm[Hg] Kojo Rodriguez MD Work Phone: [facility] 12-14-2024 10:14-0500 Heart rate 58 /min Kojo Rodriguez MD Work Phone: [facility] 12-14-2024 10:14-0500 SaO2% (BldA) [Mass fraction] 98 % Kojo Rodriguez MD Work Phone: [facility] 12-14-2024 10:14-0500 Systolic blood pressure 132 mm[Hg] Kojo Rodriguez MD Work Phone: [facility] 09-01-2024 09:56-0400 Body height 169.5 cm Kojo Rodriguez MD Work Phone: [facility] [facility] 09-01-2024 09:56-0400 Body mass index (BMI) [Ratio] 31.09 kg/m2 Kojo Rodriguez MD Work Phone: [facility] 09-01-2024 09:56-0400 Body weight 89.36 kg Kojo Rodriguez MD Work Phone: [facility] 09-01-2024 09:56-0400 Diastolic blood pressure 74 mm[Hg] Kojo Rodriguez MD Work Phone: [facility] 09-01-2024 09:56-0400 Heart rate 56 /min Kojo Rodriguez MD Work Phone: [facility] 09-01-2024 09:56-0400 SaO2% (BldA) [Mass fraction] 96 % Kojo Rodriguez MD Work Phone: [facility] 09-01-2024 09:56-0400 Systolic blood pressure 130 mm[Hg] Kojo Rodriguez MD Work Phone: [facility] 10-06-2019 16:13-0500 Respiratory rate 12 /min PHYSICIAN UNKNOWN [facility] Comment on above: Order Comment: No: Do not add to previou s draw Performed By: #### [id number] #### [address] Encounters Encounter Date Encounter Type Care Provider Facility Start: 04-05-2025 End: 04-05-2025 ambulatory [facility] Start: 02-13-2025 End: 02-13-2025 ambulatory KOJO RODRIGUEZ Not Available Start: 01-30-2025 End: 01-30-2025 [facility]ulatory [facility] Start: 01-30-2025 End: 01-30-2025 Subsequent hospital visit by physician Trena Horvath DO Work Phone: [facility] Start: 12-26-2024 End: 12-26-2024 ambulatory [facility] Start: 12-26-2024 End: 12-26-2024 Subsequent hospital visit by physician Trena Horvath DO Work Phone: [facility] Start: 12-14-2024 End: 12-14-2024 Bamboo flowsheet Kojo Rodriguez MD Work Phone: [facility] Start: 12-14-2024 End: 12-14-2024 Bamboo flowsheet Kojo Rodriguez MD Work Phone: [facility] Start: 12-14-2024 End: 12-14-2024 Office outpatient visit 25 minutes Kojo Rodriguez MD Work Phone: [facility] Comment on above: Coronary artery dise ase involving iliamna coronary artery of iliamna heart without angina pectoris (CMS/HCC) (Primary Dx); Type 2 diabetes mellitus with other circulatory complications (CMS/HCC); Type 2 diabetes mellitus with other specified complication (CMS/HCC); Male erectile dysfunction, unspecified; Paroxysmal atrial fibrillation (CMS/HCC); Combined hyperlipidemia (CMS/HCC); Statin intolerance Start: 12-14-2024 End: 12-14-2024 ambulatory KOJO RODRIGUEZ Not Available Start: 10-18-2024 End: 10-18-2024 ambulatory CALVINSasha ACOSTA Not Available Start: 10-18-2024 End: 10-18-2024 Bamboo flowsheet [facility] Work Phone: [facility] Start: 10-18-2024 End: 10-18-2024 Bamboo flowsheet Calvin Northeim PA Work Phone: [facility] Start: 10-18-2024 End: 10-18-2024 Office outpatient new 20 minutes Calvin Northei PA Work Phone: [facility] Comment on above: Open comedone (Prima ry Dx) Start: 09-01-2024 End: 09-01-2024 Bamboo flowsheet Kojo Rodriguez MD Work Phone: [facility] Start: 09-01-2024 End: 09-01-2024 Bamboo flowsheet Kojo Rodriguez MD Work Phone: [facility] Start: 09-01-2024 End: 09-01-2024 Office outpatient visit 25 minutes Kojo Rodriguez MD Work Phone: [facility] Comment on above: Type 2 diabetes mei itus with other circulatory complications (CMS/HCC) (Primary Dx); Basal cell carcinoma of neck; Combined hyperlipidemia (CMS/HCC); Coronary artery disease involving iliamna coronary artery of iliamna heart without angina pectoris (CMS/HCC); Myalgia Start: 09-01-2024 End: 09-01-2024 ambulatory KOJO RODRIGUEZ Not Available Start: 05-02-2024 End: 05-02-2024 ambulatory KOJO RODRIGUEZ Not Available Start: 03-02-2024 End: 03-02-2024 ambulatory KOJO RODRIGUEZ Not Available Start: 01-07-2023 End: 01-08-[address] KOJO RODRIGUEZ Facility: Start: 10-05-2019 End: 10-12-2019 Evaluation and management of inpatient PHYSICIAN UNKNOWN Facility:[facility] Procedures Date Procedure Procedure Detail Performing Clinician Start: 12-14-2024 Hemoglobin glycosyla maty a1c Kojo Rodriguez MD Work Phone: Start: 09-01-2024 Hemoglobin glycosyla maty a1c Kojo Rodriguez MD Work Phone: Start: 10-30-2023 History of coronary artery bypass grafting S/P CABG (coronary artery bypass graft) Kojo Rodriguez MD Work Phone: Start: 10-06-2019 BYPASS 1 COR ART FRO M AORTA WITH AUTOL VN, OPEN APPROACH JOSELO MASROOR Start: 10-06-2019 BYPASS 1 COR ART FRO M L INT MAMMARY, OPEN APPROACH JOSELO MASROOR Start: 10-06-2019 EXCISION OF LEFT SAP HENOUS VEIN, PERC ENDO APPROACH JOSELO MASROOR Start: 10-06-2019 INSERTION OF MONITOR DEV INTO PULM TRUNK, PERC APPROACH SUMIT BROWN Start: 10-06-2019 INSERTION OF MONITOR ING DEVICE INTO UP ART, PERC APPROACH SUMIT BROWN Start: 10-06-2019 MONITORING OF ARTERI AL SATURATION, PERIPHERAL, PERC APPROACH JOSELO MASROOR Start: 10-06-2019 OCCLUSION OF KATHERIN WIT H EXTRALUM DEV, OPEN APPROACH JOSELO MASROOR Start: 10-06-2019 Performance of Cardi ac Output, Continuous JOSELO MASROOR Start: 10-06-2019 ULTRASONOGRAPHY OF H EART WITH AORTA, TRANSESOPHAGEAL ALI Pau BROWN Start: 10-05-2019 Antibody screen PHYSICI AN UNKNOWN Comment on above: Performed By: #### 6 [id number] #### [facility] [address] Start: 10-05-2019 ASSIST WITH CARDIAC OUTPUT USING BALLOON PUMP, CONTINUOUS [facility] [place] Start: 10-05-2019 FLUOROSCOPY OF ABDOM INAL AORTA USING OTHER CONTRAST [facility] [place] Start: 10-05-2019 FLUOROSCOPY OF MULTI PLE CORONARY ARTERIES USING OTH CONTRAST [facility]AB [facility] [place] Plan of Treatment Date Care Activity Detail Author Start: 12-05-2034 DTaP/Tdap/Td vaccine (2 - Td or Tdap) DTaP/Tdap/Td vaccine (2 - Td or Tdap) [facility] Start: 01-12-2026 Screening for malign ant neoplasm of colon [facility] Start: 09-22-2025 Glaucoma screening Diabetes: R etinopathy Screening [facility] Start: 03-14-2025 Hemoglobin A1c measurement Diabetes: Hemoglobin A1C [facility] Start: 03-02-2025 Medicare Annual Wellness (AWV) Medicare Annual Wellness (AWV) [facility] Start: 01-30-2025 End: 01-30-2025 Xcapsl ctrc rmvl insj io lens prosth w/o ecp EYE CATARACT EMULSIFICATION INTRAOCULAR LENS IMPLANT Combined forms of age-related cataract of both eyes 01/30/2025 10:33 AM EDT [facility] Start: 01-28-2025 End: 12-14-2025 Lipid 1996 panel - Serum or Plasma Lipid panel Lab Routine Combined hyperlipidemia (CMS/HCC) Statin intolerance Expected: 01/28/2025 (Approximate), Expires: 12/14/2025 [facility] Comment on above: Expected: 01/28/2025 (Approximate), Expires: 12/14/2025 Start: 01-06-2025 End: 01-06-2025 Patient encounter procedure 01/06/2025 11:10 AM EST Office Visit [facility] [address] [place] [phone] Gissel Barahona, PA [address] [place] [address] [facility] Start: 12-26-2024 End: 12-26-2024 Xcapsl ctrc rmvl insj io lens prosth w/o ecp EYE CATARACT EMULSIFICATION INTRAOCULAR LENS IMPLANT Combined forms of age-related cataract of both eyes 12/26/2024 8:58 AM EST [facility] Start: 12-14-2024 End: 12-14-2025 Comprehensive metabolic 2000 panel - Serum or Plasma Comprehensive metabolic panel Lab Routine Type 2 diabetes mellitus with other circulatory complications (CMS/HCC) Expected: 12/14/2024 (Approximate), Expires: 12/14/2025 [facility] Work Phone: Comment on above: Expected: 12/14/2024 (Approximate), Expires: 12/14/2025 Start: 12-14-2024 End: 12-14-2025 Hemoglobin A1c/Hemoglobin.total in Blood Hemoglobin A1c Lab Routine Type 2 diabetes mellitus with other circulatory complications (CMS/HCC) Expected: 12/14/2024 (Approximate), Expires: 12/14/2025 [facility] Comment on above: Expected: 12/14/2024 (Approximate), Expires: 12/14/2025 Start: 12-14-2024 End: 12-14-2024 Patient encounter procedure 12/14/2024 10:15 AM EST Office Visit [facility] [address] [facility] [address] [place] [phone] Kojo Rodriguez MD [address] [facility] [address] [place], [place] [id number] Arrived [facility] Comment on above: Arrived Start: 12-05-2024 End: 12-05-2024 Patient encounter procedure 12/05/2024 10:00 AM EST Office Visit [facility] [address] [facility] [address] [place] [phone] Kojo Rodriguez MD [address] [place] [address] [facility] Start: 12-02-2024 Hemoglobin A1c measurement Diabetes: Hemoglobin A1C [facility] Start: 12-02-2024 Urine screening for protein Diabetes: Urine Protein Screening [facility] Start: 10-21-2024 COVID-19 Vaccine () COVID-19 Vaccine () [facility] Start: 10-21-2024 COVID-19 Vaccine () COVID-19 Vaccine () [employer] Start: 09-01-2024 End: 09-01-2024 Patient encounter procedure 09/01/2024 10:00 AM EDT Office Visit [facility] [address] [facility] [address] [place] [phone] Kojo Rodriguez MD [address] [place] [address] Arrived [facility] Comment on above: Arrived Start: 08-02-2024 Hemoglobin A1c measurement Diabetes: Hemoglobin A1C [facility] Start: 07-24-2024 Influenza vaccination Influenza Vacc ine (#1) [facility] Start: 01-20-2024 Glaucoma screening Diabetes: R etinopathy Screening [facility] Start: 1950 Screening for malign ant neoplasm of colon [facility] End: 12-26-2024 INITIATE PACU OXYGEN THERAPY PROTOCOL Initiate PACU Oxygen Therapy Protocol Respiratory Care Routine Continuous until discontinued starting 12/26/2024 [facility] Phone: Comment on above: Continuous until dis continued starting 12/26/2024 End: 01-30-2025 INITIATE PACU OXYGEN THERAPY PROTOCOL Initiate PACU Oxygen Therapy Protocol Respiratory Care Routine Continuous until discontinued starting 01/30/2025 [facility] Phone: Comment on above: Continuous until dis continued starting 01/30/2025 Oxygen therapy [[facility] [place] Initiate Oxygen Therapy Protocol Respiratory Care Routine As Needed until discontinued starting 12/26/2024 [facility] Comment on above: As Needed until disc ontinued starting 12/26/2024 Oxygen therapy [Mini [employer] Data Set] Initiate Oxygen Therapy Protocol Respiratory Care Routine Daily until discontinued starting 12/26/2024 [facility] Comment on above: Daily until disconti nued starting 12/26/2024 Oxygen therapy [Mini [employer] Data Set] Initiate Oxygen Therapy Protocol Respiratory Care Routine As Needed until discontinued starting 01/30/2025 [facility] Comment on above: As Needed until disc ontinued starting 01/30/2025 Oxygen therapy [Mini mum Data Set] Initiate Oxygen Therapy Protocol Respiratory Care Routine Daily until discontinued starting 01/30/2025 [facility] Comment on above: Daily until disconti nued starting 01/30/2025 Immunizations Immunization Date Immunization Notes Care Provider [facility] 12-05-2024 Pneumococcal conjuga te vaccine, 21 valent (PCV21), polysaccharide [id number] conjugate, preservative free Kojo Rodriguez MD Work Phone: [facility] 12-05-2024 tetanus toxoid, redu taran diphtheria toxoid, and acellular pertussis vaccine, adsorbed Kojo Rodriguez MD Work Phone: [facility] 08-26-2024 influenza, high dose seasonal, preservative-free Kojo Rodriguez MD Work Phone: [facility] 08-26-2024 SARS-COV-2 (COVID-19 ) vaccine, mRNA, spike protein, LNP, bivalent, PF Kojo Rodriguez MD Work Phone: [facility] Work Phone: 10-16-2023 RSV, recombinant, protein subunit RSVpreF, adjuvant reconstitu, 120mcg/0.5mL, PF (Arexvy) Kojo Rodriguez MD Work Phone: [facility] 09-25-2023 Influenza, High-dose Seasonal, Quadrivalent, Preservative Free Kojo Rodriguez MD Work Phone: [facility] 09-25-2023 SARS-COV-2 (COVID-19 ) vaccine, mRNA, spike protein, LNP, PF, 50 mcg/0.5 mL Kojo Rodriguez MD Work Phone: [facility] 09-25-2023 influenza virus vacc ine, unspecified formulation Kojo Rodriguez MD Work Phone: [facility] 04-17-2023 zoster vaccine recombinant Kojo Rodriguez MD Work Phone: [facility] 02-06-2023 zoster vaccine recombinant Kojo Rodriguez MD Work Phone: [facility] 11-03-2022 Moderna SARS-CoV-2 Booster Vaccination Kojo Rodriguez MD Work Phone: [facility] 09-17-2022 influenza, high dose seasonal, preservative-free Kojo Rodriguez MD Work Phone: [facility] 09-17-2022 Influenza, High-dose Seasonal, Quadrivalent, Preservative Free Kojo Rodriguez MD Work Phone: [facility] 09-25-2021 Influenza, High-dose Seasonal, Quadrivalent, Preservative Free Kojo Rodriguez MD Work Phone: [facility] 09-11-2020 Influenza, High-dose Seasonal, Quadrivalent, Preservative Free Kojo Rodriguez MD Work Phone: [facility] 09-01-2019 influenza, high dose seasonal, preservative-free Kojo Rodriguez MD Work Phone: [facility] 09-01-2019 Influenza, High-dose Seasonal, Quadrivalent, Preservative Free Kojo Rodriguez MD Work Phone: [facility] 09-05-2018 influenza, high dose seasonal, preservative-free Kojo Rodriguez MD Work Phone: [facility] 09-05-2018 Influenza, High-dose Seasonal, Quadrivalent, Preservative Free Kojo oRdriguez MD Work Phone: [facility] 09-05-2018 pneumococcal polysaccharide vaccine, 23 valent Kojo Rodriguez MD Work Phone: [facility] 09-17-2017 influenza, high dose seasonal, preservative-free Kojo Rodriguez MD Work Phone: [facility] 09-17-2017 Influenza, High-dose Seasonal, Quadrivalent, Preservative Free Kojo Rodriguez MD Work Phone: [facility] 01-29-2017 pneumococcal conjuga te vaccine, 13 valent Kojo Rodriguez MD Work Phone: [facility] 10-31-2016 influenza, high dose seasonal, preservative-free Kojo Rodriguez MD Work Phone: [facility] 10-31-2016 influenza, injectabl e, quadrivalent, preservative free Kojo Rodriguez MD Work Phone: [facility] 12-31-2015 pneumococcal polysaccharide vaccine, 23 valent Kojo Rodriguez MD Work Phone: [facility] 10-02-2015 influenza, high dose seasonal, preservative-free Kojo Rodriguez MD Work Phone: [facility] 2014 influenza, seasonal, injectable Kojo Rodriguez MD Work Phone: [facility] 2014 seasonal influenza, intradermal, preservative free Kojo Rodriguez MD Work Phone: [facility] 10-03-2013 zoster vaccine, live Kojo Rodriguez MD Work Phone: [facility] 08-29-2013 influenza, seasonal, injectable Kojo Rodriguez MD Work Phone: [facility] Payers Date Payer Category Payer Private Health Insurance [place] [id number] 2022 Unknown [employer] AAR [id number] 2022-Present [address] [place] [address] [id number] 2015 Medicare [id number] 1959 Medicare [id number] 1959 Unknown [id number] 1950 Unknown [id number] 1950 Unknown [id number] 1950 Unknown [id number] 1950 Unknown [id number] 1950 Unknown [id number] 1950 Unknown [id number] 1950 Unknown [id number] 1950 Unknown [id number] 1950 Unknown [id number] 1950 Unknown [id number] Social History Date Type Detail Facility Start: 10-30-2023 Tobacco smoking stat [facility] Never smoked tobacco [facility] Start: 10-30-2023 End: 12-15-2024 Tobacco use and exposure Smokeless tobacco non-user [facility] Start: 05-02-2024 End: 12-14-2024 Alcoholic beverage intake Ex-drinker (finding) [facility] Start: 05-02-2024 End: 01-30-2025 History of Social function [facility] Start: 05-02-2024 End: 01-30-[address] [facility] Start: 1950 Sex assigned at Not on file [facility] Start: 12-15-2024 [facility] [employer] History of tobacco use Current smoker [employer] History of tobacco use Cigarette Smoker B on [employer] Start: 12-26-2024 End: 01-30-2025 Alcoholic beverage intake Current drinker of alcohol (finding) [employer] Physical abuse Denies [facility] M.Setek Start: 12-15-2024 Alcohol Comment rarely Corby ALTHIA sabrina Azumio Start: 12-12-2024 Sex Male (finding) [place] timothy Azumio Medical Equipment Procedure Code Equipment Code Equipment Origin al Text Equipment Identifier Dates 1 each by Other route Daily Use as instructed [id number] Start: 09-01-2024 End: 09-01-2024 [employer] [id number] Start: 12-26-2024 [employer] [id number] Star t: 01-30-2025 Clinical Notes 09-01-2024 to 04-05-2025 Amie Olsen RN - 01/30/2025 11:38 AM Amie Mancini RN - 01/30/2025 11:36 AM Denilson Barboza RN - 12/26/2024 9:44 AM Mary Oneill RN - 12/15/2024 1:29 PM EST Note Date & Type Note Facility 04-05-2025 Note [facility] Note Chief Complaint: Patient here for 1 year follow up. Patient had labs in January. Patient states he has been feeling fine. No cardiac issues at this time per patient. HPI: Tyler Villegas is a 74 y.o. male with a history of coronary artery disease, hypertension, dyslipidemia and type 2 diabetes here in routine follow-upWith a history of coronary artery disease, hypertension, dyslipidemia and type 2 diabetes here in routine follow-up Doing well Update 04/05/2025: Doing well; no new cardiovascular symptoms Used to hike several years ago. Stopped about 3 to 4 months ago due to weather and other issues. Denies exertional chest pain. Cardiology ROS: Review of Systems Musculoskeletal: Positive for arthritis, back pain, joint pain and myalgias. All other systems reviewed and are negative. Past Medical History He has a past medical history of Coronary artery disease, Diabetes mellitus (CMS/HCC), and Sinus bradycardia. Surgical History He has a past surgical history that includes Cardiac catheterization and Coronary artery bypass graft. Social History He reports that he has quit smoking. His smoking use included cigarettes. He has never used smokeless tobacco. He reports current alcohol use. No history on file for drug use. Family History Family History Family history unknown: Yes Allergies Atorvastatin Medications Current Outpatient Medications: aspirin 81 mg EC tablet, in the morning., Disp: , Rfl: atorvastatin (Lipitor) 80 mg tablet, Take 1 tablet (80 mg) by mouth in the morning., Disp: 90 tablet, Rfl: 3 cetirizine (ZyrTEC) 10 mg tablet, in the morning., Disp: , Rfl: Jardiance 25 mg, Take 25 mg by mouth in the morning., Disp: , Rfl: lisinopril 5 mg tablet, Take 1 tablet (5 mg) by mouth in the morning. (Patient taking differently: Take 20 mg by mouth in the morning.), Disp: 90 tablet, Rfl: 3 metFORMIN (Glucophage) 1,000 mg tablet, Take 1,000 mg by mouth with breakfast and with evening meal., Disp: , Rfl: metoprolol succinate XL (Toprol-XL) 25 mg 24 hr tablet, Take 1 tablet (25 mg) by mouth once daily as directed. Do not crush or chew., Disp: 90 tablet, Rfl: 3 omeprazole OTC (PriLOSEC OTC) 20 mg EC tablet, in the morning., Disp: , Rfl: rosuvastatin (Crestor) 20 mg tablet, Take 20 mg by mouth 3 (three) times a week., Disp: , Rfl: Last Recorded Vitals BP 132/68 (BP Location: Left arm, Patient Position: Sitting) Pulse 55 Ht 1.702 m (5' 7 ) Wt 98 kg (216 lb) SpO2 98% BMI 33.83 kg/m??? Physical Examination: GENERAL: alert and oriented x3, well developed, in no acute distress. HEAD: atraumatic, normocephalic. EYES: LEXII, EOMI. NECK: trachea midline, no JVD present, no carotid bruits present. CARDIAC: S1, S2 present. RRR. No murmur, rubs, or gallops. RESPIRATORY: CTAB, no increased effort of breathing, no rales, rhonchi, or wheezing. ABDOMEN: soft, nontender, nondistended. EXTREMITIES: no lower extremity edema, peripheral pulses are 2+ bilaterally. No rash/skin discoloration present. NEURO: strength/sensation equal and symmetric in bilateral upper and lower extremities. PSYCH: appropriate mood, affect, and judgement. Investigations: Service Date: 10/05/2019 Cardiovascular Laboratory Report FINAL IMPRESSION: 1. Severe, calcific stenosis of the ostial and proximal left main coronary artery. 2. Severe disease of the left anterior descending coronary artery. 3. Severe disease of an obtuse marginal branch of the dominant left circumflex coronary artery. 4. Normal global left ventricular systolic function by noninvasive imaging. 5. Successful percutaneous placement of an intra-aortic balloon pump. RECOMMENDATIONS: 1. Routine precautions and management for intra-aortic balloon pump. 2. Consult Cardiothoracic Surgery for coronary artery bypass graft surgery. 3. Aggressive cardiovascular risk factor modification. 4. Optimization of medical management; aspirin, high-intensity statin therapy, beta-carolyn, +/- an angiotensin-converting enzyme inhibitor indicated. 5. The patient will be admitted to the Cardiology Service; further recommendations deferred to the inpatient services. PROCEDURES: Limited femoral angiography, bilateral selective coronary angiography, catheter placement in the abdominal aorta, abdominal aortography, percutaneous placement of an intra-aortic balloon pump. Pt. Name: Tyler Villegas Room #: [id number] Discharge Date: Birthdate: 1950 OPERATIVE REPORT DATE OF SURGERY: 10/06/2019 SURGEON: Joselo Raymundo MD PREOPERATIVE DIAGNOSIS: Left main coronary artery disease. POSTOPERATIVE DIAGNOSIS: Left main coronary artery disease. OPERATION: 1. Coronary artery bypass grafting x2 LOPEZ to LAD, saphenous vein graft to obtuse marginal 1 branch. 2. Exclusion of left atrial appendage with 35 mm AtriClip device. 3. Endoscopic vein harvesting of the left greater sap (more content not included)... [facility] 01-30-2025 History of Present illness Narrative Pt ambulated out of department with friend. Belongings in hand. Discharge instructions reviewed with pt and friend Jennifer. All questions answered. Pt verbalizes readiness to go home. Discharge Criteria Inpatients must meet Criteria 1 through 7. All other patients are either YES or N/A. If a NO is chosen then Anesthesia or Surgeon must be notified. 1. Minimum 30 minutes after last dose of sedative medication. Yes 2. Systolic BP between 90 - 160. Diastolic BP between 60 - 90. Yes 3. Pulse between 60 - 120 No, pt at baseline. Anesthesia aware. Okay to discharge. 4. Respirations between 8 - 25. Yes 5. SpO2 92% - 100%. Yes 6. Able to cough and swallow or return to baseline function. Yes 7. Alert and oriented or return to baseline mental status. Yes 8. Demonstrates controlled, coordinated movements, ambulates with steady gait, or return to baseline activity function. Yes 9. Minimal or no pain or nausea, or at a level tolerable and acceptable to patient. Yes 10. Takes and retains oral fluids as allowed. N/A, pt declined 11. Procedural / perioperative site stable. Minimal or no bleeding. Yes 12. If GI endoscopy procedure, minimal or no abdominal distention or passing flatus. N/A 13. Written discharge instructions and emergency telephone number provided. Yes 14. Accompanied by a responsible adult. Yes documented in this encounter [facility] 01-30-2025 Hospital Discharge instructions Trena Horvath DO - 01/30/2025 11:06 AM EDT SAME DAY SURGERY DISCHARGE INSTRUCTIONS 1. Do not drive or operate hazardous machinery for 24 hours. 2. Do not make important personal or business decisions for 24 hours. 3. Do not drink alcoholic beverages for 24 hours. 4. Do not smoke tobacco products for 24 hours. 5. Limit your activities for 24 hours. Do not engage in heavy work until your surgeon gives you permission. 6. Patient should not be left alone for 12-24 hours following surgical procedure. 7. Wash hands before and after incision care. It is important to practice good personal hygiene during the post op period. 8. Report the following signs or any questions regarding your physical condition to your surgeon immediately: Excessive swelling of, or around the wound area. Redness. Temperature of 100 degrees (F) or above. Excessive pain. 9. Call your surgeon for any questions regarding your surgery. CATARACT DISCHARGE INSTRUCTIONS Do not remove eye patch/shield today. Protect the operated eye during sleep by covering it with clear plastic shield. Tape the shield securely to the face before retiring . Do this for one week after surgery. Avoid bumping the operated eye during the daytime. Sensitivity to light and watering of the eye is normal during the first month. Wearing of dark glasses will help these symptoms and this is optional. Minor crusting and discharge adherent to the lid margins will persist till the incision heals. Cleanse the lids by application of a warm compress several times a day as needed. Use of either the operated eye or unoperated eye is not harmful. Until the new glasses are prescribed, the operated eye may be out of focus and may not see details clearly. Vision maybe clearer in the operated eye without glasses. You may do everything necessary to care for yourself, including hair care, tooth brushing, dressing, etc. Light work,including stooping over and lifting, is not harmful. Please phone if any problems arise during the healing period. The office number is [phone]. Take surgery bag and all eye drops to Dr. Horvath's office tomorrow at 10:50am. You may resume your normal diet. Start your eye drops tomorrow after your post-op appointment: Ofloxacin/Polytrim one drop to the operated eye 4 times daily Prednisolone one drop to the operated eye 4 times daily documented in this encounter [facility] 12-26-2024 History of Present illness Narrative Discharge Criteria Inpatients must meet Criteria 1 through 7. All other patients are either YES or N/A. If a NO is chosen then Anesthesia or Surgeon must be notified. 1. Minimum 30 minutes after last dose of sedative medication. Yes 2. Systolic BP between 90 - 160. Diastolic BP between 60 - 90. Yes 3. Pulse between 60 - 120 Yes 4. Respirations between 8 - 25. Yes 5. SpO2 92% - 100%. Yes 6. Able to cough and swallow or return to baseline function. Yes 7. Alert and oriented or return to baseline mental status. Yes 8. Demonstrates controlled, coordinated movements, ambulates with steady gait, or return to baseline activity function. Yes 9. Minimal or no pain or nausea, or at a level tolerable and acceptable to patient. Yes 10. Takes and retains oral fluids as allowed. Yes 11. Procedural / perioperative site stable. Minimal or no bleeding. Yes 12. If GI endoscopy procedure, minimal or no abdominal distention or passing flatus. Yes 13. Written discharge instructions and emergency telephone number provided. Yes 14. Accompanied by a responsible adult. Yes-Maty, friend Patient received NPO instructions and pre-op medication instructions to be taken on the day of the procedure with a small sip of water. Pt was also given pre-op eye drop instructions from Dr. Horvath's office. NPO status (including no gum, hard candy, mints, water, coffee, or smoking) was reviewed and patient verbalizes understanding. Patient denies any fever related illnesses or antibiotic use for any upper respiratory conditions in the last 4 weeks. They were advised to contact their surgeon's office if they experience any fever, chills, or cold symptoms before their procedure. Attempted PAT phone call; no answer; message left to return PAT phone call. documented in this encounter [facility] 12-26-2024 Hospital Discharge instructions Trena Horvath, - 12/26/2024 9:27 AM EST SAME DAY SURGERY DISCHARGE INSTRUCTIONS 1. Do not drive or operate hazardous machinery for 24 hours. 2. Do not make important personal or business decisions for 24 hours. 3. Do not drink alcoholic beverages for 24 hours. 4. Do not smoke tobacco products for 24 hours. 5. Limit your activities for 24 hours. Do not engage in heavy work until your surgeon gives you permission. 6. Patient should not be left alone for 12-24 hours following surgical procedure. 7. Wash hands before and after incision care. It is important to practice good personal hygiene during the post op period. 8. Report the following signs or any questions regarding your physical condition to your surgeon immediately: Excessive swelling of, or around the wound area. Redness. Temperature of 100 degrees (F) or above. Excessive pain. 9. Call your surgeon for any questions regarding your surgery. CATARACT DISCHARGE INSTRUCTIONS Do not remove eye patch/shield today. Protect the operated eye during sleep by covering it with clear plastic shield. Tape the shield securely to the face before retiring . Do this for one week after surgery. Avoid bumping the operated eye during the daytime. Sensitivity to light and watering of the eye is normal during the first month. Wearing of dark glasses will help these symptoms and this is optional. Minor crusting and discharge adherent to the lid margins will persist till the incision heals. Cleanse the lids by application of a warm compress several times a day as needed. Use of either the operated eye or unoperated eye is not harmful. Until the new glasses are prescribed, the operated eye may be out of focus and may not see details clearly. Vision maybe clearer in the operated eye without glasses. You may do everything necessary to care for yourself, including hair care, tooth brushing, dressing, etc. Light work,including stooping over and lifting, is not harmful. Please phone if any problems arise during the healing period. The office number is [phone]. Take surgery bag and all eye drops to Dr. Horvath's office tomorrow at 9:40am. You may resume your normal diet. Start your eye drops tomorrow after your post-op appointment: Ofloxacin/Polytrim one drop to the operated eye 4 times daily Prednisolone one drop to the operated eye 4 times daily documented in this encounter [facility] 12-14-2024 History of Present illness Narrative Images from the original note were not included. HPI follow up hyperlipidema/myalgia Additional comments: Was advised to stop crestor last visit Med Refill Additional comments: Metformin--gemini aguirre Last edited by Leelee Chung LPN on 12/14/2024 10:20 AM. Subjective Patient ID: Tyler Villegas is a 74 y.o. male who presents for Diabetes, follow up hyperlipidema/myalgia (Was advised to stop crestor last visit), and Med Refill (Metformin--gemini aguirre). Hypertension Patient is here for follow-up of elevated blood pressure. Blood pressure is not well controlled at home. Cardiac symptoms: none. Patient denies chest pain, claudication, irregular heart beat, lower extremity edema, near-syncope, orthopnea, palpitations, paroxysmal nocturnal dyspnea, syncope, and tachypnea. Cardiovascular risk factors: advanced age (older than 55 for men, 65 for women), diabetes mellitus, hypertension, and male gender. Diabetes Mellitus Patient presents for follow up of diabetes. Current symptoms include: none. Patient denies foot ulcerations, hypoglycemia , nausea, polydipsia, polyuria, visual disturbances, and vomiting. Evaluation to date has included: fasting blood sugar, fasting lipid panel, hemoglobin A1C, and microalbuminuria. Home sugars: 140-150 Has been running higher because he wasn't exercising as much Pt states since stopping crestor his myalgias have resolved Diabetes Pertinent negatives for diabetes include no chest pain and no fatigue. Med Refill Pertinent negatives include no chest pain or fatigue. Coronary Artery Disease Pertinent negatives include no chest pain, palpitations or shortness of breath. Hypertension Pertinent negatives include no chest pain, palpitations or shortness of breath. Current Outpatient Medications on File Prior to Visit Medication Sig Dispense Refill aspirin 81 MG EC tablet Take 1 tablet by mouth in the morning. cetirizine (ZyrTEC) 10 MG tablet Take 1 tablet by mouth in the morning. empagliflozin (Jardiance) 25 MG Take 1 tablet (25 mg) by mouth Daily 30 tablet 11 glucose blood test strip 1 each by Other route Daily Use as instructed 100 each 11 lisinopril 20 MG tablet Take 1 tablet (20 mg) by mouth Daily 30 tablet 11 metoprolol succinate XL (Toprol-XL) 25 MG 24 hr tablet Take 1 tablet by mouth in the morning. omeprazole OTC (PriLOSEC OTC) 20 MG EC tablet Take 1 tablet by mouth in the morning. [DISCONTINUED] metFORMIN (Glucophage) 1000 MG tablet Take 1 tablet (1,000 mg) by mouth in the morning and 1 tablet (1,000 mg) in the evening. Take with meals. 180 tablet 0 No current facility-administered medications on file prior to visit. I have reviewed and reconciled the history and medication list with the patient today. Allergies Allergen Reactions Atorvastatin Other Reaction(s): Other myalgias Social History Tobacco Use Smoking status: Never Smokeless tobacco: Never Substance Use Topics Alcohol use: Not Currently No family history on file. 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 No pertinent surgical history. Visit Vitals BP 132/76 Pulse 58 Ht 5' 6.75 Wt 198 lb SpO2 98% BMI 31.24 kg/m Smoking Status Never BSA 2.06 m Review of Systems Constitutional: Negative for fatigue. Respiratory: Negative for shortness of breath. Cardiovascular: Negative for chest pain and palpitations. Objective Physical Exam Constitutional: General: He is not in acute distress. Appearance: He is normal weight. He is not ill-appearing. HENT: Head: Normocephalic. Cardiovascular: Rate and Rhythm: Normal rate and regular rhythm. Heart sounds: Normal heart sounds. No murmur heard. Pulmonary: Effort: Pulmonary effort is normal. Breath sounds: Normal breath sounds. Musculoskeletal: General: No swelling. Right lower leg: No edema. Left lower leg: No edema. Neurological: Mental Status: He is alert. Psychiatric: Mood and Affect: Mood normal. Thought Content: Thought content normal. Judgment: Judgment normal. Office Visit on 12/14/2024 Component Date Value Ref Range Status Hemoglobin A1C 12/14/2024 6.7 Final Assessment/Plan Diagnoses and all orders for this visit: Coronary artery disease involving iliamna coronary artery of iliamna heart without angina pectoris (CMS/HCC) Type 2 diabetes mellitus with other circulatory complications (CMS/HCC) - POCT Glycated hemoglobin, total - metFORMIN (Glucophage) 1000 MG tablet; Take 1 tablet (1,000 mg) by mouth in the morning and 1 tablet (1,000 mg) in the evening. Take with meals. - Comprehensive metabolic panel; Future - Hemoglobin A1c; Future Type 2 diabetes mellitus with other specified complication (CMS/HCC) Male erectile dysfunction, unspecified Paroxysmal atrial fibrillation (CMS/HCC) Combined hyperlipidemia (CMS/HCC) - ezetimibe (Zetia) 10 MG tablet; Take 1 tablet (10 mg) by mouth Daily - Draw lipids 1 week PTNA Statin intolerance - ezetimibe (Zetia) 10 MG tablet; Take 1 tablet (10 mg) by mouth Daily Follow up in about 2 months (around 02/11/2025) for F/U med changes, Test/Lab Review. documented in this encounter [facility] 10-18-2024 History of Present illness Narrative Lesions: Location: scalp Duration: months Quality: denies pain, denies itch, denies bleeding Modifying factors: aggravated by picking, aggravated by wearing helmet Associated symptoms: non-healing, scaly Treatments: none Established patient of Yoli Palomo MD All pertinent medical history, medications, and allergies were reviewed. General Exam: alert, oriented to person, place, and time, normal affect, well appearing Unaccompanied A focused exam completed based on patient reported problems, see below: 1. Open comedone Mid Occipital Scalp Open clogged pore Contents extracted today. Continue observation, notify office if worsening. Related Procedures Ambulatory referral to Dermatology Next Visit: Recommend FBSE documented in this encounter [facility] 09-01-2024 History of Present illness Narrative Images from the original note were not included. Subjective Patient ID: Tyler Villegas is a 74 y.o. male who presents for Coronary Artery Disease and Diabetes. Refill- test strips WM tiffin Hypertension Patient is here for follow-up of elevated blood pressure. Blood pressure is not well controlled at home. Cardiac symptoms: none. Patient denies chest pain, claudication, irregular heart beat, lower extremity edema, near-syncope, orthopnea, palpitations, paroxysmal nocturnal dyspnea, syncope, and tachypnea. Cardiovascular risk factors: advanced age (older than 55 for men, 65 for women), diabetes mellitus, hypertension, and male gender. Diabetes Mellitus Patient presents for follow up of diabetes. Current symptoms include: none. Patient denies foot ulcerations, hypoglycemia , nausea, polydipsia, polyuria, visual disturbances, and vomiting. Evaluation to date has included: fasting blood sugar, fasting lipid panel, hemoglobin A1C, and microalbuminuria. Home sugars: pt has not been checking sugars at home--test strips Coronary Artery Disease Pertinent negatives include no chest pain, palpitations or shortness of breath. Diabetes Pertinent negatives for diabetes include no chest pain and no fatigue. Hypertension Pertinent negatives include no chest pain, palpitations or shortness of breath. Current Outpatient Medications on File Prior to Visit Medication Sig Dispense Refill aspirin 81 MG EC tablet Take 1 tablet by mouth in the morning. cetirizine (ZyrTEC) 10 MG tablet Take 1 tablet by mouth in the morning. empagliflozin (Jardiance) 25 MG Take 1 tablet (25 mg) by mouth Daily 30 tablet 11 lisinopril 20 MG tablet Take 1 tablet (20 mg) by mouth in the morning. 30 tablet 11 metFORMIN (Glucophage) 1000 MG tablet TAKE 1 TABLET BY MOUTH TWICE DAILY WITH MEALS 180 tablet 0 metoprolol succinate XL (Toprol-XL) 25 MG 24 hr tablet Take 1 tablet by mouth in the morning. omeprazole OTC (PriLOSEC OTC) 20 MG EC tablet Take 1 tablet by mouth in the morning. rosuvastatin (Crestor) 20 MG tablet Take 1 tablet (20 mg) by mouth in the morning. 30 tablet 11 [DISCONTINUED] glucose blood test strip 1 each by Other route Daily Use as instructed No current facility-administered medications on file prior to visit. I have reviewed and reconciled the history and medication list with the patient today. Allergies Allergen Reactions Atorvastatin Other Reaction(s): Other myalgias Social History Tobacco Use Smoking status: Never Smokeless tobacco: Never Substance Use Topics Alcohol use: Not Currently No family history on file. 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 No pertinent surgical history. Visit Vitals BP 130/74 Pulse 56 Ht 5' 6.75 Wt 197 lb SpO2 96% BMI 31.09 kg/m Smoking Status Never BSA 2.05 m Review of Systems Constitutional: Negative for fatigue. Respiratory: Negative for shortness of breath. Cardiovascular: Negative for chest pain and palpitations. Objective Physical Exam Constitutional: General: He is not in acute distress. Appearance: He is normal weight. He is not ill-appearing. HENT: Head: Normocephalic. Comments: Subcutaneous nodule, 8mm with central ulcer Cardiovascular: Rate and Rhythm: Normal rate and regular rhythm. Heart sounds: Normal heart sounds. No murmur heard. Pulmonary: Effort: Pulmonary effort is normal. Breath sounds: Normal breath sounds. Musculoskeletal: General: No swelling. Right lower leg: No edema. Left lower leg: No edema. Neurological: Mental Status: He is alert. Psychiatric: Mood and Affect: Mood normal. Thought Content: Thought content normal. Judgment: Judgment normal. Office Visit on 09/01/2024 Component Date Value Ref Range Status Hemoglobin A1C 09/01/2024 7.0 Final Assessment/Plan Diagnoses and all orders for this visit: Type 2 diabetes mellitus with other circulatory complications ([facility]) - POCT Glycated hemoglobin, total - glucose blood test strip; 1 each by Other route Daily Use as instructed - FSBS log shows good control, most recent A1C is at or near goal. Continue current treatment plan as previously outlined without changes. Basal cell carcinoma of neck - Ambulatory referral to Dermatology; Future Combined hyperlipidemia (CMS/HCC) - He notes hs thigh mylgias several days a week. Hold Crestor (taking M,W,F at present) to see if that is the cause. If so will need PKS-9 inhibitor Coronary artery disease involving iliamna coronary artery of iliamna heart without angina pectoris (CMS/HCC) - Asymptomatic Myalgia - See above. Follow up in about 3 months (around 12/02/2024) for Routine F/U. documented in this encounter [facility] Healthcare Evaluation note Diagnosis Type 2 diabetes mellitus with other circulatory complications (CMS/HCC)- Primary Basal cell carcinoma of neck Combined hyperlipidemia (CMS/HCC) Other and unspecified hyperlipidemia Coronary artery disease involving iliamna coronary artery of iliamna heart without angina pectoris (CMS/HCC) Myalgia Unspecified myalgia and myositis documented in this encounter [facility]* Diagnosis Open comedone- Primary Other acne documented in this encounter [facility] HealthcareEvaluation note* Diagnosis Coronary artery disease involving iliamna coronary artery of iliamna heart without angina pectoris (CMS/HCC)- Primary Type 2 diabetes mellitus with other circulatory complications (CMS/HCC) Type 2 diabetes mellitus with other specified complication (CMS/HCC) Male erectile dysfunction, unspecified Paroxysmal atrial fibrillation (CMS/HCC) Atrial fibrillation Combined hyperlipidemia (CMS/HCC) Other and unspecified hyperlipidemia Statin intolerance documented in this encounter [facility] HealthcareEvaluation note* Diagnosis Combined forms of age-related cataract of right eye- Primary Other and combined forms of senile cataract documented in this encounter [facility] [employer] [facility]* Diagnosis Combined forms of age-related cataract of left eye- Primary Other and combined forms of senile cataract documented in this encounter [facility] [employer] [facility] Consultation (Routine) - Authorized Specialty Diagnoses / Procedures Referred By Contac t Referred To Contact Dermatology Diagnoses Basal cell carcinoma of neck Procedures [place] OFFICE/OUTPATIENT NEW HIGH MDM 60 MINUTES Kojo Rodriguez MD [address] [place] [address] Yoli Palomo MD [address] [place] [address] Referral ID Status Reason Start Date Expiration Date Visits Requested Visits Authorized [id number] Authorized Specialty Services Required 02/28/2025 1 1 [facility] Narrative* Consultation (Routine) - Closed Specialty Diagnoses / Procedures Referred By Contac t Referred To Contact Dermatology Diagnoses Basal cell carcinoma of neck Procedures [place] OFFICE/OUTPATIENT NEW [facility] MDM 60 MINUTES Kojo Rodriguez MD [address] [facility] [address] [place] [address] Phone: tel: fax: Yoli aPlomo MD [address] [place] [place] [address] Referral ID Status Reason Start Date Expiration Date V isits Requested Visits Authorized [id number] Closed Specialty Services Required 09/01/2024 02/28/2025 1 1 [facility] Narrative* Auth/Cert Specialty Diagnoses / Procedures Referred By Johanny rousseau Referred To Contact Diagnoses Combined forms of age-related cataract of both eyes h25.813 Procedures [place] XCAPSL CTRC RMVL INSJ IO LENS PROSTH W/O ECP EYE CATARACT EMULSIFICATION INTRAOCULAR LENS IMPLANT Trena Horvath, DO [address] [place] [address] Phone: tel: fax: [facility] [employer] [address] [place] [address] Referral ID Status Reason Start Date Expiration Date Visits Re quested Visits Authorized [id number] 1 1 [employer] Summary Purpose Family History No Family History Records FoundNo Family History Records FoundNo Family History Records FoundNo Family History Records FoundNo Family History Records FoundNo Family History Records Found Advance Directives No Advanced Directives Records Found Date Activated Date Inactivated Comments 12/26/2024 7:47 AM Date Activated Date Inactivated Comments 01/30/2025 8:46 AM Date Activated Date Inactivated Comments 12/26/2024 7:47 AM 12/26/2024 11:54 AM Hospital Course Note MR#: [id number] [facility] Pt. Name: Tyler Villegas Admitted: 10/05/2019 Discharged: 10/12/2019 Date of : 1950 Physician: Joselo Raymundo MD DISCHARGE SUMMARY PRINCIPAL DIAGNOSIS: Atherosclerotic heart disease. ADMISSION MEDICATIONS: Cetirizine 10 mg tablet daily, glucosamine chondroitin oral 1500/1103 one to two capsules oral daily, metformin 1000 mg tablet oral b.i.d., multivitamin, omeprazole 20 mg capsule daily, potassium 99 mg tablet daily, saw palmetto oral 450 mg 1-2 capsules daily. HISTORY OF PRESENT ILLNESS: The patient is a 69-year-old active male who started having chest pain about 2 months ago while he was hiking. He stated that his chest pain never lasted more than 2-3 minutes and went away with rest. He became concerned about 2 weeks before presentation when it took him longer than his friend to complete a 2-hour hike. He had to stop and rest due to chest pressure, fatigue, and shortness of breath. He had a positive stress test on (more content not included)... Additional Source Comments (unrecognized sect ion and content) No Status Records FoundNo Status Records FoundNo Status Records FoundNo Status Records FoundNo Status Records FoundNo Status Records Found INFORMATION SOURCE (unrecogn ized section and content) DATE CREATED AUTHOR 11/02/2019 [facility] DATE CREATED AUTHOR AUTHOR'S ORGANIZ ATION 01/12/2023 [facility] DATE CREATED AUTHOR AUTHOR'S ORGANIZ ATION 01/30/2025 [facility] DATE CREATED AUTHOR AUTHOR'S ORGANIZ ATION 02/13/2025 [facility] EPIC DATE CREATED AUTHOR AUTHOR'S ORGANIZ ATION 02/15/2025 [facility] DATE CREATED AUTHOR AUTHOR'S ORGANIZ ATION 04/06/2025 [facility] Care Teams (unrecognized sec tion and content) Pcu Rn Relationship Specialty Start Date End Date Kojo Rodriguez MD [address] [place] [address] [address] [place] [address] PCP - General Internal Medicine 03/31/23 Kojo Rodriguez MD [address] [place] [address] PCP - ACO Reach 01/22/24 Pcu Rn Relationship Specialty Start Date End Date Kojo Rodriguez MD [address] [place] [address] PCP - General Internal Medicine 03/31/23 Kojo Rodriguez MD [address] [place] [address] PCP - ACO Reach 01/22/24 Pcu Rn Relationship Specialty Start Date End Date Kojo Rodriguez MD [address] [place] [address] PCP - General Internal Medicine 03/31/23 Kojo Rodriguez MD [address] [place] [address] PCP - ACO Reach 01/22/24 Pcu Rn Relationship Specialty Start Date End Date Kojo Rodriguez MD [address] [place] [address] PCP - General Internal Medicine 03/31/23 Kojo Rodriguez MD [address] [place] [address] PCP - ACO Reach 01/22/24 Pcu Rn Relationship Specialty Start Date End Date Kojo Rodriguez MD [address] [place] [address] PCP - General Internal Medicine 03/31/23 Kojo Rodriguez MD [address] [place] [address] PCP - ACO Reach 01/22/24 Pcu Rn Relationship Specialty Start Date End Date Kojo Rodriguez MD [address] [place] [address] PCP - General Internal Medicine 12/20/24 Pcu Rn Relationship Specialty Start Date End Date Kojo Rodriguez MD [address] [facility] [address] [place] [address] PCP - General Internal Medicine 12/20/24 Reason for Visit (unrecogniz ed section and content) Reason Comments Coronary Artery Disease Diabetes Reason Comments Diabetes follow up hyperlipidema/myalgia Was advi sed to stop crestor last visit Med Refill Metformin--calvint t iffin Specialty Diagnoses / Procedures Referred By Johanny rousseau Referred To Contact Diagnoses Combined forms of age-related cataract 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 cataract of both eyes [H25.813] Procedures AZ XCAPSL CTRC RMVL INSJ IO LENS PROSTH W/O ECP EYE CATARACT EMULSIFICATION INTRAOCULAR LENS IMPLANT Trena Horvath, DO [address] [place] [address] [facility] [address] [place] [address] Referral ID Status Reason Start Date Expiration Date Visits Re quested Visits Authorized [id number] 1 1 Scheduled Active and Recently Administ ered Medications (unrecognized section and content) Medication Order 12/24/2024 12/25/2024 12/26/2024 phenylephrine (MYDFRIN) 2.5 % ophthalmic solution 1 drop 1 drop, Right Eye, SEE ADMIN INSTRUCTIONS, Starting on Thu12/26/24 at 0747, Until Discontinued, To operative eye(s) for 3-5 doses every 5 minutes, starting 30 minutes prior to surgery, RPh - enter number of doses based on parameters defined by the physician in the admin. comments., Pre-op (day of surgery) 0802 (Given - Provid er: Leah Reddy RN)0809 (Given - Provider: Leah Reddy RN)0814 (Given - Provider: Leah Reddy RN) proparacaine (ALCAINE) 0.5 % ophthalmic solution 1 drop 1 drop, Right Eye, SEE ADMIN INSTRUCTIONS, Starting on Thu12/26/24 at 0747, Until Discontinued, Into the operative eye(s) every 5 minutes for PRN doses starting 30 minutes prior to surgery., Pre-op (day of surgery) 0801 (Given - Provid er: Leah Reddy RN)08 (Given - Provider: Leah Reddy RN)0814 (Given - Provider: Leah Reddy RN) sodium chloride flush 0.9 % injection 5-40 mL 5-40 mL, IntraVENous, EVERY 12 HOURS SCHEDULED (2 times per day), First dose on Thu12/26/24 at 0900, Until Discontinued, For Line Patency: Peripheral IV = 5 mL; Midline or Central Line = 10 mL/lumen. If following IV push medication, administer flush at same rate as the IV push. Flush volume is determined by type of infusion therapy being given. For non-viscous solutions use: Peripheral IV = 5 mL Midline or Central Line = 10 mL/lumen For viscous solutions (i.e. blood components, parenteral nutrition, contrast media, or after obtaining blood sample) use: Peripheral IV = 10 mL Midline or Central Line = 20 mL/lumen, Pre-op (day of surgery) 0900 (Due)2100 (Due) sodium chloride flush 0.9 % injection 5-40 mL 5-40 mL, IntraVENous, EVERY 12 HOURS SCHEDULED (2 times per day), First dose on Thu12/26/24 at 1000, Until Discontinued, For Line Patency: Peripheral IV = 5 mL; Midline or Central Line = 10 mL/lumen. If following IV push medication, administer flush at same rate as the IV push. Flush volume is determined by type of infusion therapy being given. For non-viscous solutions use: Peripheral IV = 5 mL Midline or Central Line = 10 mL/lumen For viscous solutions (i.e. blood components, parenteral nutrition, contrast media, or after obtaining blood sample) use: Peripheral IV = 10 mL Midline or Central Line = 20 mL/lumen, PACU only 1000 (Due)2100 (Due) sodium chloride flush 0.9 % injection 5-40 mL 5-40 mL, IntraVENous, EVERY 12 HOURS SCHEDULED (2 times per day), First dose on Thu12/26/24 at 1000, Until Discontinued, For Line Patency: Peripheral IV = 5 mL; Midline or Central Line = 10 mL/lumen. If following IV push medication, administer flush at same rate as the IV push. Flush volume is determined by type of infusion therapy being given. For non-viscous solutions use: Peripheral IV = 5 mL Midline or Central Line = 10 mL/lumen For viscous solutions (i.e. blood components, parenteral nutrition, contrast media, or after obtaining blood sample) use: Peripheral IV = 10 mL Midline or Central Line = 20 mL/lumen, Post-op 1000 (Due)2100 (Due) tetracaine (TETRAVISC) 0.5 % ophthalmic solution 1 drop 1 drop, Right Eye, SEE ADMIN INSTRUCTIONS, Starting on Thu12/26/24 at 0747, Until Discontinued, Into the operative eye(s) every 5 minutes for PRN doses starting 30 minutes prior to surgery., Pre-op (day of surgery) 0853 (Given - Provid er: Romina Wilder RN) tropicamide (MYDRIACYL) 1 % ophthalmic solution 1 drop 1 drop, Right Eye, SEE ADMIN INSTRUCTIONS, Starting on Thu12/26/24 at 0747, Until Discontinued, To operative eye(s) for 3-5 doses every 5 minutes, starting 30 minutes prior to surgery, RPh - enter number of doses based on parameters defined by the physician in the admin. comments., Pre-op (day of surgery) 0802 (Given - Provid er: Leah Reddy RN)0809 (Given - Provider: Leah Reddy RN)0814 (Given - Provider: Leah Reddy RN) Continuous Medication Order 12/24/2024 12/25/2024 12/26/2024 0.9 % sodium chloride infusion IntraVENous, at 125 mL/hr, CONTINUOUS, Starting on Thu12/26/24 at 0815, Pre-op (day of surgery) 0815 (Due) lactated ringers infusion IntraVENous, at 100 mL/hr, CONTINUOUS, Starting on Thu12/26/24 at 0815, Pre-op (day of surgery) 0815 (Due) PRN Medication Order 12/24/2024 12/25/2024 12/26/2024 0.9 % sodium chloride infusion IntraVENous, at 5-250 mL/hr, PRN, if patient receiving piggyback infusions and maintenance fluids are not ordered, Starting on Thu12/26/24 at 0747, For piggyback infusion, administer at same rate as piggyback for a total of 25 mL. Enter 25 mL into dose field and piggyback rate into rate field of order. If piggyback is infusing at a rate less than 100 mL/hr, enter 25 mL into dose field and 100 mL/hr into rate field of order., Pre-op (day of surgery) 0.9 % sodium chloride infusion IntraVENous, at 5-250 mL/hr, PRN, if patient receiving piggyback infusions and maintenance fluids are not ordered, Starting on Thu12/26/24 at 0935, For piggyback infusion, administer at same rate as piggyback for a total of 25 mL. Enter 25 mL into dose field and piggyback rate into rate field of order. If piggyback is infusing at a rate less than 100 mL/hr, enter 25 mL into dose field and 100 mL/hr into rate field of order., PACU only 0.9 % sodium chloride infusion IntraVENous, at 5-250 mL/hr, PRN, if patient receiving piggyback infusions and maintenance fluids are not ordered, Starting on Thu12/26/24 at 0935, For piggyback infusion, administer at same rate as piggyback for a total of 25 mL. Enter 25 mL into dose field and piggyback rate into rate field of order. If piggyback is infusing at a rate less than 100 mL/hr, enter 25 mL into dose field and 100 mL/hr into rate field of order., Post-op balanced salts (BSS) 500 mL, EPINEPHrine 0.1 mg (CANCELED) PRN, Starting on Thu12/26/24 at 0920, Intra-op 0920 (Given - Provid er: Trena Horvath, DO) lidocaine 2 % injection (CANCELED) PRN, Starting on Thu12/26/24 at 0919, Until Thu12/26/24 at 0923, Intra-op 0919 (Given - Provid er: Trena Horvath, DO) naloxone 0.4 mg in 10 mL sodium chloride syringe IntraVENous, PRN, Opioid Reversal, Starting on Thu12/26/24 at 0935, PRN if respiratory rate is less than 6/min and patient is difficult to arouse then notify physician STAT. Mix 9 mL of sodium chloride 0.9% with 0.4 mg (1 mL) of naloxone (NARCAN) in 10 mL syringe. (Note: dilution is 0.04 mg/mL) Give 0.08 mg (2 mL of special dilution), slow IV push, repeat up to 0.4 mg (10 mL) or until patient is responsive to physical stimulation and respiratory rate is equal to or greater than 6 breaths/min. Continue to observe, if no response within 3 minutes of administration of 0.4 mg (10 mL) total, repeat dose (0.4 mg as administered previously). Concentration 0.04 mg/mL, PACU only sodium chloride flush 0.9 % injection 5-40 mL 5-40 mL, IntraVENous, PRN, Starting on Thu12/26/24 at 0747, Until Discontinued, Line Care, After every IV line use, For Line Patency: Peripheral IV = 5 mL; Midline or Central Line = 10 mL/lumen. If following IV push medication, administer flush at same rate as the IV push. Flush volume is determined by type of infusion therapy being given. For non-viscous solutions use: Peripheral IV = 5 mL Midline or Central Line = 10 mL/lumen For viscous solutions (i.e. blood components, parenteral nutrition, contrast media, or after obtaining blood sample) use: Peripheral IV = 10 mL Midline or Central Line = 20 mL/lumen, Pre-op (day of surgery) sodium chloride flush 0.9 % injection 5-40 mL 5-40 mL, IntraVENous, PRN, Starting on Thu12/26/24 at 0935, Until Discontinued, Line Care, After every IV line use, For Line Patency: Peripheral IV = 5 mL; Midline or Central Line = 10 mL/lumen. If following IV push medication, administer flush at same rate as the IV push. Flush volume is determined by type of infusion therapy being given. For non-viscous solutions use: Peripheral IV = 5 mL Midline or Central Line = 10 mL/lumen For viscous solutions (i.e. blood components, parenteral nutrition, contrast media, or after obtaining blood sample) use: Peripheral IV = 10 mL Midline or Central Line = 20 mL/lumen, PACU only sodium chloride flush 0.9 % injection 5-40 mL 5-40 mL, IntraVENous, PRN, Starting on Thu12/26/24 at 0935, Until Discontinued, Line Care, After every IV line use, For Line Patency: Peripheral IV = 5 mL; Midline or Central Line = 10 mL/lumen. If following IV push medication, administer flush at same rate as the IV push. Flush volume is determined by type of infusion therapy being given. For non-viscous solutions use: Peripheral IV = 5 mL Midline or Central Line = 10 mL/lumen For viscous solutions (i.e. blood components, parenteral nutrition, contrast media, or after obtaining blood sample) use: Peripheral IV = 10 mL Midline or Central Line = 20 mL/lumen, Post-op Scheduled Medication Order 01/28/2025 01/29/2025 01/30/2025 phenylephrine (MYDFRIN) 2.5 % ophthalmic solution 1 drop 1 drop, Left Eye, SEE ADMIN INSTRUCTIONS, Starting on Thu01/30/25 at 0846, Until Discontinued, To operative eye(s) for 3-5 doses every 5 minutes, starting 30 minutes prior to surgery until dilated, [facility] - enter number of doses based on parameters defined by the physician in the admin. comments., Pre-op (day of surgery) 0908 (Given - Provid er: Shanthi Parker RN)0913 (Given - Provider: Shanthi Parker RN)0918 (Given - Provider: Shanthi Parker RN) proparacaine (ALCAINE) 0.5 % ophthalmic solution 1 drop 1 drop, Left Eye, SEE ADMIN INSTRUCTIONS, Starting on Thu01/30/25 at 0846, Until Discontinued, Into the operative eye(s) every 5 minutes for PRN doses starting 30 minutes prior to surgery., Pre-op (day of surgery) 0908 (Given - Provid er: Shanthi Parker RN)0913 (Given - Provider: Shanthi Parker RN)0918 (Given - Provider: Shanthi Parker RN) sodium chloride flush 0.9 % injection 5-40 mL 5-40 mL, IntraVENous, EVERY 12 HOURS SCHEDULED (2 times per day), First dose on Thu01/30/25 at 0915, Until Discontinued, For Line Patency: Peripheral IV = 5 mL; Midline or Central Line = 10 mL/lumen. If following IV push medication, administer flush at same rate as the IV push. Flush volume is determined by type of infusion therapy being given. For non-viscous solutions use: Peripheral IV = 5 mL Midline or Central Line = 10 mL/lumen For viscous solutions (i.e. blood components, parenteral nutrition, contrast media, or after obtaining blood sample) use: Peripheral IV = 10 mL Midline or Central Line = 20 mL/lumen, Pre-op (day of surgery) 0915 (Due)2099 (Due) sodium chloride flush 0.9 % injection 5-40 mL 5-40 mL, IntraVENous, EVERY 12 HOURS SCHEDULED (2 times per day), First dose on Thu01/30/25 at 1130, Until Discontinued, For Line Patency: Peripheral IV = 5 mL; Midline or Central Line = 10 mL/lumen. If following IV push medication, administer flush at same rate as the IV push. Flush volume is determined by type of infusion therapy being given. For non-viscous solutions use: Peripheral IV = 5 mL Midline or Central Line = 10 mL/lumen For viscous solutions (i.e. blood components, parenteral nutrition, contrast media, or after obtaining blood sample) use: Peripheral IV = 10 mL Midline or Central Line = 20 mL/lumen, PACU only 1130 (Due)2099 (Due) sodium chloride flush 0.9 % injection 5-40 mL 5-40 mL, IntraVENous, EVERY 12 HOURS SCHEDULED (2 times per day), First dose on Thu01/30/25 at 1130, Until Discontinued, For Line Patency: Peripheral IV = 5 mL; Midline or Central Line = 10 mL/lumen. If following IV push medication, administer flush at same rate as the IV push. Flush volume is determined by type of infusion therapy being given. For non-viscous solutions use: Peripheral IV = 5 mL Midline or Central Line = 10 mL/lumen For viscous solutions (i.e. blood components, parenteral nutrition, contrast media, or after obtaining blood sample) use: Peripheral IV = 10 mL Midline or Central Line = 20 mL/lumen, Post-op 1130 (Due)2099 (Due) tetracaine (TETRAVISC) 0.5 % ophthalmic solution 1 drop 1 drop, Left Eye, SEE ADMIN INSTRUCTIONS, Starting on Thu01/30/25 at 0846, Until Discontinued, Into the operative eye(s) every 5 minutes for PRN doses starting 30 minutes prior to surgery., Pre-op (day of surgery) tropicamide (MYDRIACYL) 1 % ophthalmic solution 1 drop 1 drop, Left Eye, SEE ADMIN INSTRUCTIONS, Starting on Thu01/30/25 at 0846, Until Discontinued, To operative eye(s) for 3-5 doses every 5 minutes, starting 30 minutes prior to surgery until dilated, RPh - enter number of doses based on parameters defined by the physician in the admin. comments., Pre-op (day of surgery) 0908 (Given - Provid er: Shanthi Parker RN)09 (Given - Provider: Shanthi Parker RN)0918 (Given - Provider: Shanthi Parker RN) Continuous Medication Order 01/28/2025 01/29/2025 01/30/2025 0.9 % sodium chloride infusion IntraVENous, at 125 mL/hr, CONTINUOUS, Starting on Thu01/30/25 at 0915, Pre-op (day of surgery) 0921 (Not Given - Pr ovider: Shanthi Parker RN - Reason: Other - Comment: IVL) lactated ringers infusion IntraVENous, at 100 mL/hr, CONTINUOUS, Starting on Thu01/30/25 at 0915, Pre-op (day of surgery) 0922 (Not Given - Pr ovider: Shanthi Parker RN - Reason: Other - Comment: IVL) PRN Medication Order 01/28/2025 01/29/2025 01/30/2025 0.9 % sodium chloride infusion IntraVENous, at 5-250 mL/hr, PRN, if patient receiving piggyback infusions and maintenance fluids are not ordered, Starting on Thu01/30/25 at 0846, For piggyback infusion, administer at same rate as piggyback for a total of 25 mL. Enter 25 mL into dose field and piggyback rate into rate field of order. If piggyback is infusing at a rate less than 100 mL/hr, enter 25 mL into dose field and 100 mL/hr into rate field of order., Pre-op (day of surgery) 0.9 % sodium chloride infusion IntraVENous, at 5-250 mL/hr, PRN, if patient receiving piggyback infusions and maintenance fluids are not ordered, Starting on Thu01/30/25 at 1107, For piggyback infusion, administer at same rate as piggyback for a total of 25 mL. Enter 25 mL into dose field and piggyback rate into rate field of order. If piggyback is infusing at a rate less than 100 mL/hr, enter 25 mL into dose field and 100 mL/hr into rate field of order., PACU only 0.9 % sodium chloride infusion IntraVENous, at 5-250 mL/hr, PRN, if patient receiving piggyback infusions and maintenance fluids are not ordered, Starting on Thu01/30/25 at 1107, For piggyback infusion, administer at same rate as piggyback for a total of 25 mL. Enter 25 mL into dose field and piggyback rate into rate field of order. If piggyback is infusing at a rate less than 100 mL/hr, enter 25 mL into dose field and 100 mL/hr into rate field of order., Post-op balanced salts (BSS) ophthalmic solution (CANCELED) PRN, Starting on Thu01/30/25 at 1044, Until Thu01/30/25 at 1058, Intra-op 1044 (Given - Provid er: Trena Horvath DO) EPINEPHrine (EPINEPHrine HCL) 1 mg/10 mL injection (CANCELED) PRN, Starting on Thu01/30/25 at 1045, Until Thu01/30/25 at 1058, Intra-op 1045 (Given - Provid er: Trena Horvath DO) naloxone 0.4 mg in 10 mL sodium chloride syringe IntraVENous, PRN, Opioid Reversal, Starting on Thu01/30/25 at 1107, PRN if respiratory rate is less than 6/min and patient is difficult to arouse then notify physician STAT. Mix 9 mL of sodium chloride 0.9% with 0.4 mg (1 mL) of naloxone (NARCAN) in 10 mL syringe. (Note: dilution is 0.04 mg/mL) Give 0.08 mg (2 mL of special dilution), slow IV push, repeat up to 0.4 mg (10 mL) or until patient is responsive to physical stimulation and respiratory rate is equal to or greater than 6 breaths/min. Continue to observe, if no response within 3 minutes of administration of 0.4 mg (10 mL) total, repeat dose (0.4 mg as administered previously). Concentration 0.04 mg/mL, PACU only sodium chloride flush 0.9 % injection 5-40 mL 5-40 mL, IntraVENous, PRN, Starting on Thu01/30/25 at 0846, Until Discontinued, Line Care, After every IV line use, For Line Patency: Peripheral IV = 5 mL; Midline or Central Line = 10 mL/lumen. If following IV push medication, administer flush at same rate as the IV push. Flush volume is determined by type of infusion therapy being given. For non-viscous solutions use: Peripheral IV = 5 mL Midline or Central Line = 10 mL/lumen For viscous solutions (i.e. blood components, parenteral nutrition, contrast media, or after obtaining blood sample) use: Peripheral IV = 10 mL Midline or Central Line = 20 mL/lumen, Pre-op (day of surgery) sodium chloride flush 0.9 % injection 5-40 mL 5-40 mL, IntraVENous, PRN, Starting on Thu01/30/25 at 1107, Until Discontinued, Line Care, After every IV line use, For Line Patency: Peripheral IV = 5 mL; Midline or Central Line = 10 mL/lumen. If following IV push medication, administer flush at same rate as the IV push. Flush volume is determined by type of infusion therapy being given. For non-viscous solutions use: Peripheral IV = 5 mL Midline or Central Line = 10 mL/lumen For viscous solutions (i.e. blood components, parenteral nutrition, contrast media, or after obtaining blood sample) use: Peripheral IV = 10 mL Midline or Central Line = 20 mL/lumen, PACU only sodium chloride flush 0.9 % injection 5-40 mL 5-40 mL, IntraVENous, PRN, Starting on Thu01/30/25 at 1107, Until Discontinued, Line Care, After every IV line use, For Line Patency: Peripheral IV = 5 mL; Midline or Central Line = 10 mL/lumen. If following IV push medication, administer flush at same rate as the IV push. Flush volume is determined by type of infusion therapy being given. For non-viscous solutions use: Peripheral IV = 5 mL Midline or Central Line = 10 mL/lumen For viscous solutions (i.e. blood components, parenteral nutrition, contrast media, or after obtaining blood sample) use: Peripheral IV = 10 mL Midline or Central Line = 20 mL/lumen, Post-op tetracaine (TETRAVISC) 0.5 % ophthalmic solution (CANCELED) PRN, Starting on 01/30/25 at 1044, Until Thu01/30/25 at 1058, Intra-op 1044 (Given - Provid er: Trena Horvath DO) FOR RECORDS PERTAINING TO PATIENTS WHO ARE OR HAVE BEEN ENROLLED IN A CHEMICAL DEPENDENCY/SUBSTANCEABUSE PROGRAM, SOME INFORMATION MAY BE OMITTED. This clinical summary was aggregated from multiple sources. Caution should be exercised in using it in the provision of clinical care. This summary normalizes information from multiple sources, and as a consequence, information in this document may materially change the coding, format and clinical context of patient data. In addition, data may be omitted in some cases. CLINICAL DECISIONS SHOULD BE BASED ON THE PRIMARY CLINICAL RECORDS. [employer] provides no warranty or guarantee of the accuracy or completeness of information in this document.
--- NOTE | 2025-04-12 10:45 | NM_ITS ---
Patient Name: TYLER SANDY MR#: [id number] : 1950 Exam Date: 04/12/2025 Ordering Doctor: DR DONNA HOOKS M.D. RADIOLOGY REPORT PROCEDURE: NM CASSANDRA PERF SPECT REST STR COMPARISON: None. INDICATIONS: CORONARY ARTERY DISEASE TECHNIQUE: Exam Description: Stress/Rest one day protocol gated SPECT Rest Imagin.7 mCi Tc-99m Cardiolite IV on 04/12/2025 Stress Imaging 30.8 mCi Tc-99m Cardiolite IV on 04/12/2025 Exercise Protocol: Armand Heart Rate (bpm): Rest: 53 Max: 144 PMHR: 98 Blood Pressure: Rest: 160/80 Max: 190/84 Exercise Time: Minutes: 4 Seconds: 48 Stage Reached: Stage: 2 Mets 4.6 Symptoms: Rest and peak stress ECG findings were pending, and the exercise portion of the study was pending per attending physician [facility]. For more details, please see separate cardiac stress test report. FINDINGS: QUALITY OF STUDY: Good PERFUSION DEFECT: LOCATION: N/A SIZE: N/A SEVERITY: N/A TYPE: N/A WALL MOTION: Normal wall motion LV SIZE: 92 mL. TID / TCD: 0.7 LVEF: Calculated EF 68%. SUMMARY: Myocardial perfusion imaging study is normal CONCLUSION: 1. Myocardial perfusion is normal 2. Global left ventricular systolic function is normal 3. No evidence of transient ischemic dilatation Dictated by: Donna Hooks M.D. on 04/12/2025 at 16:49 Approved by: Donna Hooks M.D. on 04/12/2025 at 16:51
--- NOTE | 2025-04-13 12:33 | PM.STRESS ---
Stress Test Stress Test Requesting physician: Flavio Hooks Procedure: Treadmill Cardiolite stress test General Information: Reason for Stress Test: [Coronary artery disease] Cardiac History and Risk Factors: [CAD, hypertension, diabetes] Resting 12 - Lead Electrocardiogram: Normal sinus rhythm Normal ECG Stress Test: Protocol: [Armand] Exercise Capacity: [Fair] Blood Pressure Response: [Resting hypertension appropriate response] Rhythm: [Sinus, premature supraventricular complexes, premature ventricular complexes, short runs of SVT] ST - Response: [No significant ST-T wave changes] Patient Response: [No symptoms] Resting heart rate 53 bpm increasing to a maximum of 144 bpm. Resting blood pressure was 160/80 with a peak blood pressure of 190/84. The patient's heart rate was 98% of maximum predicted heart rate. He exercised for 4 minutes and 48 seconds. Stage one of the Armand protocol was achieved. Maximum METS 4.6. Interpretation: 1. No ischemic EKG changes seen on treadmill stress test. 2. Infrequent supraventricular and ventricular ectopy. 3. Resting hypertension with appropriate blood pressure response to exercise. 4. Appropriate heart rate response to exercise. 5. Calloway treadmill score is +4.5. Estimated 1 year mortality: 1.3 to 2.9%. Risk category: Moderate risk. Angiography: May be indicated.
== END 2025-04-12 10:31 | disposition home or self-care (01) ==
LOC: NM 10:32
PROVIDERS: PCP Internal Medicine; Visit Provider Internal Medicine Interventional Cardiology
DX: I25.10 Atherosclerotic heart disease of native coronary artery without angina pectoris (principal)
CPT/HCPCS: 78452; 93017; A9500

== ENCOUNTER 2025-07-03 07:24 | Outpatient (RCR) | payer MEDICARE, SELFPAY ==
[2025-07-03 09:30] VITALS: BP 133/76; PULSE 62; TEMP 35.9; O2SAT 97
[2025-07-03] MEDS: INCLISIRAN SODIUM 284 MG/1.5 ML SYRINGE SQ (09:44)
== END 2025-07-23 23:59 | disposition home or self-care (01) ==
LOC: INF 07:24
PROVIDERS: PCP Internal Medicine; Visit Provider Internal Medicine Interventional Cardiology
DX: I25.10 Atherosclerotic heart disease of native coronary artery without angina pectoris (principal); E78.5 Hyperlipidemia, unspecified
CPT/HCPCS: 96372; J1306

== ENCOUNTER 2025-10-13 09:56 | Outpatient (RCR) | payer MEDICARE, SELFPAY ==
[2025-10-13] MEDS: INCLISIRAN SODIUM 284 MG/1.5 ML SYRINGE SQ (10:06)
[2025-10-13 10:09] VITALS: BP 183/75; PULSE 48; TEMP 36.4; O2SAT 95
== END 2025-10-22 23:59 | disposition home or self-care (01) ==
LOC: INF 09:56
PROVIDERS: PCP Internal Medicine; Visit Provider Internal Medicine Interventional Cardiology
DX: I25.10 Atherosclerotic heart disease of native coronary artery without angina pectoris (principal); E78.5 Hyperlipidemia, unspecified
CPT/HCPCS: 96372; J1306